=== PATIENT | male | born 1960 | race Caucasian/White ===

== ENCOUNTER 2018-02-17 14:40 | Inpatient (IN) | payer MEDICARE, OTHER ==
[~2018-02-17] VITALS: Ht 177.8 cm; Wt 80.5 kg
[~2018-02-17 14:40] MED LIST: ASPI-516 CHEW; CARV3.12 PO; CARV6.25 PO; COLA100C5; LORA1TAB12 PO; THERTAB17 PO
[2018-02-17 15:13] VITALS: BP 174/100; PULSE 80; RESP 20; TEMP 98.9; O2SAT 98
--- NOTE | 2018-02-17 16:51 | PD ---
HPI Chief Complaint: Injury Time Seen by Provider: 16:20 Travel History International Travel<30 days: No Contact w/Intl Traveler<30days: No Traveled to known affect area: No PFSH Past Medical History Diabetes: Yes Patient Takes Glucophage: No Hypertension: Yes Renal Failure: Yes (DAILY PERONTINEAL DIALYSIS) Past Surgical History Cardiac Surgery: Yes (QUAD BYPASS ) Cholecystectomy: Yes Social History Alcohol Use: No Tobacco Use: No Substance Use: No Allergies-Medications (Allergen,Severity, Reaction): Coded Allergies: gabapentin (Unverified Allergy, Mild, Itching, 02/17/18) Reported Meds & Prescriptions Reported Meds & Active Scripts Active Reported Aspirin 81 Mg Chew 81 Mg CHEW DAILY Colace (Docusate Sodium) 100 Mg Capsule Coreg (Carvedilol) 6.25 Mg Tab 6.25 Mg PO BID Lorazepam 1 Mg Tab 1 Mg PO BID PRN Thera-M (Multiple Vitamins W/ Minerals) 1 Tab 1 Tab PO DAILT Carvedilol 3.125 Mg Tab 3.125 Mg PO BID Data Data Last Documented VS Vital Signs Date Time Temp Pulse Resp B/P (MAP) Pulse Ox O2 Delivery O2 Flow Rate FiO2 02/17/18 15:13 98.9 80 20 174/100 (124) 98 Orders Orders Foot, Complete ([id number]) (02/17/18 ) Complete Blood Count With Diff (02/17/18 17:22) Basic Metabolic Panel (Bmp) (02/17/18 17:22) Westergren Sedimentation Rate (02/17/18 17:22) C-Reactive Protein (Crp) (02/17/18 17:22) Ecg Monitoring (02/17/18 17:22) Iv Access Insert/Monitor (02/17/18 17:22) Oximetry (02/17/18 17:22) Sodium Chloride 0.9% Flush (Ns Flush) (02/17/18 17:30) Tristan Shukla MD Feb 17, 2018 16:51
--- NOTE | 2018-02-17 17:02 | RADRPT ---
EXAM DATE/TIME: 02/17/2018 16:46 [place] COMPARISON: No previous studies available for comparison. INDICATIONS : Left foot pain Patient states he burn the top of foot. MEDICAL HISTORY : Diabetes mellitus type II. SURGICAL HISTORY : None. ENCOUNTER: Initial ACUITY: 1 day PAIN SCORE: 0/10 LOCATION: Left chest FINDINGS: Three view examination of the left foot demonstrates no soft tissue swelling, dislocation, or fractur e. The tarsal bones appear intact. Extensive digital artery calcifications. The interphalangeal a nd metatarsophalangeal joints are intact. The calcaneus is intact. Bony mineralization is normal. CONCLUSION: Negative fast myelitis Gene Garcia MD FACR on February 17, 2018 at 16:59 Board Certified Radiologist. This report was verified electronically.
--- NOTE | 2018-02-17 17:29 | PD ---
HPI Chief Complaint: Injury Time Seen by Provider: 16:20 Travel History International Travel<30 days: No Contact w/Intl Traveler<30days: No Traveled to known affect area: No History of Present Illness HPI Patient is a 57-year-old male presents emergency department for evaluation of left great toe, left second toe and left dorsum of the foot wounds. Patient states about a week ago he was sitting too close to a radiator and he brought the top of his foot. He states his been following with the wound care doctor in on Tuesday when seen she wanted to see him back on Tuesday because it was not too bad. When he went back today she noted that it was much worse and I directed him to the emergency department. Patient has not been on antibiotics, denies any significant pain. PFSH Past Medical History Diabetes: Yes Patient Takes Glucophage: No Hypertension: Yes Renal Failure: Yes (DAILY PERONTINEAL DIALYSIS) Past Surgical History Cardiac Surgery: Yes (QUAD BYPASS ) Cholecystectomy: Yes Social History Alcohol Use: No Tobacco Use: No Substance Use: No Allergies-Medications (Allergen,Severity, Reaction): Coded Allergies: gabapentin (Unverified Allergy, Mild, Itching, 02/17/18) Reported Meds & Prescriptions Reported Meds & Active Scripts Active Reported Ambien (Zolpidem Tartrate) 10 Mg Tab 10 Mg PO HS PRN Calcium Acetate (Calcium Acetate (Phosphate Bin) 667 Mg Cap 1 Tab PO TID Isosorbide Mononitrate ER (Isosorbide Mononitrate) 60 Mg Tab 60 Mg PO DAILY Aspirin 81 Mg Chew 81 Mg CHEW DAILY Coreg (Carvedilol) 6.25 Mg Tab 6.25 Mg PO BID Lorazepam 1 Mg Tab 1 Mg PO BID PRN Thera-M (Multiple Vitamins W/ Minerals) 1 Tab 1 Tab PO DAILT Review of Systems Except as stated in HPI: all other systems reviewed are Neg Physical Exam Narrative GENERAL: Well-developed well-nourished in no obvious distress SKIN: Focused skin assessment warm/dry. There is a second-degree burn over the less than 1% of the body surface area over the dorsum of his foot, surrounding small cysts first-degree lopez. There is dry gangrene over the distal third of the distal phalanx on the left great toe, the tip of the left second toe appears to be involved as well but only the tip and is only mildly discolored. Cap refill is brisk in the remainder of the toes peer HEAD: Atraumatic. Normocephalic. EYES: Pupils equal and round. No scleral icterus. No injection or drainage. ENT: No nasal bleeding or discharge. Mucous membranes pink and moist. NECK: Trachea midline. No JVD. CARDIOVASCULAR: Regular rate and rhythm. No murmur appreciated. RESPIRATORY: No accessory muscle use. Clear to auscultation. Breath sounds equal bilaterally. GASTROINTESTINAL: Abdomen soft, non-tender, nondistended. Hepatic and splenic margins not palpable. MUSCULOSKELETAL: No obvious deformities. No clubbing. No cyanosis. No edema. NEUROLOGICAL: Awake and alert. No obvious cranial nerve deficits. Motor grossly within normal limits. Normal speech. PSYCHIATRIC: Appropriate mood and affect; insight and judgment normal. Data Data Last Documented VS Vital Signs Date Time Temp Pulse Resp B/P (MAP) Pulse Ox O2 Delivery O2 Flow Rate FiO2 02/17/18 20:00 78 16 172/92 (118) 96 Room Air 02/17/18 15:13 98.9 Orders Orders Foot, Complete ([id number]) (02/17/18 ) Complete Blood Count With Diff (02/17/18 17:22) Basic Metabolic Panel (Bmp) (02/17/18 17:22) Westergren Sedimentation Rate (02/17/18 17:22) C-Reactive Protein (Crp) (02/17/18 17:22) Ecg Monitoring (02/17/18 17:22) Iv Access Insert/Monitor (02/17/18 17:22) Oximetry (02/17/18 17:22) Sodium Chloride 0.9% Flush (Ns Flush) (02/17/18 17:30) Piperacil-Tazo 3.375 Gm Premix (Zosyn 3. (02/17/18 18:30) Potassium, Serum (K) (02/17/18 22:44) Insulin Human Regular Inj (Novolin R Inj (02/17/18 20:00) Dextrose 50% In Rohit (Vial) Inj (D50w (Vi (02/17/18 19:45) Sodium Bicarbonate 8.4% Inj (Sodium Bica (02/17/18 19:45) Albuterol Concentrated Neb (Albuterol Co (02/17/18 19:45) Admit Order (Ed Use Only) (02/17/18 20:06) Labs Laboratory Tests Test 02/17/18 17:50 White Blood Count 9.2 TH/MM3 Red Blood Count 5.07 MIL/MM3 Hemoglobin 15.4 GM/DL Hematocrit 46.4 % Mean Corpuscular Volume 91.4 FL Mean Corpuscular Hemoglobin 30.3 PG Mean Corpuscular Hemoglobin Concent 33.1 % Red Cell Distribution Width 14.8 % Platelet Count 248 TH/MM3 Mean Platelet Volume 7.4 FL Neutrophils (%) (Auto) 63.1 % Lymphocytes (%) (Auto) 13.8 % Monocytes (%) (Auto) 12.2 % Eosinophils (%) (Auto) 9.6 % Basophils (%) (Auto) 1.3 % Neutrophils # (Auto) 5.8 TH/MM3 Lymphocytes # (Auto) 1.3 TH/MM3 Monocytes # (Auto) 1.1 TH/MM3 Eosinophils # (Auto) 0.9 TH/MM3 Basophils # (Auto) 0.1 TH/MM3 CBC Comment DIFF FINAL Differential Comment Erythrocyte Sedimentation Rate 49 mm/hr Blood Urea Nitrogen 44 MG/DL Creatinine 5.33 MG/DL Random Glucose 75 MG/DL Calcium Level 8.3 MG/DL Sodium Level 128 MEQ/L Potassium Level 6.5 MEQ/L Chloride Level 94 MEQ/L Carbon Dioxide Level 23.3 MEQ/L Anion Gap 11 MEQ/L Estimat Glomerular Filtration Rate 11 ML/MIN C-Reactive Protein 2.20 MG/DL MDM Medical Decision Making Medical Screen Exam Complete: Yes Emergency Medical Condition: Yes Differential Diagnosis Peripheral vascular disease, dry gangrene of the toes, third-degree burn is a possibility as well Narrative Course Patient seen and examined by me initially, he was discussed with the bilingual speech language pathologist on air host, initially the thought processes the patient may be able to go home with dry gangrene diagnosis and follow-up with a bilingual speech language pathologist. Patient was signed out to Dr. Moser, waiting for his final labs to disposition him appropriately. Diagnosis Primary Impression: Dry gangrene Referrals: María Hernandez DPTe[facility] Additional Instructions: Follow-up with Dr. Hernandez at 830 on Tuesday Disposition: 01 DISCHARGE HOME Condition: Stable Tristan Shukla MD Feb 17, 2018 17:29
[2018-02-17] MEDS ORDERED: SODIUM CHLORIDE 0.9% FLUSH 10 ML FLUSH IVF PRN (17:30)
[2018-02-17 18:20] LABS: AUTOMATED NEUTROPHIL # 5.8 TH/MM3 (1.8-7.7); BASOPHIL # 0.1 TH/MM3 (0-0.2); BASOPHIL % 1.3 % (0.0-2.0); EOSINOPHIL # 0.9 TH/MM3 (0-0.4); EOSINOPHIL % 9.6 % (0.0-4.0); HEMATOCRIT 46.4 % (39.0-51.0); HEMOGLOBIN 15.4 GM/DL (13.0-17.0); LYMPH % 13.8 % (9.0-44.0); LYMPHOCYTE # 1.3 TH/MM3 (1.0-4.8); MEAN CELL VOLUME 91.4 FL (80.0-100.0); MEAN CORPUSCULAR HEMOGLOBIN 30.3 PG (27.0-34.0); MEAN CORPUSCULAR HGB CONC 33.1 % (32.0-36.0); MEAN PLATELET VOLUME 7.4 FL (7.0-11.0); MONO % 12.2 % (0.0-8.0); MONOCYTE # 1.1 TH/MM3 (0-0.9); NEUT % 63.1 % (16.0-70.0); PLATELET COUNT 248 TH/MM3 (150-450); RED BLOOD COUNT 5.07 MIL/MM3 (4.50-5.90); RED CELL DISTRIBUTION WIDTH 14.8 % (11.6-17.2); WHITE BLOOD COUNT 9.2 TH/MM3 (4.0-11.0)
[2018-02-17 18:25] VITALS: O2SAT 98
[2018-02-17] MEDS ORDERED: PIPERACIL-TAZO 3.375 GM PREMIX 50 ML IV ONE (18:30)
[2018-02-17 18:48] LABS: BICARBONATE 23.3 MEQ/L (21.0-32.0); C-REACTIVE PROTEIN 2.2 MG/DL (0.00-0.30); CALCIUM 8.3 MG/DL (8.5-10.1); CREATININE 5.33 MG/DL (0.60-1.30)
[2018-02-17] MEDS ORDERED: RESP: ALBUTEROL CONC 2.5 MG/0.5 ML NEB INH ONE (19:45)
[2018-02-17] MEDS ORDERED: SODIUM BICARBONATE 8.4% SOLN 50 MEQ/50 ML VIAL SLOW IVP ONE (19:45)
[2018-02-17] MEDS ORDERED: DEXTROSE 50% IN WATER 50 ML VIAL(D50) IV PUSH ONE (19:45)
[2018-02-17 20:00] VITALS: BP 172/92; PULSE 78; RESP 16; O2SAT 96
[2018-02-17] MEDS ORDERED: INSULIN HUMAN REGULAR 1,000 UNITS/10 ML VIAL IV PUSH ONE (20:00)
--- NOTE | 2018-02-17 20:10 | HHI.HP ---
HPI Service [facility] Primary Care Physician Jarad Lin MD Admission Diagnosis HYPERKALEMIA, NECROTIC TOE Diagnoses: (1) Dry gangrene Diagnosis: Principal (2) ESRD on peritoneal dialysis Diagnosis: Principal (3) HTN (hypertension) Diagnosis: Principal Travel History International Travel<30 Days: No Contact w/Intl Traveler <30 Da: No Traveled to Known Affected Are: No History of Present Illness This is a 57-year-old male with PMH of ESRD on PD and HTN who was referred to the ER by Wound Care Doctor for further evaluation of foot wound. Pt states he was sitting close to a radiator approx 1wk ago and thinks he may have inadvertently burned his foot. Noticed "blistering" of 2nd toe and blister to dorsum of left foot 2 days ago. Was seen by Wound Care, had wounds cleaned and instructed to return today for wound re-check. Today, noted to have necrotic lesion to left 1st toe, which patient states started 2 days ago. Denies fever or chills. Following w/ Dr. Franks for Nephrology. On arrival, BP 134/100, HR 80, O2 sat 98% on RA, Afebrile. WBC normal. ESR 49. K+ 6.5. Foot X-ray negative for Osteomyelitis. Dr. Magdaleno consulted by ER physician, will evaluate for surgical intervention. Review of Systems Except as stated in HPI: all other systems reviewed are Neg ROS: 14 point review of systems otherwise negative. Past Family Social History Past Medical History PMH: ESRD on PD and HTN Past Surgical History PAST SURGICAL HISTORY: CABG, Cholecystectomy Allergies: Coded Allergies: gabapentin (Unverified Allergy, Mild, Itching, 02/17/18) Family History PAST FAMILY HISTORY: Reviewed. No h/o DM or CAD Social History PAST SOCIAL HISTORY: Negative for alcohol, tobacco or drugs. Physical Exam Vital Signs Vital Signs Date Time Temp Pulse Resp B/P (MAP) Pulse Ox O2 Delivery O2 Flow Rate FiO2 02/17/18 18:25 98 Room Air 02/17/18 15:13 98.9 80 20 174/100 (124) 98 Physical Exam PE: GENERAL: Middle-aged white male in no acute distress. HEENT: PERRLA, EOMI. No scleral icterus or conjunctival pallor. No lid lag or facial droop. CARDIOVASCULAR: Regular rate and rhythm. No obvious murmurs to auscultation. No chest tenderness to palpation. RESPIRATORY: No obvious rhonchi or wheezing. Clear to auscultation. Breath sounds equal bilaterally. GASTROINTESTINAL: Abdomen soft, non-tender, nondistended. BS normal. MUSCULOSKELETAL: Extremities without clubbing, cyanosis, or edema. No obvious deformities. Left 1st toe w/ necrotic wound to distal phalanx, blister along left 2nd toe and dorsum of left foot, no purulent drainage. NEUROLOGICAL: Awake, alert and oriented x4. No focal neurologic deficits. Moving both upper and lower extremities spontaneously. Laboratory Laboratory Tests Test 02/17/18 17:50 White Blood Count 9.2 Red Blood Count 5.07 Hemoglobin 15.4 Hematocrit 46.4 Mean Corpuscular Volume 91.4 Mean Corpuscular Hemoglobin 30.3 Mean Corpuscular Hemoglobin Concent 33.1 Red Cell Distribution Width 14.8 Platelet Count 248 Mean Platelet Volume 7.4 Neutrophils (%) (Auto) 63.1 Lymphocytes (%) (Auto) 13.8 Monocytes (%) (Auto) 12.2 Eosinophils (%) (Auto) 9.6 Basophils (%) (Auto) 1.3 Neutrophils # (Auto) 5.8 Lymphocytes # (Auto) 1.3 Monocytes # (Auto) 1.1 Eosinophils # (Auto) 0.9 Basophils # (Auto) 0.1 CBC Comment DIFF FINAL Differential Comment Erythrocyte Sedimentation Rate 49 Blood Urea Nitrogen 44 Creatinine 5.33 Random Glucose 75 Calcium Level 8.3 Sodium Level 128 Potassium Level 6.5 Chloride Level 94 Carbon Dioxide Level 23.3 Anion Gap 11 Estimat Glomerular Filtration Rate 11 C-Reactive Protein 2.20 Result Diagram: 02/17/18 17502/17/18 175 Caprini VTE Risk Assessment Caprini VTE Risk Assessment: Mod/High Risk (score >= 2) Caprini Risk Assessment Model Point Value = 1 Point Value = 2 Point Value = 3 Point Value = 5 Age 41-60 Minor surgery BMI > 25 kg/m2 Swollen legs Varicose veins or History of unexplained or recurrent spontaneous Oral contraceptives or hormone replacement Sepsis (< 1 month) Serious lung disease, including pneumonia (< 1 month) Abnormal pulmonary function Acute myocardial infarction Congestive heart failure (< 1 month) History of inflammatory bowel disease Medical patient at bed rest Age 61-74 Arthroscopic surgery Major open surgery (> 45 min) Laparoscopic surgery (> 45 min) Malignancy Confined to bed (> 72 hours) Immobilizing plaster cast Central venous access Age >= 75 History of VTE Family history of VTE Factor V Leiden Prothrombin [id number] Lupus anticoagulant Anticardiolipin antibodies Elevated serum homocysteine Heparin-induced thrombocytopenia Other congenital or acquired thrombophilia Stroke (< 1 month) Elective arthroplasty Hip, pelvis, or leg fracture Acute spinal cord injury (< 1 month) Prophylaxis Regimen Total Risk Factor Score Risk Level Prophylaxis Regimen 0-1 Low Early ambulation 2 Moderate Order ONE of the following: *Sequential Compression Device (SCD) *Heparin 5000 units SQ BID 3-4 Higher Order ONE of the following medications: *Heparin 5000 units SQ TID *Enoxaparin/Lovenox 40 mg SQ daily (WT < 150 kg, CrCl > 30 mL/min) *Enoxaparin/Lovenox 30 mg SQ daily (WT < 150 kg, CrCl > 10-29 mL/min) *Enoxaparin/Lovenox 30 mg SQ BID (WT < 150 kg, CrCl > 30 mL/min) AND/OR *Sequential Compression Device (SCD) 5 or more Highest Order ONE of the following medications: *Heparin 5000 units SQ TID (Preferred with Epidurals) *Enoxaparin/Lovenox 40 mg SQ daily (WT < 150 kg, CrCl > 30 mL/min) *Enoxaparin/Lovenox 30 mg SQ daily (WT < 150 kg, CrCl > 10-29 mL/min) *Enoxaparin/Lovenox 30 mg SQ BID (WT < 150 kg, CrCl > 30 mL/min) AND *Sequential Compression Device (SCD) Assessment and Plan Problem List: (1) Dry gangrene ICD Code: I96 - Gangrene, not elsewhere classified Status: Acute (2) HTN (hypertension) ICD Code: I10 - Essential (primary) hypertension (3) ESRD on peritoneal dialysis ICD Code: N18.6 - End stage renal disease; Z99.2 - Dependence on renal dialysis Assessment and Plan A/P: 1. Dry Gangrene: s/p burn to left foot w/ necrotic wound to left great toe, blisters to left 2nd toe and dorsum of left foot. Foot X-ray negative for osteomyelitis, images reviewed by me. Dr. Magdaleno consulted by ER physician, will evaluate for possible surgical intervention, NPO, IVF, analgesics/ antiemetics. Start IV Vanc/Cefepime. 2. ESRD on PD: Follows w/ Dr. Franks, consult placed to resume PD as scheduled. Resume home medications. 3. HTN: Uncontrolled. BP 170-200's while in ER, resume Imdur and Coreg, monitor BP. 4. DVT Prophylaxis: Heparin sq 5. Social work for d/c planning as needed. 6. Case discussed w/ ER physician at length, labs/records/imaging reviewed by me. Physician Certification 2 Midnight Certification Type: Admission for Inpatient Services Order for Inpatient Services The services are ordered in accordance with Medicare regulations or non- Medicare payer requirements, as applicable. In the case of services not specified as inpatient-only, they are appropriately provided as inpatient services in accordance with the 2-midnight benchmark. Estimated LOS (days): 2 days is the estimated time the patient will need to remain in the hospital, assuming treatment plan goals are met and no additional complications. Post-Hospital Plan: Not yet determined Priscila Pena MD Feb 17, 2018 20:10
[2018-02-17] MEDS ORDERED: BISACODYL 10 MG SUPP RECTAL PRN (20:15)
[2018-02-17] MEDS ORDERED: MAGNESIUM HYDROXIDE SUSP 30 ML CUP PO PRN (20:15)
[2018-02-17] MEDS ORDERED: VANCOMYCIN INJ 1,250 MG in SODIUM CHLOR 0.9% 250 ML INJ 250 ML IV ONE (20:15)
[2018-02-17] MEDS ORDERED: SENNOSIDES 8.6 MG TAB PO PRN (20:15)
[2018-02-17] MEDS ORDERED: ACETAMINOPHEN 325 MG TAB PO PRN (20:15)
[2018-02-17] MEDS ORDERED: SODIUM CHLORIDE 0.9% FLUSH 10 ML FLUSH IV FLUSH PRN (20:15)
[2018-02-17] MEDS: DOCUSATE SODIUM 50 MG/SENNA 8.6 MG TAB PO SCH (21:00)
[2018-02-17] MEDS: SODIUM CHLORIDE 0.9% FLUSH 10 ML FLUSH IV FLUSH SCH (21:00)
[2018-02-17] MEDS ORDERED: AMBI10TA PO (21:00)
[2018-02-17] MEDS ORDERED: ISOS60TA PO (21:00)
[2018-02-17] MEDS ORDERED: CALC667C PO (21:00)
[2018-02-17] MEDS: SODIUM CHLOR 0.9% 1000 ML INJ 1,000 ML IV SCH (21:21)
[2018-02-17 22:35] VITALS: BP 224/86; PULSE 86; RESP 18; TEMP 98; O2SAT 99
[2018-02-17 23:00] VITALS: BP 224/86; PULSE 86; RESP 19; TEMP 98; O2SAT 99
[2018-02-17 23:23] VITALS: BP 192/74
[2018-02-18] MEDS ORDERED: ISOSORBIDE MONONITRATE 60 MG CR TAB (IMDUR) PO ONE (00:15)
[2018-02-18] MEDS ORDERED: GLUCAGON 1 MG/ML VIAL OTHER PRN (00:15)
[2018-02-18] MEDS ORDERED: DEXTROSE 50% IN WATER 50 ML VIAL(D50) IV PUSH PRN (00:15)
[2018-02-18] MEDS ORDERED: CARVEDILOL 6.25 MG TAB PO ONE (00:15)
[2018-02-18] MEDS: ZOLPIDEM TARTRATE 10 MG TAB PO PRN ×2 (00:32→21:58)
[2018-02-18 02:10] LABS: BASOPHIL # 0.1 TH/MM3 (0-0.2); BASOPHIL % 1.2 % (0.0-2.0); EOSINOPHIL % 9.7 % (0.0-4.0); HEMATOCRIT 41.3 % (39.0-51.0); HEMOGLOBIN 13.7 GM/DL (13.0-17.0); LYMPHOCYTE # 1.5 TH/MM3 (1.0-4.8); MEAN CORPUSCULAR HEMOGLOBIN 30.3 PG (27.0-34.0); MEAN CORPUSCULAR HGB CONC 33.3 % (32.0-36.0); MEAN PLATELET VOLUME 7.3 FL (7.0-11.0); MONO % 14.2 % (0.0-8.0); MONOCYTE # 1.4 TH/MM3 (0-0.9); NEUT % 59.9 % (16.0-70.0); PLATELET COUNT 244 TH/MM3 (150-450); RED BLOOD COUNT 4.53 MIL/MM3 (4.50-5.90); RED CELL DISTRIBUTION WIDTH 14.6 % (11.6-17.2); WHITE BLOOD COUNT 9.9 TH/MM3 (4.0-11.0)
[2018-02-18 02:42] LABS: ALBUMIN 1.7 GM/DL (3.4-5.0); ALKALINE PHOSPHATASE 57 U/L (45-117); ALT (GPT) 17 U/L (12-78); AST (GOT) 21 U/L (15-37); BICARBONATE 26.2 MEQ/L (21.0-32.0); BLOOD UREA NITROGEN 43 MG/DL (7-18); CALCIUM 7.7 MG/DL (8.5-10.1); CHLORIDE 95 MEQ/L (98-107); CREATININE 5.37 MG/DL (0.60-1.30); GLOMERULAR FILTRATION RATE 11 ML/MIN (>89); GLUCOSE,RANDOM 85 MG/DL (74-106); SODIUM (NA) 134 MEQ/L (136-145); TOTAL BILIRUBIN ADULT 0.3 MG/DL (0.2-1.0); TOTAL PROTEIN 7.4 GM/DL (6.4-8.2)
[2018-02-18 04:00] VITALS: BP 156/64; PULSE 84; RESP 19; TEMP 98.1; O2SAT 99
[2018-02-18] MEDS: SODIUM CHLOR 0.9% 1000 ML INJ 1,000 ML IV SCH (05:14)
[2018-02-18] MEDS: INSULIN ASPART SUPPLEMENTAL SCALE SQ SCH ×4 (07:48→20:10)
[2018-02-18 08:00] VITALS: BP 134/63; PULSE 81; RESP 16; TEMP 98.1; O2SAT 96
[2018-02-18] MEDS: ISOSORBIDE MONONITRATE 60 MG CR TAB (IMDUR) PO SCH (08:18)
[2018-02-18] MEDS: CARVEDILOL 6.25 MG TAB PO SCH ×2 (08:18→20:04)
[2018-02-18] MEDS: CEFEPIME INJ 1,000 MG in SODIUM CHLORIDE 0.9% INJ 100 ML IV SCH (08:18)
[2018-02-18] MEDS: MULTIVITAMINS/MINERALS THERAPEUTIC TAB PO SCH (08:19)
[2018-02-18] MEDS: SODIUM CHLORIDE 0.9% FLUSH 10 ML FLUSH IV FLUSH SCH ×2 (08:19→20:05)
[2018-02-18] MEDS: DOCUSATE SODIUM 50 MG/SENNA 8.6 MG TAB PO SCH ×2 (08:19→20:04)
[2018-02-18] MEDS: HEPARIN SODIUM - SQ 10,000 UNITS/ML VIAL SQ SCH ×2 (08:19→20:10)
[2018-02-18] MEDS: CALCIUM ACETATE 667 MG CAP PO SCH ×3 (08:19→17:02)
--- NOTE | 2018-02-18 10:21 | HHI.PR ---
Subjective Remarks f/u for foot infection patient c/o not getting any of his medication. I reviewed his medication and his medication was restarted. he also stated he needs to be on nephro and higher protein diet. patient was very unhappy with his diet. Objective Vitals Vital Signs Date Time Temp Pulse Resp B/P (MAP) Pulse Ox O2 Delivery O2 Flow Rate FiO2 02/18/18 08:00 98.1 81 16 134/63 (86) 96 02/18/18 04:00 98.1 84 19 156/64 (94) 99 02/17/18 23:23 192/74 (113) Automatic Cuff 02/17/18 23:00 98.0 86 19 224/86 (132) 99 02/17/18 22:44 02/17/18 22:35 98.0 86 18 224/86 (132) 99 02/17/18 20:00 78 16 172/92 (118) 96 Room Air 02/17/18 18:25 98 Room Air 02/17/18 15:13 98.9 80 20 174/100 (124) 98 I/O 02/17/18 02/17/18 02/17/18 02/18/18 02/18/18 02/18/18 07:00 15:00 23:00 07:00 15:00 23:00 Intake Total 50 ml 520 ml Output Total 300 ml Balance 50 ml 220 ml Intake Oral 270 ml IV Total 50 ml 250 ml Output Urine Total 300 ml # Bowel Movements 0 Result Diagram: 02/18/18 0140 02/18/18 0140 Objective Remarks GENERAL: Middle-aged white male in no acute distress. CARDIOVASCULAR: Regular rate and rhythm. No obvious murmurs to auscultation. No chest tenderness to palpation. RESPIRATORY: No obvious rhonchi or wheezing. Clear to auscultation. Breath sounds equal bilaterally. GASTROINTESTINAL: Abdomen soft, non-tender, nondistended. BS normal. MUSCULOSKELETAL: Left 1st toe w/ necrotic wound to distal phalanx, blister along left 2nd toe and dorsum of left foot, no purulent drainage. N Medications and IVs Current Medications Sodium Chloride (NS Flush) 2 ml UNSCH PRN IVF FLUSH AFTER USING IV ACCESS Last administered on 02/17/18at 18:48; Start 02/17/18 at 17:30; Stop 02/17/18 at 23:22 ; Status DC Piperacillin Sod/ Tazobactam Sod 50 ml @ 100 mls/hr ONCE ONCE IV Last administered on 02/17/18at 18:48; Start 02/17/18 at 18:30; Stop 02/17/18 at 18:59 ; Status DC Insulin Human Regular (NovoLIN R INJ) 5 units ONCE ONCE IV PUSH Last administered on 02/17/18at 21:21; Start 02/17/18 at 20:00; Stop 02/17/18 at 20:01 ; Status DC Dextrose (D50w (Vial) Inj) 50 ml ONCE ONCE IV PUSH Last administered on at 21:19; Start 02/17/18 at 19:45; Stop 02/17/18 at 19:46; Status DC Sodium Bicarbonate (Sodium Bicarbonate 8.4% Inj) 50 meq ONCE ONCE SLOW IVP Last administered on 02/17/18at 21:21; Start 02/17/18 at 19:45; Stop 02/17/18 at 19:46; Status DC Albuterol Sulfate (Albuterol Concentrated Neb) 10 mg ONCE ONCE INH Last administered on 02/17/18at 19:54; Start 02/17/18 at 19:45; Stop 02/17/18 at 19:46 ; Status DC Vancomycin HCl 1250 mg/Sodium Chloride 262.5 ml @ 250 mls/hr ONCE ONCE IV Last administered on 02/18/18at 00:19; Start 02/17/18 at 20:15; Stop 02/17/18 at 21:17; Status DC Cefepime HCl 1000 mg/Sodium Chloride 100 ml @ 200 mls/hr DAILY IV Last administered on 02/18/18at 08:18; Start 02/18/18 at 09:00 Sodium Chloride 1,000 ml @ 100 mls/hr Q10H IV Last administered on 02/17/18at 21:21; Start 02/17/18 at 20:04; Stop 02/18/18 at 08:58; Status DC Sodium Chloride (NS Flush) 2 ml UNSCH PRN IV FLUSH FLUSH AFTER USING IV ACCESS ; Start 02/17/18 at 20:15 Sodium Chloride (NS Flush) 2 ml BID IV FLUSH Last administered on 02/18/18at 08: 19; Start 02/17/18 at 21:00 Ondansetron HCl (Zofran Inj) 4 mg Q6H PRN IVP NAUSEA OR VOMITING; Start at 20:15 Heparin Sodium (Porcine) (Heparin Inj) 5,000 units Q12H SQ Last administered on 02/18/18at 08:19; Start 02/18/18 at 09:00 Acetaminophen (Tylenol) 650 mg Q6H PRN PO FEVER/PAIN SCALE 1 TO 2 Last administered on 02/18/18at 00:37; Start 02/17/18 at 20:15 Acetaminophen/ Hydrocodone Bitart ([place] 5-325 Mg) 1 tab Q4H PRN PO PAIN SCALE 3 TO 5; Start 02/17/18 at 20:15 Morphine Sulfate (Morphine Inj) 2 mg Q3H PRN IV PUSH Pain 6-10; Start 02/17/18 at 20:15 Senna/Docusate Sodium (Jacqui-Colace) 1 tab BID PO Last administered on at 08:19; Start 02/17/18 at 21:00 Magnesium Hydroxide (Milk Of Magnesia Liq) 30 ml Q12H PRN PO Mild constipation ; Start 02/17/18 at 20:15 Sennosides (Senokot) 17.2 mg Q12H PRN PO Moderate constipation; Start 02/17/18 at 20:15 Bisacodyl (Dulcolax Supp) 10 mg DAILY PRN RECTAL SEVERE CONSITIPATION; Start at 20:15 Lactulose (Lactulose Liq) 30 ml DAILY PRN PO SEVERE CONSITIPATION; Start at 20:15 Calcium Acetate (Phoslo) 667 mg TID PO Last administered on 02/18/18at 08:19; Start 02/18/18 at 09:00 Carvedilol (Coreg) 6.25 mg BID PO Last administered on 02/18/18at 08:18; Start 02/18/18 at 09:00 Isosorbide Mononitrate (Imdur) 60 mg DAILY PO Last administered on 02/18/18at 08 :18; Start 02/18/18 at 09:00 Lorazepam (Ativan) 1 mg BID PRN PO ANXIETY; Start 02/17/18 at 23:15 Multivitamins/ Minerals Therapeutic (Theragran M Tab) 1 tab DAILY PO Last administered on 02/18/18at 08:19; Start 02/18/18 at 09:00 Zolpidem Tartrate (Ambien) 10 mg HS PRN PO INSOMNIA Last administered on at 00:32; Start 02/17/18 at 23:15 Isosorbide Mononitrate (Imdur) 60 mg ONCE ONCE PO Last administered on at 00:35; Start 02/18/18 at 00:15; Stop 02/18/18 at 00:28; Status DC Carvedilol (Coreg) 6.25 mg ONCE ONCE PO Last administered on 02/18/18at 00:34; Start 02/18/18 at 00:15; Stop 02/18/18 at 00:27; Status DC Dextrose (D50w (Vial) Inj) 50 ml UNSCH PRN IV PUSH HYPOGLYCEMIA-SEE COMMENTS; Start 02/18/18 at 00:15 Glucagon (Glucagon Inj) 1 mg UNSCH PRN OTHER HYPOGLYCEMIA-SEE COMMENTS; Start 02/18/18 at 00:15 Insulin Aspart (NovoLOG SUPPLEMENTAL SCALE) 1 ACHS SLIDING SCALE SQ ; Start at 08:00 A/P Problem List: (1) Dry gangrene ICD Code: I96 - Gangrene, not elsewhere classified Status: Acute (2) HTN (hypertension) ICD Code: I10 - Essential (primary) hypertension (3) ESRD on peritoneal dialysis ICD Code: N18.6 - End stage renal disease; Z99.2 - Dependence on renal dialysis Assessment and Plan This is a 57 y/o M with Dry Gangrene: - s/p burn to left foot w/ necrotic wound to left great toe, blisters to left 2nd toe and dorsum of left foot. Foot X-ray negative for osteomyelitis. Dr. Magdaleno consulted by ER physician, will evaluate for possible surgical intervention. on Start IV Vanc/Cefepime. ESRD on PD - Follows w/ Dr. Franks, consult placed to resume PD as scheduled. Resume home medications. HTN -Uncontrolled. BP 170-200's while in ER. -home medication resumed and BP improved. d/w nurse to call pharmacy to confirm his dosage of medication. DVT Prophylaxis: Heparin sq Ana Jon MD Feb 18, 2018 10:21
[2018-02-18] MEDS ORDERED: SODIUM CHLORIDE 0.9% FLUSH 10 ML FLUSH IV FLUSH PRN (11:00)
[2018-02-18] MEDS ORDERED: HEPARIN SODIUM - IV 10,000 UNITS/10 ML VIAL XX PRN (11:00)
[2018-02-18 12:00] VITALS: BP 150/66; PULSE 76; RESP 17; TEMP 97.6; O2SAT 99
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
--- NOTE | 2018-02-18 15:24 | RADRPT ---
EXAM DATE/TIME: 02/18/2018 00:00 [place] COMPARISON: No previous studies available for comparison. INDICATIONS : Foot infection TECHNIQUE: Five-station segmental examination of the lower extremities was performed. Pulsed-cuff waveform tracings and pressures were recorded. Ankle-brachial indices and toe-brachial indices were calculated. PRESSURES (mmHg): Brachial (arm): Right 233 Lower Thigh: Right CNO Left CNO Calf: Right CNO Left CNO Ankle: Right CNO Left CNO Toe: Right CNO Left 80 CHAVO: Right CNO Left CNO TBI: Unobtainable Left 0.34 PULSED CUFF WAVEFORMS: Demonstrate normal amplitude bilaterally. No pressure was obtained at the right first digit. CONCLUSION: The vessels could not be compressed. This can be from calcified vessels. Micheal Marti MD on February 18, 2018 at 15:21 Board Certified Radiologist. This report was verified electronically.
[2018-02-18 16:00] VITALS: BP 150/90; PULSE 78; RESP 19; TEMP 97.8; O2SAT 100
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
[2018-02-18 20:00] VITALS: BP 199/91; PULSE 79; RESP 18; TEMP 98.1; O2SAT 100
[2018-02-18] MEDS: LORazepam 1 MG TAB PO PRN (20:04)
[2018-02-19 00:23] VITALS: BP 172/80; PULSE 78; RESP 18; TEMP 98.3; O2SAT 99
[2018-02-19] MEDS: INSULIN ASPART SUPPLEMENTAL SCALE SQ SCH ×4 (07:11→20:21)
[2018-02-19 08:00] VITALS: BP 138/69; PULSE 83; RESP 16; TEMP 97.9; O2SAT 95
[2018-02-19] MEDS: CEFEPIME INJ 1,000 MG in SODIUM CHLORIDE 0.9% INJ 100 ML IV SCH (08:25)
[2018-02-19] MEDS: CARVEDILOL 6.25 MG TAB PO SCH ×2 (08:26→20:14)
[2018-02-19] MEDS: ISOSORBIDE MONONITRATE 60 MG CR TAB (IMDUR) PO SCH (08:26)
[2018-02-19] MEDS: HEPARIN SODIUM - SQ 10,000 UNITS/ML VIAL SQ SCH ×2 (08:26→20:15)
[2018-02-19] MEDS: SODIUM CHLORIDE 0.9% FLUSH 10 ML FLUSH IV FLUSH SCH ×2 (08:26→20:21)
[2018-02-19] MEDS: MULTIVITAMINS/MINERALS THERAPEUTIC TAB PO SCH (08:26)
[2018-02-19] MEDS: CALCIUM ACETATE 667 MG CAP PO SCH ×3 (08:26→17:01)
[2018-02-19] MEDS: DOCUSATE SODIUM 50 MG/SENNA 8.6 MG TAB PO SCH ×2 (08:27→20:14)
[2018-02-19] MEDS: COLLAGENASE OINT 30 GM TUBE TOPICAL SCH (08:30)
[2018-02-19 09:42] LABS: HEMATOCRIT 40.7 % (39.0-51.0); HEMOGLOBIN 13.7 GM/DL (13.0-17.0); MEAN CORPUSCULAR HEMOGLOBIN 30.3 PG (27.0-34.0); MEAN CORPUSCULAR HGB CONC 33.6 % (32.0-36.0); MEAN PLATELET VOLUME 7.4 FL (7.0-11.0); PLATELET COUNT 223 TH/MM3 (150-450); RED BLOOD COUNT 4.52 MIL/MM3 (4.50-5.90); RED CELL DISTRIBUTION WIDTH 14.6 % (11.6-17.2); WHITE BLOOD COUNT 9.6 TH/MM3 (4.0-11.0)
[2018-02-19 10:08] LABS: BICARBONATE 23.2 MEQ/L (21.0-32.0); CALCIUM 8.1 MG/DL (8.5-10.1); CREATININE 5.69 MG/DL (0.60-1.30)
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
[2018-02-19 12:00] VITALS: BP 175/78; PULSE 76; RESP 17; TEMP 98.1; O2SAT 98
[2018-02-19 16:00] VITALS: BP 176/79; PULSE 77; RESP 17; TEMP 98.2; O2SAT 98
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
[2018-02-19] MEDS: cloNIDine HCL 0.1 MG TAB PO PRN (17:06)
[2018-02-19 20:00] VITALS: BP 184/84; PULSE 90; RESP 18; TEMP 98.6; O2SAT 98
[2018-02-19] MEDS: LORazepam 1 MG TAB PO PRN (20:21)
[2018-02-20] VITALS: BP 186/82; PULSE 84; RESP 18; TEMP 99.4; O2SAT 94
[2018-02-20] MEDS: cloNIDine HCL 0.1 MG TAB PO PRN ×2 (00:24→15:44)
[2018-02-20 08:00] VITALS: BP 143/67; PULSE 77; RESP 18; TEMP 98.1; O2SAT 96
[2018-02-20] MEDS: INSULIN ASPART SUPPLEMENTAL SCALE SQ SCH ×4 (08:00→21:00)
[2018-02-20] MEDS: ISOSORBIDE MONONITRATE 60 MG CR TAB (IMDUR) PO SCH (08:16)
[2018-02-20] MEDS: CEFEPIME INJ 1,000 MG in SODIUM CHLORIDE 0.9% INJ 100 ML IV SCH (08:16)
[2018-02-20] MEDS: SODIUM CHLORIDE 0.9% FLUSH 10 ML FLUSH IV FLUSH SCH ×2 (08:16→21:44)
[2018-02-20] MEDS: LORazepam 1 MG TAB PO PRN ×2 (08:16→21:42)
[2018-02-20] MEDS: CALCIUM ACETATE 667 MG CAP PO SCH ×3 (08:17→18:08)
[2018-02-20] MEDS: DOCUSATE SODIUM 50 MG/SENNA 8.6 MG TAB PO SCH ×2 (08:17→21:37)
[2018-02-20] MEDS: MULTIVITAMINS/MINERALS THERAPEUTIC TAB PO SCH (08:17)
[2018-02-20] MEDS: CARVEDILOL 6.25 MG TAB PO SCH ×2 (08:17→21:37)
[2018-02-20] MEDS: HEPARIN SODIUM - SQ 10,000 UNITS/ML VIAL SQ SCH ×2 (08:17→21:38)
[2018-02-20] MEDS: COLLAGENASE OINT 30 GM TUBE TOPICAL SCH (08:18)
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
[2018-02-20 12:00] VITALS: BP 147/66; PULSE 77; RESP 18; TEMP 98; O2SAT 96
[2018-02-20 16:00] VITALS: BP 176/74; PULSE 80; RESP 18; TEMP 98.7; O2SAT 97
[2018-02-20 20:00] VITALS: BP 184/79; PULSE 80; RESP 20; TEMP 97.9; O2SAT 100
--- NOTE | 2018-02-20 21:19 | PD.CAR.PN ---
CVT Progress Note Subjective/Hospital Course: Patient seen full consult dictated Thanks J Objective: Vital Signs Date Time Temp Pulse Resp B/P (MAP) Pulse Ox O2 Delivery O2 Flow Rate FiO2 02/20/18 20:00 97.9 80 20 184/79 (114) 100 02/20/18 16:00 98.7 80 18 176/74 (108) 97 02/20/18 12:00 98.0 77 18 147/66 (93) 96 02/20/18 08:00 98.1 77 18 143/67 (92) 96 02/20/18 00:00 99.4 84 18 186/82 (116) 94 Result Diagram: 02/19/18 0810 02/19/18 0810 Sofya Junior MD Feb 20, 2018 21:19
[2018-02-21] VITALS: BP 145/65; PULSE 84; RESP 20; TEMP 98.3; O2SAT 97
[2018-02-21 08:00] VITALS: BP_SYST 124; PULSE 79; RESP 19; TEMP 97.8; O2SAT 96
[2018-02-21] MEDS: INSULIN ASPART SUPPLEMENTAL SCALE SQ SCH ×4 (08:00→21:00)
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
[2018-02-21] MEDS: SODIUM CHLORIDE 0.9% FLUSH 10 ML FLUSH IV FLUSH SCH ×2 (09:29→21:41)
[2018-02-21] MEDS: CEFEPIME INJ 1,000 MG in SODIUM CHLORIDE 0.9% INJ 100 ML IV SCH (09:29)
[2018-02-21] MEDS: CALCIUM ACETATE 667 MG CAP PO SCH ×3 (09:30→17:22)
[2018-02-21] MEDS: LORazepam 1 MG TAB PO PRN ×2 (09:30→21:37)
[2018-02-21] MEDS: CARVEDILOL 6.25 MG TAB PO SCH (09:30)
[2018-02-21] MEDS: MULTIVITAMINS/MINERALS THERAPEUTIC TAB PO SCH (09:31)
[2018-02-21] MEDS: ISOSORBIDE MONONITRATE 60 MG CR TAB (IMDUR) PO SCH (09:31)
[2018-02-21] MEDS: DOCUSATE SODIUM 50 MG/SENNA 8.6 MG TAB PO SCH ×2 (09:31→21:37)
[2018-02-21] MEDS: HEPARIN SODIUM - SQ 10,000 UNITS/ML VIAL SQ SCH ×2 (09:32→21:41)
[2018-02-21] MEDS: COLLAGENASE OINT 30 GM TUBE TOPICAL SCH (09:32)
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
[2018-02-21 12:00] VITALS: BP 194/80; PULSE 90; RESP 19; TEMP 97.4; O2SAT 95
[2018-02-21] MEDS: cloNIDine HCL 0.1 MG TAB PO PRN (12:11)
[2018-02-21] MEDS ORDERED: IOHEXOL 350 MG/ML 10 ML VIAL (for RAD DIAG) IVCONTRAST ONE (12:58)
--- NOTE | 2018-02-21 14:50 | RADRPT ---
EXAM DATE/TIME: 02/21/2018 12:39 [place] COMPARISON: ARTERIAL SEGMENTAL DOPPLER COMP W/TBI, February 18, 2018, 0:00. INDICATIONS : Left foot gangrene. IV CONTRAST: 78 cc Omnipaque 350 (iohexol) IV RADIATION DOSE: 2.97 CTDIvol (mGy) MEDICAL HISTORY : Cardiovascular disease. Hypertension. Renal failure, chronic.Diabetes. SURGICAL HISTORY : None. ENCOUNTER: Initial ACUITY: 1 week PAIN SCALE: 4/10 LOCATION: Bilateral lower extremity TECHNIQUE: Volumetric scanning was performed using a multi-row detector CT scanner. The data was post processed with a variety of visualization algorithms including full volume maximum intensity projection, multi -planar sliding thin slab reformation, curved planar reformation, and surface rendering techniques. Using automated exposure control and adjustment of the mA and/or kV according to patient size, radiat ion dose was kept as low as reasonably achievable to obtain optimal diagnostic quality images. DICO M format image data is available electronically for review and comparison. FINDINGS: Aorta/inflow: Scattered calcified plaque involving the infrarenal aorta and inflow vessels. No significant stenosis or aneurysmal change observed. The celiac, SMA, and renal arteries are patent. FIDENCIO is patent at its origin shows a 50% stenosis just inferior to the origin. Right lower extremity: The outflow vessels are diffusely calcified. No hemodynamically significant stenosis observed. All 3 trifurcation vessels are heavily calcified. This generates beam hardening artifact which limits the p atency evaluation. No definitive hemodynamically significant stenosis is observed. The plantar vessel s and dorsalis pedis artery do opacify with contrast. Left lower extremity: The outflow vessels are diffusely calcified. No hemodynamically significant stenosis observed. All 3 trifurcation vessels are heavily calcified. This generates beam hardening artifact which limits the p atency evaluation. Suspected high-grade stenoses seen involving the distal posterior tibial artery an d proximal anterior tibial artery. The plantar vessels and dorsalis pedis artery do opacify with cont rast. Other structures: A small left pleural effusion with associated atelectasis. A trace amount of ascitic fluid adjacent t o the liver. Peritoneal dialysis catheter coiled deep within the pelvis. Gallbladder is surgically ab sent. CONCLUSION: 1. Diffuse calcified plaque with patent inflow and outflow bilaterally. 2. Severe calcification of the trifurcation vessels bilaterally significantly limits their is evaluat ion. High-grade stenoses seen involving articular artery and posterior tibial artery on the left. On the right the trifurcation vessels are felt grossly patent. 3. Small left effusion with associated passive atelectasis. Elijah James Jr., MD on February 21, 2018 at 14:35 Board Certified Radiologist. This report was verified electronically.
[2018-02-21 16:00] VITALS: BP 213/95; PULSE 81; RESP 20; TEMP 97.2; O2SAT 99
[2018-02-21] MEDS ORDERED: NIFEdipine 30 MG SUSTAINED RELEASE TAB PO ONE (16:30)
[2018-02-21 17:28] VITALS: BP 194/93
[2018-02-21 20:00] VITALS: BP 180/85; PULSE 80; RESP 20; TEMP 98; O2SAT 99
[2018-02-21] MEDS: CARVEDILOL 12.5 MG TAB PO SCH (21:37)
[2018-02-22] VITALS: BP 187/85; PULSE 86; RESP 20; TEMP 98.5; O2SAT 97
[2018-02-22] MEDS: cloNIDine HCL 0.1 MG TAB PO PRN ×2 (00:37→21:39)
[2018-02-22 04:00] VITALS: BP 165/74; PULSE 88; RESP 20; TEMP 97.9; O2SAT 96
[2018-02-22 08:00] VITALS: BP 163/76; PULSE 85; RESP 16; TEMP 97.9; O2SAT 95
[2018-02-22] MEDS: INSULIN ASPART SUPPLEMENTAL SCALE SQ SCH ×4 (08:00→21:00)
[2018-02-22] MEDS: CARVEDILOL 12.5 MG TAB PO SCH ×2 (08:16→21:02)
[2018-02-22] MEDS: CALCIUM ACETATE 667 MG CAP PO SCH ×3 (08:16→17:29)
[2018-02-22] MEDS: ISOSORBIDE MONONITRATE 60 MG CR TAB (IMDUR) PO SCH (08:16)
[2018-02-22] MEDS: LORazepam 1 MG TAB PO PRN ×2 (08:16→21:02)
[2018-02-22] MEDS: CEFEPIME INJ 1,000 MG in SODIUM CHLORIDE 0.9% INJ 100 ML IV SCH (08:16)
[2018-02-22] MEDS: DOCUSATE SODIUM 50 MG/SENNA 8.6 MG TAB PO SCH ×2 (08:16→21:01)
[2018-02-22] MEDS: MULTIVITAMINS/MINERALS THERAPEUTIC TAB PO SCH (08:16)
[2018-02-22] MEDS: COLLAGENASE OINT 30 GM TUBE TOPICAL SCH (08:17)
[2018-02-22] MEDS: SODIUM CHLORIDE 0.9% FLUSH 10 ML FLUSH IV FLUSH SCH ×2 (08:17→21:04)
[2018-02-22] MEDS: HEPARIN SODIUM - SQ 10,000 UNITS/ML VIAL SQ SCH ×2 (08:17→21:01)
--- NOTE | 2018-02-22 10:00 | HHI.FPPN ---
Objective Vitals Vital Signs Date Time Temp Pulse Resp B/P (MAP) Pulse Ox O2 Delivery O2 Flow Rate FiO2 02/22/18 08:00 97.9 85 16 163/76 (105) 95 02/22/18 04:00 97.9 88 20 165/74 (104) 96 02/22/18 00:00 98.5 86 20 187/85 (119) 97 02/21/18 20:00 98.0 80 20 180/85 (116) 99 02/21/18 17:28 194/93 (126) 02/21/18 16:00 97.2 81 20 213/95 (134) 99 02/21/18 12:00 97.4 90 19 194/80 (118) 95 I/O 02/21/18 02/21/18 02/21/18 02/22/18 02/22/18 02/22/18 07:00 15:00 23:00 07:00 15:00 23:00 Intake Total 480 ml 340 ml 240 ml 240 ml 177 ml Output Total 0 ml 400 ml Balance 480 ml 340 ml -160 ml 240 ml 177 ml Intake Oral 480 ml 240 ml 240 ml 240 ml IV Total 100 ml Other 177 ml Output Urine Total 0 ml 400 ml # Voids 1 # Bowel Movements 1 Result Diagram: 02/19/18 0810 02/19/18 0810 Objective Remarks GENERAL: SKIN: Warm and dry. R midfoot amputee, MUSCULOSKELETAL: left foot wrapped NEUROLOGICAL: Awake and alert. No obvious cranial nerve deficits. Normal speech. PSYCHIATRIC: Appropriate mood and affect; insight and judgment normal. Medications and IVs Current Medications Medications (Trade) Dose Ordered Sig/Cesar Route Start Time Stop Time Status Last Admin Cefepime HCl 1000 mg/Sodium Chloride 100 ml @ 200 mls/hr DAILY IV 02/18/18 09:00 02/22/18 08:16 (NS Flush) 2 ml UNSCH PRN IV FLUSH 02/17/18 20:15 (NS Flush) 2 ml BID IV FLUSH 02/17/18 21:00 02/22/18 08:17 (Zofran Inj) 4 mg Q6H PRN IVP 02/17/18 20:15 (Heparin Inj) 5,000 units Q12H SQ 02/18/18 09:00 02/22/18 08:17 (Tylenol) 650 mg Q6H PRN PO 3/23/18 20:15 02/18/18 00:37 ([place] 5-325 Mg) 1 tab Q4H PRN PO 02/17/18 20:15 (Morphine Inj) 2 mg Q3H PRN IV PUSH 02/17/18 20:15 (Jacqui-Colace) 1 tab BID PO 02/17/18 21:00 02/22/18 08:16 (Milk Of Magnesia Liq) 30 ml Q12H PRN PO 02/17/18 20:15 (Senokot) 17.2 mg Q12H PRN PO 02/17/18 20:15 (Dulcolax Supp) 10 mg DAILY PRN RECTAL 02/17/18 20:15 (Lactulose Liq) 30 ml DAILY PRN PO 02/17/18 20:15 (Imdur) 60 mg DAILY PO 02/18/18 09:00 02/22/18 08:16 (Ativan) 1 mg BID PRN PO 02/17/18 23:15 02/22/18 08:16 (Theragran M Tab) 1 tab DAILY PO 02/18/18 09:00 02/22/18 08:16 (Ambien) 10 mg HS PRN PO 02/17/18 23:15 02/18/18 21:58 (D50w (Vial) Inj) 50 ml UNSCH PRN IV PUSH 02/18/18 00:15 (Glucagon Inj) 1 mg UNSCH PRN OTHER 02/18/18 00:15 (NovoLOG SUPPLEMENTAL SCALE) 1 ACHS SLIDING SCALE SQ 02/18/18 08:00 (Heparin Inj) 1,000 units WITH DIALYSIS PRN XX 02/18/18 11:00 (NS Flush) 10 ml UNSCH PRN IV FLUSH 02/18/18 11:00 (Santyl Oint) 1 applic DAILY TOPICAL 02/19/18 09:00 02/22/18 08:17 (Phoslo) 2,001 mg TID PO 02/19/18 18:00 02/22/18 08:16 (Catapres) 0.1 mg Q6H PRN PO 02/19/18 17:15 02/22/18 00:37 (Coreg) 12.5 mg BID PO 02/21/18 21:00 3/28/18 08:16 A/P Assessment and Plan Assessment and Plan- Dry Gangrene: - s/p burn to left foot w/ necrotic wound to left great toe, blisters to left 2nd toe and dorsum of left foot. Foot X-ray negative for osteomyelitis. Dr. Magdaleno consulted and following. Pending further workup for recommendations by vascular surgeon. ESRD on PD - Follows w/ Dr. Franks, resume PD as scheduled. Resume home medications. Hyponatremia: follow w labs Hypokalemia: replace cautiously HTN -Uncontrolled. BP 170-200's while in ER. -home medication resumed and BP improved. DVT Prophylaxis: Heparin sq Problem List: (1) Dry gangrene ICD Codes: I96 - Gangrene, not elsewhere classified Status: Acute (2) HTN (hypertension) ICD Codes: I10 - Essential (primary) hypertension (3) ESRD on peritoneal dialysis ICD Codes: N18.6 - End stage renal disease; Z99.2 - Dependence on renal dialysis Problem Qualifiers (1) HTN (hypertension): Qualified Codes: I10 - Essential (primary) hypertension Jarad Lin MD Feb 22, 2018 10:00
[2018-02-22 12:00] VITALS: BP 140/76; PULSE 77; RESP 16; TEMP 98.1; O2SAT 98
--- NOTE | 2018-02-22 12:53 | PD.CAR.PN ---
CVT Progress Note Subjective/Hospital Course: Patient seen full consult dictated Thanks Jaylen 02/22/2018 Patient with diffuse peripheral vascular disease. I reviewed the CTA with runoff. CTA with runoff confirms the clinical impression and findings. Patient has patent vessels and no hemodynamically significant stenosis in the inflow tract has a palpable pulses. Once we get to the level of the knees patient has very severe diffuse calcifications of the vessels but no hemodynamically significant stenosis with two-vessel runoff to each foot Based on the above there is no unreconstructable vascular disease present in either leg and this is simply reflection of long-standing atherosclerotic diabetic pattern Objective: Vital Signs Date Time Temp Pulse Resp B/P (MAP) Pulse Ox O2 Delivery O2 Flow Rate FiO2 02/22/18 12:00 98.1 77 16 140/76 (97) 98 02/22/18 08:00 97.9 85 16 163/76 (105) 95 02/22/18 04:00 97.9 88 20 165/74 (104) 96 02/22/18 00:00 98.5 86 20 187/85 (119) 97 02/21/18 20:00 98.0 80 20 180/85 (116) 99 02/21/18 17:28 194/93 (126) 02/21/18 16:00 97.2 81 20 213/95 (134) 99 Result Diagram: 02/19/18 0810 02/19/18 0810 Sofya Junior MD Feb 22, 2018 12:53
[2018-02-22 15:07] LABS: BICARBONATE 26.4 MEQ/L (21.0-32.0); CALCIUM 8.5 MG/DL (8.5-10.1); CREATININE 6.18 MG/DL (0.60-1.30); MAGNESIUM 2.4 MG/DL (1.5-2.5); PHOSPHORUS 4.3 MG/DL (2.5-4.9)
--- NOTE | 2018-02-22 15:12 | HHI.NPPN ---
Subjective General Problems: Hypertension Renal Failure: End Stage Renal Disease History of Present Illness Patient is a 57-year-old ESRD patient on peritoneal dialysis with gangrene of toes Additional Remarks PD last night. Does not feel as though enough fluid is being removed. (Bertha Lane) Review of Systems Respiratory Respiratory Remarks Denies SOB (Bertha Lane) Cardiovascular Cardiac Remarks Denies CP (Bertha Lane) Gastrointestinal GI Remarks Denies abdominal pain (Bertha Lane) Objective Data Data 02/22/18 02/23/18 19:00 07:00 Intake Total 277 ml Balance 277 ml IV Total 100 ml Other 177 ml Vital Signs Date Time Temp Pulse Resp B/P (MAP) Pulse Ox O2 Delivery O2 Flow Rate FiO2 02/22/18 12:00 98.1 77 16 140/76 (97) 98 02/22/18 08:00 97.9 85 16 163/76 (105) 95 02/22/18 04:00 97.9 88 20 165/74 (104) 96 02/22/18 00:00 98.5 86 20 187/85 (119) 97 02/21/18 20:00 98.0 80 20 180/85 (116) 99 02/21/18 17:28 194/93 (126) 02/21/18 16:00 97.2 81 20 213/95 (134) 99 ([address]) -: 02/19/18 0810 02/19/18 0810 Physical Exam General Appearance: Well Developed, Well Nourished, No Acute Distress (Bertha Lane) Neck Neck Exam: Neck Supple (Bertha Lane) Pulmonary Resp Exam: Clear Bilaterally (Bertha Lane) Cardiology CV Exam: Regular, Normal Sinus Rhythm (Bertha Lane) Gastrointestinal/Abdomen GI Exam: Soft, Non-Tender, Bowel Sounds Present GI Remarks PD catheter (Bertha Lane) Genitourinary Exam: Flank Non-Tender (Bertha Lane) Integumentary Skin Exam: Lesion(s) Skin Remarks left foot with necrotic toes (Bertha Lane) Extremeties Extremities Exam: Trace Edema (Bertha Lane) Neurologic Neuro Exam: Alert, Awake, Oriented (Bertha Lane) Psychiatric Psych Exam: Appropriate Responses (Bertha Lane) Assessment/Plan Discussed Condition With: Patient Assessment Summary: End Stage Renal Disease Electrolyte Assessment: Hyponatremia Problem List: (1) ESRD on peritoneal dialysis ICD Codes: N18.6 - End stage renal disease; Z99.2 - Dependence on renal dialysis Plan: ESRD on PD nightly PD last nightly CTA noted. Plan Continue PD nightly Continue Phoslo Continue Nepro. HTN noted coreg increased yesterday (2) HTN (hypertension) ICD Codes: I10 - Essential (primary) hypertension Plan: Continued home medications. Coreg increased yesterday Clonidine 0.1 PRN (3) Dry gangrene ICD Codes: I96 - Gangrene, not elsewhere classified Status: Acute Plan: History of burn to left foot Podiatry and surgery consulted Vascular surgery consulted. (Bertha Lane) Problem List: (1) ESRD on peritoneal dialysis ICD Codes: N18.6 - End stage renal disease; Z99.2 - Dependence on renal dialysis Plan: ESRD on PD nightly PD last nightly CTA noted. Plan Continue PD nightly Continue Phoslo Continue Nepro. HTN noted coreg increased yesterday. Patient seen and examined, agree with above. BP improving, continue same PD. (2) HTN (hypertension) ICD Codes: I10 - Essential (primary) hypertension Plan: Continued home medications. Coreg increased yesterday Clonidine 0.1 PRN (3) Dry gangrene ICD Codes: I96 - Gangrene, not elsewhere classified Status: Acute Plan: History of burn to left foot Podiatry and surgery consulted Vascular surgery consulted. (Kishore Franks MD) Problem Qualifiers (1) HTN (hypertension): Qualified Codes: I10 - Essential (primary) hypertension Bertha Lane Feb 22, 2018 15:12 Kishore Franks MD Feb 22, 2018 18:37
[2018-02-22 16:00] VITALS: BP 156/73; PULSE 76; RESP 16; TEMP 97.8; O2SAT 98
[2018-02-22 20:00] VITALS: BP 169/76; PULSE 80; RESP 18; TEMP 97.1; O2SAT 100
[2018-02-23] VITALS: BP 183/82; PULSE 81; RESP 18; TEMP 97.7; O2SAT 98
[2018-02-23 04:00] VITALS: BP 192/81; PULSE 85; RESP 20; TEMP 98.1; O2SAT 96
[2018-02-23] MEDS: cloNIDine HCL 0.1 MG TAB PO PRN ×2 (04:20→11:34)
[2018-02-23 08:00] VITALS: BP 143/70; PULSE 52; RESP 17; TEMP 97.2; O2SAT 91
[2018-02-23] MEDS: INSULIN ASPART SUPPLEMENTAL SCALE SQ SCH ×4 (08:00→21:00)
[2018-02-23] MEDS: SODIUM CHLORIDE 0.9% FLUSH 10 ML FLUSH IV FLUSH SCH ×2 (09:37→21:56)
[2018-02-23] MEDS: HEPARIN SODIUM - SQ 10,000 UNITS/ML VIAL SQ SCH ×2 (09:38→21:56)
[2018-02-23] MEDS: DOCUSATE SODIUM 50 MG/SENNA 8.6 MG TAB PO SCH ×2 (09:39→21:49)
[2018-02-23] MEDS: CALCIUM ACETATE 667 MG CAP PO SCH ×3 (09:39→17:38)
[2018-02-23] MEDS: CARVEDILOL 12.5 MG TAB PO SCH ×2 (09:39→21:49)
[2018-02-23] MEDS: ISOSORBIDE MONONITRATE 60 MG CR TAB (IMDUR) PO SCH (09:40)
[2018-02-23] MEDS: MULTIVITAMINS/MINERALS THERAPEUTIC TAB PO SCH (09:40)
[2018-02-23] MEDS: COLLAGENASE OINT 30 GM TUBE TOPICAL SCH (09:40)
[2018-02-23] MEDS: CEFEPIME INJ 1,000 MG in SODIUM CHLORIDE 0.9% INJ 100 ML IV SCH (09:46)
--- NOTE | 2018-02-23 11:17 | HHI.NPPN ---
Subjective General Problems: Hypertension Renal Failure: End Stage Renal Disease History of Present Illness Patient is a 57-year-old ESRD patient on peritoneal dialysis with gangrene of toes Additional Remarks PD last night. Patient resting on side and shaky. No SOB or edema. (Bertha Lane) Review of Systems Respiratory Respiratory Remarks Denies SOB (Bertha Lane) Cardiovascular Cardiac Remarks Denies CP (Bertha Lane) Gastrointestinal GI Remarks Denies abdominal pain (Bertha Lane) Objective Data Data 02/23/18 02/24/18 19:00 07:00 Output Total 0 ml Balance 0 ml Peritoneal Fluid 0 ml Vital Signs Date Time Temp Pulse Resp B/P (MAP) Pulse Ox O2 Delivery O2 Flow Rate FiO2 02/23/18 08:00 97.2 52 17 143/70 (94) 91 02/23/18 04:00 98.1 85 20 192/81 (118) 96 02/23/18 00:00 97.7 81 18 183/82 (115) 98 02/22/18 20:00 97.1 80 18 169/76 (107) 100 02/22/18 16:00 97.8 76 16 156/73 (100) 98 02/22/18 12:00 98.1 77 16 140/76 (97) 98 (Bertha [address]) -: 02/19/18 0810 02/22/18 1408 Physical Exam General Appearance: Well Developed, Well Nourished, No Acute Distress (Bertha Lane) Neck Neck Exam: Neck Supple (Bertha Lane) Pulmonary Resp Exam: Clear Bilaterally (Bertha Lane) Cardiology CV Exam: Regular, Normal Sinus Rhythm (Bertha Lane) Gastrointestinal/Abdomen GI Exam: Soft, Non-Tender, Bowel Sounds Present GI Remarks PD catheter (Bertha Lane) Genitourinary Exam: Flank Non-Tender (Bertha Lane) Integumentary Skin Exam: Lesion(s) Skin Remarks left foot with necrotic toes (Bertha Lane) Extremeties Extremities Exam: Trace Edema (Bertha Lane) Neurologic Neuro Exam: Alert, Awake, Oriented (Bertha Lane) Psychiatric Psych Exam: Appropriate Responses (Bertha Lane) Assessment/Plan Discussed Condition With: Patient Assessment Summary: End Stage Renal Disease Electrolyte Assessment: Hyponatremia Problem List: (1) ESRD on peritoneal dialysis ICD Codes: N18.6 - End stage renal disease; Z99.2 - Dependence on renal dialysis Plan: ESRD on PD nightly CTA noted. Plan Hyponatremia with sodium level of 127 Fluid restriction ordered. Continue PD nightly Continue Phoslo Continue Nepro. (2) HTN (hypertension) ICD Codes: I10 - Essential (primary) hypertension Plan: Coreg and nifedipine added Clonidine 0.1 PRN (3) Dry gangrene ICD Codes: I96 - Gangrene, not elsewhere classified Status: Acute Plan: History of burn to left foot Podiatry and surgery consulted Vascular surgery consulted. (Bertha Lane) Problem List: (1) ESRD on peritoneal dialysis ICD Codes: N18.6 - End stage renal disease; Z99.2 - Dependence on renal dialysis Plan: ESRD on PD nightly CTA noted. Plan Hyponatremia with sodium level of 127 Fluid restriction ordered. Continue PD nightly Continue Phoslo Continue Nepro. Patient seen and examined, agree with above. Possible D/C. (2) HTN (hypertension) ICD Codes: I10 - Essential (primary) hypertension Plan: Coreg and nifedipine added Clonidine 0.1 PRN (3) Dry gangrene ICD Codes: I96 - Gangrene, not elsewhere classified Status: Acute Plan: History of burn to left foot Podiatry and surgery consulted Vascular surgery consulted. (Kishore Franks MD) Problem Qualifiers (1) HTN (hypertension): Qualified Codes: I10 - Essential (primary) hypertension Bertha Lane Feb 23, 2018 11:17 Kishore Franks MD Feb 23, 2018 18:02
[2018-02-23 12:00] VITALS: BP 185/93; PULSE 85; RESP 19; TEMP 97.3; O2SAT 95
[2018-02-23 16:00] VITALS: BP 187/88; PULSE 88; RESP 19; TEMP 97.7; O2SAT 96
[2018-02-23] MEDS ORDERED: AMBI10TA PO (17:20)
[2018-02-23] MEDS ORDERED: LORA1TAB12 PO (17:20)
--- NOTE | 2018-02-23 17:21 | HHI.DCPOC ---
Discharge Care Plan Your Health Problems Are: Anxiety Incision/Drains Inflammation Leg Swelling Loss of Movements Chronic Pain Shortness of Breath Difficulty with Speech Goals to Promote Your Health * To prevent worsening of your condition and complications * To maintain your health at the optimal level Directions to Meet Your Goals Take your medications as prescribed Follow your dietary instruction Follow activity as directed Keep your appointments as scheduled Take your immunizations and boosters as scheduled If your symptoms worsen call your PCP, if no PCP go to Urgent Care Center or Emergency Room Smoking is Dangerous to Your Health. Avoid second hand smoke Call the 24-hour hour crisis hotline for domestic abuse at Jarad Lin MD Feb 23, 2018 17:21
--- NOTE | 2018-02-23 17:22 | HHI.DS ---
Discharge Summary Admission Date Feb 17, 2018 at 20:08 Discharge Date: Feb 23, 2018 Admitting Diagnosis HYPERKALEMIA, NECROTIC TOE (1) Dry gangrene ICD Codes: I96 - Gangrene, not elsewhere classified Status: Acute (2) HTN (hypertension) ICD Codes: I10 - Essential (primary) hypertension (3) ESRD on peritoneal dialysis ICD Codes: N18.6 - End stage renal disease; Z99.2 - Dependence on renal dialysis CBC/BMP: 02/19/18 0810 02/22/18 1408 Significant Findings Laboratory Tests Test 02/22/18 14:08 Blood Urea Nitrogen 73 MG/DL (7-18) Creatinine 6.18 MG/DL (0.60-1.30) Sodium Level 127 MEQ/L (136-145) Chloride Level 92 MEQ/L (98-107) Estimat Glomerular Filtration Rate 9 ML/MIN (>89) PE at Discharge GENERAL: SKIN: Warm and dry. HEAD: Atraumatic. Normocephalic. EYES: Pupils equal and round. No scleral icterus. No injection or drainage. ENT: No nasal bleeding or discharge. Mucous membranes pink and moist. NECK: Trachea midline. No JVD. CARDIOVASCULAR: Regular rate and rhythm. RESPIRATORY: No accessory muscle use. Clear to auscultation. Breath sounds equal bilaterally. GASTROINTESTINAL: Abdomen soft, non-tender, nondistended. Hepatic and splenic margins not palpable. MUSCULOSKELETAL: Extremities without clubbing, cyanosis, or edema. No obvious deformities. NEUROLOGICAL: Awake and alert. No obvious cranial nerve deficits. Motor grossly within normal limits. Five out of 5 muscle strength in the arms and legs. Normal speech. PSYCHIATRIC: Appropriate mood and affect; insight and judgment normal. Hospital Course Dry Gangrene: - s/p burn to left foot w/ necrotic wound to left great toe, blisters to left 2nd toe and dorsum of left foot. Foot X-ray negative for osteomyelitis. Dr. Magdaleno consulted. Nonsurgical per Dr York of vascular. ESRD on PD - Follows w/ Dr. Franks, resume PD as scheduled. Resume home medications. Hyponatremia: follow w labs Hypokalemia: replace cautiously HTN -Uncontrolled. BP 170-200's while in ER. -home medication resumed and BP improved. Tremors -chronic, stable, not septic PT asking for dc. Wants home, but agrees to SNF for short while and wound care. d/w RN and CM. Pt Condition on Discharge: Stable Discharge Disposition: Discharge to SNF Discharge Instructions DIET: Follow Instructions for: Renal Failure Diet Activities you can perform: See Additionl Instruction Additional Activity Instructio: see podiatry recomendations Follow up Referrals: Nephrology - 2-[address] Reese PCP Follow-up - 2-[address] arnold Podiatry - 2-3 Days with María Hernandez DPM Continued Medications: Aspirin (Aspirin) 81 Mg Chew 81 MG CHEW DAILY, TAB 0 Refills Calcium Acetate (Phosphate Bin (Calcium Acetate) 667 Mg Cap 1 TAB PO TID Carvedilol (Coreg) 6.25 Mg Tab 6.25 MG PO BID, #60 TAB 0 Refills Isosorbide Mononitrate ER (Isosorbide Mononitrate ER) 60 Mg Tab 60 MG PO DAILY for Prevent Chest Pain, #30 TAB 0 Refills Lorazepam (Lorazepam) 1 Mg Tab 1 MG PO BID PRN for ANXIETY, #60 TAB 0 Refills (This prescription has been renewed) Multiple Vitamins W/ Minerals (Thera-M) 1 Tab 1 TAB PO DAILT for Nutritional Supplement, TAB 0 Refills Zolpidem (Ambien) 10 Mg Tab 10 MG PO HS PRN for INSOMNIA, #30 TAB 0 Refills (This prescription has been renewed) Jarad Arnold MD Feb 23, 2018 17:22
[2018-02-23 20:00] VITALS: BP 163/76; PULSE 93; RESP 18; TEMP 97.8; O2SAT 95
[2018-02-23 21:02] LABS: AUTOMATED NEUTROPHIL # 7.1 TH/MM3 (1.8-7.7); BASOPHIL # 0.1 TH/MM3 (0-0.2); BASOPHIL % 1.3 % (0.0-2.0); EOSINOPHIL # 0.3 TH/MM3 (0-0.4); HEMATOCRIT 39.1 % (39.0-51.0); HEMOGLOBIN 12.7 GM/DL (13.0-17.0); LYMPH % 8.7 % (9.0-44.0); LYMPHOCYTE # 0.8 TH/MM3 (1.0-4.8); MEAN CELL VOLUME 90.2 FL (80.0-100.0); MEAN CORPUSCULAR HEMOGLOBIN 29.4 PG (27.0-34.0); MEAN CORPUSCULAR HGB CONC 32.6 % (32.0-36.0); MEAN PLATELET VOLUME 8.6 FL (7.0-11.0); MONO % 10.2 % (0.0-8.0); MONOCYTE # 0.9 TH/MM3 (0-0.9); NEUT % 76.8 % (16.0-70.0); PLATELET COUNT 205 TH/MM3 (150-450); RED BLOOD COUNT 4.33 MIL/MM3 (4.50-5.90); RED CELL DISTRIBUTION WIDTH 14.7 % (11.6-17.2); WHITE BLOOD COUNT 9.2 TH/MM3 (4.0-11.0)
[2018-02-23 21:29] LABS: ALBUMIN 1.8 GM/DL (3.4-5.0); ALKALINE PHOSPHATASE 71 U/L (45-117); ALT (GPT) 29 U/L (12-78); AST (GOT) 56 U/L (15-37); BLOOD UREA NITROGEN 85 MG/DL (7-18); CALCIUM 8.5 MG/DL (8.5-10.1); CHLORIDE 92 MEQ/L (98-107); CREATININE 6.48 MG/DL (0.60-1.30); GLOMERULAR FILTRATION RATE 9 ML/MIN (>89); GLUCOSE,RANDOM 182 MG/DL (74-106); SODIUM (NA) 127 MEQ/L (136-145); TOTAL BILIRUBIN ADULT 0.4 MG/DL (0.2-1.0); TOTAL PROTEIN 7.8 GM/DL (6.4-8.2)
[2018-02-23] MEDS: LORazepam 1 MG TAB PO PRN (21:48)
[2018-02-24] VITALS (10 sets, daily range): BP systolic 113–202; BP diastolic 61–92; PULSE 85–101; RESP 16–22; TEMP 97.6–99.2; O2SAT 94–99
[2018-02-24] MEDS: INSULIN ASPART SUPPLEMENTAL SCALE SQ SCH ×4 (08:00→21:00)
[2018-02-24 08:35] LABS: CALCIUM 8.4 MG/DL (8.5-10.1); CREATININE 6.25 MG/DL (0.60-1.30)
--- NOTE | 2018-02-24 08:51 | HHI.FPPN ---
Subjective Remarks called after discharged pt re increased tremors and pt is weaker. Discharge held. slight tremors, and less responsive overnight per report this am from RN. Objective Vitals Vital Signs Date Time Temp Pulse Resp B/P (MAP) Pulse Ox O2 Delivery O2 Flow Rate FiO2 02/24/18 08:00 98.4 100 17 150/74 (99) 95 02/24/18 00:00 99.0 101 20 125/92 (103) 94 02/23/18 20:00 97.8 93 18 163/76 (105) 95 02/23/18 16:00 97.7 88 19 187/88 (121) 96 02/23/18 12:00 97.3 85 19 185/93 (123) 95 I/O 02/23/18 02/23/18 02/23/18 02/24/18 02/24/18 02/24/18 07:00 15:00 23:00 07:00 15:00 23:00 Intake Total 360 ml 0 ml 120 ml Output Total 100 ml 0 ml Balance 260 ml 0 ml 0 ml 120 ml Intake Oral 360 ml 0 ml 120 ml Output Urine Total 100 ml Peritoneal Fluid 0 ml # Voids 0 # Bowel Movements 0 Result Diagram: 02/23/18201502/24/18727 Objective Remarks GENERAL: increased overall weakness, SKIN: Warm and dry. HEAD: Atraumatic. Normocephalic. EYES: Pupils equal and round. No scleral icterus. No injection or drainage. ENT: No nasal bleeding or discharge. Mucous membranes pink and moist. NECK: Trachea midline. No JVD. CARDIOVASCULAR: Regular rate and rhythm. RESPIRATORY: No accessory muscle use. Clear to auscultation. Breath sounds equal bilaterally. GASTROINTESTINAL: Abdomen soft, non-tender, nondistended. Hepatic and splenic margins not palpable. MUSCULOSKELETAL: Extremities without clubbing, cyanosis, or edema. wounds at feet are stable. NEUROLOGICAL: Awake and alert x one. No obvious cranial nerve deficits. Motor grossly within normal limits. 1 out of 5 muscle strength in the arms and legs. Normal speech. PSYCHIATRIC: Appropriate mood and affect; insight and judgment normal. Medications and IVs Current Medications Medications (Trade) Dose Ordered Sig/Cesar Route Start Time Stop Time Status Last Admin Cefepime HCl 1000 mg/Sodium Chloride 100 ml @ 200 mls/hr DAILY IV 02/18/18 09:00 02/23/18 09:46 (NS Flush) 2 ml UNSCH PRN IV FLUSH 02/17/18 20:15 (NS Flush) 2 ml BID IV FLUSH 02/17/18 21:00 02/23/18 21:56 (Zofran Inj) 4 mg Q6H PRN IVP 02/17/18 20:15 (Heparin Inj) 5,000 units Q12H SQ 02/18/18 09:00 02/23/18 21:56 (Tylenol) 650 mg Q6H PRN PO 02/17/18 20:15 02/18/18 00:37 ([place] 5-325 Mg) 1 tab Q4H PRN PO 02/17/18 20:15 (Morphine Inj) 2 mg Q3H PRN IV PUSH 02/17/18 20:15 (Jacqui-Colace) 1 tab BID PO 02/17/18 21:00 02/23/18 21:49 (Milk Of Magnesia Liq) 30 ml Q12H PRN PO 02/17/18 20:15 (Senokot) 17.2 mg Q12H PRN PO 02/17/18 20:15 (Dulcolax Supp) 10 mg DAILY PRN RECTAL 02/17/18 20:15 (Lactulose Liq) 30 ml DAILY PRN PO 02/17/18 20:15 (Imdur) 60 mg DAILY PO 02/18/18 09:00 02/23/18 09:40 (Ativan) 1 mg BID PRN PO 02/17/18 23:15 02/23/18 21:48 (Theragran M Tab) 1 tab DAILY PO 02/18/18 09:00 02/23/18 09:40 (Ambien) 10 mg HS PRN PO 02/17/18 23:15 02/18/18 21:58 (D50w (Vial) Inj) 50 ml UNSCH PRN IV PUSH 02/18/18 00:15 (Glucagon Inj) 1 mg UNSCH PRN OTHER 02/18/18 00:15 (NovoLOG SUPPLEMENTAL SCALE) 1 ACHS SLIDING SCALE SQ 02/18/18 08:00 (Heparin Inj) 1,000 units WITH DIALYSIS PRN XX 02/18/18 11:00 (NS Flush) 10 ml UNSCH PRN IV FLUSH 02/18/18 11:00 (Santyl Oint) 1 applic DAILY TOPICAL 02/19/18 09:00 02/23/18 09:40 (Phoslo) 2,001 mg TID PO 02/19/18 18:00 02/23/18 16:05 (Catapres) 0.1 mg Q6H PRN PO 02/19/18 17:15 02/23/18 11:34 (Coreg) 12.5 mg BID PO 02/21/18 21:00 02/23/18 21:49 A/P Assessment and Plan Assessment and Plan- AMS: discharge held yesterday. AMS due to metabolic enceph from uremia vs sepsis from gangrene vs CV event. Ordered CT HEAD, BLOOD CULTURES, UA, ammonia, ABG, Neurology consult for AMS, ID consult for r/o sepsis Dry Gangrene: - s/p burn to left foot w/ necrotic wound to left great toe, blisters to left 2nd toe and dorsum of left foot. Foot X-ray negative for osteomyelitis. Dr. Magdaleno reconsulted. ESRD on PD - Follows w/ Dr. Franks, resume PD as scheduled. Resume home medications. Hyponatremia: follow w labs Hypokalemia: replace cautiously HTN -Uncontrolled. BP 170-200's while in ER. -home medication resumed and BP improved. DVT Prophylaxis: Heparin sq Problem List: (1) Dry gangrene ICD Codes: I96 - Gangrene, not elsewhere classified Status: Acute (2) HTN (hypertension) ICD Codes: I10 - Essential (primary) hypertension (3) ESRD on peritoneal dialysis ICD Codes: N18.6 - End stage renal disease; Z99.2 - Dependence on renal dialysis Problem Qualifiers (1) HTN (hypertension): Qualified Codes: I10 - Essential (primary) hypertension Jarad Lin MD Feb 24, 2018 08:51
[2018-02-24] MEDS: CALCIUM ACETATE 667 MG CAP PO SCH ×3 (09:00→16:49)
[2018-02-24] MEDS: SODIUM CHLORIDE 0.9% FLUSH 10 ML FLUSH IV FLUSH SCH ×2 (09:00→21:00)
[2018-02-24] MEDS: MULTIVITAMINS/MINERALS THERAPEUTIC TAB PO SCH (09:00)
[2018-02-24] MEDS: COLLAGENASE OINT 30 GM TUBE TOPICAL SCH (09:00)
[2018-02-24] MEDS: ISOSORBIDE MONONITRATE 60 MG CR TAB (IMDUR) PO SCH (09:00)
[2018-02-24] MEDS: DOCUSATE SODIUM 50 MG/SENNA 8.6 MG TAB PO SCH ×2 (09:32→21:00)
[2018-02-24] MEDS: CARVEDILOL 12.5 MG TAB PO SCH ×2 (09:32→21:00)
[2018-02-24] MEDS: LORazepam 1 MG TAB PO PRN (09:32)
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
[2018-02-24] MEDS: HEPARIN SODIUM - SQ 10,000 UNITS/ML VIAL SQ SCH ×2 (09:58→21:24)
[2018-02-24 10:40] LABS: AUTOMATED NEUTROPHIL # 10.4 TH/MM3 (1.8-7.7); BASOPHIL # 0.2 TH/MM3 (0-0.2); BASOPHIL % 1.3 % (0.0-2.0); EOSINOPHIL # 0.1 TH/MM3 (0-0.4); EOSINOPHIL % 0.8 % (0.0-4.0); HEMATOCRIT 39.6 % (39.0-51.0); HEMOGLOBIN 12.8 GM/DL (13.0-17.0); LYMPH % 7.4 % (9.0-44.0); MEAN CELL VOLUME 90.1 FL (80.0-100.0); MEAN CORPUSCULAR HEMOGLOBIN 29.2 PG (27.0-34.0); MEAN CORPUSCULAR HGB CONC 32.4 % (32.0-36.0); MEAN PLATELET VOLUME 8.9 FL (7.0-11.0); MONO % 10.5 % (0.0-8.0); MONOCYTE # 1.4 TH/MM3 (0-0.9); PLATELET COUNT 220 TH/MM3 (150-450); RED CELL DISTRIBUTION WIDTH 14.6 % (11.6-17.2)
--- NOTE | 2018-02-24 10:55 | RADRPT ---
EXAM DATE/TIME: 02/24/2018 10:38 [facility] COMPARISON: No previous studies available for comparison. INDICATIONS : Altered mental status. RADIATION DOSE: 33.51 CTDIvol (mGy) MEDICAL HISTORY : Cardiovascular disease. Hypertension. Renal failure, chronic. Diabetes. SURGICAL HISTORY : None. ENCOUNTER: Initial ACUITY: 1 day PAIN SCALE: 0/10 LOCATION: cranial TECHNIQUE: Multiple contiguous axial images were obtained of the head. Using automated exposure control and adj ustment of the mA and/or kV according to patient size, radiation dose was kept as low as reasonably a chievable to obtain optimal diagnostic quality images. DICOM format image data is available electro nically for review and comparison. FINDINGS: CEREBRUM: The ventricles are normal for age. No evidence of midline shift, mass lesion, or hemorrhage. There i s an area decreased attenuation in the left occipital lobe which extends posteriorly from the occipit al horn of left lateral ventricle. There is no mass effect. No extra-axial fluid collections are seen . POSTERIOR FOSSA: The cerebellum and brainstem are intact. The 4th ventricle is midline. The cerebellopontine angle i s unremarkable. EXTRACRANIAL: The visualized portion of the orbits is intact. SKULL: The calvaria is intact. No evidence of skull fracture. CONCLUSION: 1. Focal area of decreased signal in the left occipital lobe likely representing an area of encephalo malacia. 2. No acute hemorrhage or mass effect. Tio Koehler MD on February 24, 2018 at 10:50 Board Certified Radiologist. This report was verified electronically.
[2018-02-24] MEDS: SODIUM CHLOR 0.9% 1000 ML INJ 1,000 ML IV SCH ×2 (11:05→23:53)
[2018-02-24] MEDS: CEFEPIME INJ 1,000 MG in SODIUM CHLORIDE 0.9% INJ 100 ML IV SCH (11:06)
--- NOTE | 2018-02-24 11:58 | PD.ID.CON ---
History of Present Illness Service ID Consult Requested By Reason for Consult Evaluation and Mment of Possible Sepsis, pneumonia. Primary Care Physician Jarad Lin MD Diagnoses: History of Present Illness Most of the history was by review of medical records. Patient is AMS. is a 57 y/o CM with PMHx of ESRD on Peritoneal dialysis ( in hospital), HTN, ? Peripheral Neuropathy,CAD s/p CABG. Per review of records it appears that a week [employer] patient was reportedly repairing a radiator when he injured his left foot. He denied any fever, chills, night sweats. He was reportedly sent to ED by wound care MD. Upon arrival to the ED patient was found to have a necrotic left 1st and 2nd toe. Podiatry (), (Vascular surgery) have been following the patient along with Nephrology (Nephrology). On arrival, BP 134/100, HR 80, O2 sat 98% on RA, Afebrile. WBC normal. ESR 49. K+ 6.5. Foot X-ray negative for Osteomyelitis. Vascular surgery did not think patient needed any surgery. Per RN patient was to be discharged but discharge held yday due to Altered Mental Status. saw patient this am and CT head was obtained which showed no new stroke or bleed just chronic encephalomalacia. EEG was ordered and is being changed to STAT by me. Patient has continued to receive PD in hospital and last session was last night. ID consulted for Evaluation and M'ment of Possible Sepsis, Pneumonia. Review of Systems ROS Limitations: Altered Mental Status, Poor Historian Past Family Social History Allergies: Coded Allergies: gabapentin (Unverified Allergy, Mild, Itching, 02/17/18) Past Medical History ESRD on PD HTN Past Surgical History CABG, Cholecystectomy Reported Medications Reported Meds & Active Scripts Active Ambien (Zolpidem Tartrate) 10 Mg Tab 10 Mg PO HS PRN Lorazepam 1 Mg Tab 1 Mg PO BID PRN Reported Calcium Acetate (Calcium Acetate (Phosphate Bin) 667 Mg Cap 1 Tab PO TID Isosorbide Mononitrate ER (Isosorbide Mononitrate) 60 Mg Tab 60 Mg PO DAILY Aspirin 81 Mg Chew 81 Mg CHEW DAILY Coreg (Carvedilol) 6.25 Mg Tab 6.25 Mg PO BID Thera-M (Multiple Vitamins W/ Minerals) 1 Tab 1 Tab PO DAILT Active Ordered Medications Current Medications Medications (Trade) Dose Ordered Sig/Cesar Route Start Time Stop Time Status Last Admin Cefepime HCl 1000 mg/Sodium Chloride 100 ml @ 200 mls/hr DAILY IV 02/18/18 09:00 02/24/18 11:06 (NS Flush) 2 ml UNSCH PRN IV FLUSH 02/17/18 20:15 (NS Flush) 2 ml BID IV FLUSH 02/17/18 21:00 02/24/18 09:00 (Zofran Inj) 4 mg Q6H PRN IVP 02/17/18 20:15 (Heparin Inj) 5,000 units Q12H SQ 02/18/18 09:00 02/24/18 09:58 (Tylenol) 650 mg Q6H PRN PO 02/17/18 20:15 02/18/18 00:37 ([place] 5-325 Mg) 1 tab Q4H PRN PO 02/17/18 20:15 (Morphine Inj) 2 mg Q3H PRN IV PUSH 02/17/18 20:15 (Jacqui-Colace) 1 tab BID PO 02/17/18 21:00 02/24/18 09:32 (Milk Of Magnesia Liq) 30 ml Q12H PRN PO 02/17/18 20:15 (Senokot) 17.2 mg Q12H PRN PO 02/17/18 20:15 (Dulcolax Supp) 10 mg DAILY PRN RECTAL 02/17/18 20:15 (Lactulose Liq) 30 ml DAILY PRN PO 02/17/18 20:15 (Imdur) 60 mg DAILY PO 02/18/18 09:00 02/23/18 09:40 (Ativan) 1 mg BID PRN PO 02/17/18 23:15 02/24/18 09:32 (Theragran M Tab) 1 tab DAILY PO 02/18/18 09:00 02/23/18 09:40 (Ambien) 10 mg HS PRN PO 02/17/18 23:15 02/18/18 21:58 (D50w (Vial) Inj) 50 ml UNSCH PRN IV PUSH 02/18/18 00:15 (Glucagon Inj) 1 mg UNSCH PRN OTHER 02/18/18 00:15 (NovoLOG SUPPLEMENTAL SCALE) 1 ACHS SLIDING SCALE SQ 02/18/18 08:00 (Heparin Inj) 1,000 units WITH DIALYSIS PRN XX 02/18/18 11:00 (NS Flush) 10 ml UNSCH PRN IV FLUSH 02/18/18 11:00 (Santyl Oint) 1 applic DAILY TOPICAL 02/19/18 09:00 02/24/18 09:00 (Phoslo) 2,001 mg TID PO 02/19/18 18:00 02/23/18 16:05 (Catapres) 0.1 mg Q6H PRN PO 02/19/18 17:15 02/23/18 11:34 (Coreg) 12.5 mg BID PO 02/21/18 21:00 02/24/18 09:32 Sodium Chloride 1,000 ml @ 84 mls/hr [id number] IV 02/24/18 10:00 02/24/18 11:05 Family History could not be obtained. Social History could not be obtained. Physical Exam Vital Signs Vital Signs Date Time Temp Pulse Resp B/P (MAP) Pulse Ox O2 Delivery O2 Flow Rate FiO2 02/24/18 08:00 98.4 100 17 150/74 (99) 95 02/24/18 00:00 99.0 101 20 125/92 (103) 94 02/23/18 20:00 97.8 93 18 163/76 (105) 95 02/23/18 16:00 97.7 88 19 187/88 (121) 96 02/23/18 12:00 97.3 85 19 185/93 (123) 95 Physical Exam GENERAL: Chronically ill appearing patient, in no Cardiopulm distress. SKIN: No rashes, ecchymoses or lesions. Cool and dry. HEAD: Atraumatic. Normocephalic. No temporal or scalp tenderness. EYES: Pupils equal round and reactive. No scleral icterus. No injection or drainage. ENT: Secretions pooling in oral cavity. NECK: Trachea midline. Supple, nontender, no meningeal signs. CARDIOVASCULAR: HS audible. Midline CABG scar intact. RESPIRATORY: Bilateral wheezing and basilar creps. Decreased AE bilaterally. GASTROINTESTINAL: Abdomen soft, PD cath site ok but tender. Abdomen tenderness, with some guarding, rebound tenderness but no rigidity. MUSCULOSKELETAL: Left great toe with necrotic area and surrounding erythema. NEUROLOGICAL: Difficult to arouse with verbal commands. Had to be woken up by painful stimuli. No obvious focal deficit. Jerky movts of upper and lower extremities. Speech muffled non audible. Psych could not be assessed IV line sites with no e.o infection. Laboratory Laboratory Tests Test 02/23/18 20:16 02/24/18 07:28 02/24/18 09:50 02/24/18 10:20 White Blood Count 9.2 13.0 Red Blood Count 4.33 4.40 Hemoglobin 12.7 12.8 Hematocrit 39.1 39.6 Mean Corpuscular Volume 90.2 90.1 Mean Corpuscular Hemoglobin 29.4 29.2 Mean Corpuscular Hemoglobin Concent 32.6 32.4 Red Cell Distribution Width 14.7 14.6 Platelet Count 205 220 Mean Platelet Volume 8.6 8.9 Neutrophils (%) (Auto) 76.8 80.0 Lymphocytes (%) (Auto) 8.7 7.4 Monocytes (%) (Auto) 10.2 10.5 Eosinophils (%) (Auto) 3.0 0.8 Basophils (%) (Auto) 1.3 1.3 Neutrophils # (Auto) 7.1 10.4 Lymphocytes # (Auto) 0.8 1.0 Monocytes # (Auto) 0.9 1.4 Eosinophils # (Auto) 0.3 0.1 Basophils # (Auto) 0.1 0.2 CBC Comment DIFF FINAL DIFF FINAL Differential Comment Blood Urea Nitrogen 85 78 Creatinine 6.48 6.25 Random Glucose 182 106 Total Protein 7.8 Albumin 1.8 Calcium Level 8.5 8.4 Alkaline Phosphatase 71 Aspartate Amino Transf (AST/SGOT) 56 Alanine Aminotransferase (ALT/SGPT) 29 Total Bilirubin 0.4 Sodium Level 127 128 Potassium Level 4.9 4.8 Chloride Level 92 94 Carbon Dioxide Level 23.0 24.0 Anion Gap 12 10 Estimat Glomerular Filtration Rate 9 9 Ammonia 19 Blood Gas Puncture Site RT RADIAL Blood Gas Patient Temperature 98.6 Blood Gas HCO3 24 Blood Gas Base Excess 0.2 Blood Gas Oxygen Saturation 89 Arterial Blood pH 7.45 Arterial Blood Partial Pressure CO2 35 Arterial Blood Partial Pressure O2 62 Arterial Blood Oxygen Content 16.4 Arterial Blood Carboxyhemoglobin 0.3 Arterial Blood Methemoglobin 0.5 Blood Gas Hemoglobin 13.0 Oxygen Delivery Device ROOM AIR Blood Gas Inspired Oxygen 21 Date/Time Source Procedure Growth Status 02/23/18 20:16 Blood Arterial Line Aerobic Blood Culture - Preliminary NO GROWTH IN 1 DAY Resulted 02/23/18 20:16 Blood Arterial Line Anaerobic Blood Culture - Preliminary NO GROWTH IN 1 DAY Resulted Result Diagram: 02/24/18 0950 02/24/18 0728 Imaging Last Impressions Head CT 02/24/18 0000 Signed Impressions: Service Date/Time: Saturday, February 24, 2018 10:38 - CONCLUSION: 1. Focal area of decreased signal in the left occipital lobe likely representing an area of encephalomalacia. 2. No acute hemorrhage or mass effect. Tio Koehler MD Aorta w/Runoff CTA 02/21/18 0000 Signed Impressions: Service Date/Time: Wednesday, February 21, 2018 12:39 - CONCLUSION: 1. Diffuse calcified plaque with patent inflow and outflow bilaterally. 2. Severe calcification of the trifurcation vessels bilaterally significantly limits their is evaluation. High-grade stenoses seen involving articular artery and posterior tibial artery on the left. On the right the trifurcation vessels are felt grossly patent. 3. Small left effusion with associated passive atelectasis. Elijah James Jr., MD Foot X-Ray 02/17/18 0000 Signed Impressions: Service Date/Time: Saturday, February 17, 2018 16:46 - CONCLUSION: Negative fast myelitis Gene Garcia MD FACR Assessment and Plan Assessment and Plan Possible Sepsis. Left great toe and 2nd toe gangrene possible cellulitis. PD cath related peritonitis possible. Possible Aspiration Pneumonia. acute metabolic encephalopathy: ? seizures, ? uremia, sepsis. ESRD on PD. HTN CAD s/p CABG. Recs Continue Cefepime 1 gm IV daily. vanco 1 gm IV x 1 dose then further dosing per ID MD. Consult facetor stat (worsening AMS may need intubation). Case dw [facility] Dr.Nemani Borrego who saw patient on 7th floor. CXR stat ordered and reviewed: left side infiltrate Xray KUB abdomen r/o free gas in view of rebound tenderness. Lactic acid stat. Follow peritoneal fluid studies. Stat EEG Neurology consult. CT head reviewed with [facility] no acute bleed. Follow cultures Follow clinically. Critical thinking and decision making. Transfer to ICU orders placed, coordinated with [facility] . jessica RN No family in room. covering for me this weekend. Nichole Almonte MD Feb 24, 2018 11:58
--- NOTE | 2018-02-24 12:40 | RADRPT ---
EXAM DATE/TIME: 02/24/2018 12:03 [facility] COMPARISON: No previous studies available for comparison. INDICATIONS : Short of breath, evaluate for pneumonia MEDICAL HISTORY : Cardiovascular disease. Renal failure, chronic. AMS, diabetic SURGICAL HISTORY : partial foot amputation ENCOUNTER: Subsequent ACUITY: 2 days PAIN SCORE: Non-responsive. LOCATION: Bilateral chest FINDINGS: There is cardiomegaly with bilateral mostly basilar airspace disease, somewhat patchy on the left. Sm all effusions. Previous sternotomy. CONCLUSION: 1. Cardiomegaly with mild edema pattern. More focal consolidation at the left lung base could represe nt a superimposed bronchopneumonia. Small effusions. Ian Noyola MD on February 24, 2018 at 12:36 Board Certified Radiologist. This report was verified electronically.
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
[2018-02-24] MEDS ORDERED: VANCOMYCIN INJ 1,250 MG in SODIUM CHLORID 0.9% 500 ML INJ 500 ML IV ONE (13:00)
[2018-02-24] MEDS ORDERED: VANCOMYCIN INJ 1,250 MG in SODIUM CHLOR 0.9% 250 ML INJ 250 ML IV ONE (13:00)
[2018-02-24] MEDS ORDERED: DIATRIZOATE MEGLUM/DIATRIZOATE SOD 9 ML CUP PO ONE (14:00)
--- NOTE | 2018-02-24 14:44 | MG ---
cc: Shon Don MD, PhD DATE OF STUDY: 02/24/2018 TEST NUMBER: [id number] TECHNIQUE: A 17-channel EEG. DESCRIPTION: The background rhythm is generally slow and the delta frequency of 3-4 Hz, amplitude is 30-50 microvolts. Prominent triphasic waves are identified. There are no epileptiform discharges seen. No lateralizing features seen. INTERPRETATION: Abnormal study, consistent with a severe metabolic encephalopathy. No evidence for seizure activity is identified. Shon Don MD, PhD RADHA/HUGO , 02:24 PM , 02:43 PM
[2018-02-24] MEDS: MORPHINE SULFATE 2 MG/ML SYRINGE IV PUSH PRN ×3 (14:47→21:25)
--- NOTE | 2018-02-24 16:15 | PD.CONS ---
HPI Service Critical Care Medicine Consult Requested By Dr. Nichole Almonte Reason for Consult Worsening encephalopathy, concern for airway protection and aspiration with possible seizures Primary Care Physician Jarad Lin MD History of Present Illness is a 57 y/o CM with PMHx of ESRD on Peritoneal dialysis ( in hospital), HTN, ? Peripheral Neuropathy,CAD s/p CABG. Per review of records it appears that a week [employer] patient was reportedly repairing a radiator when he injured his left foot. He denied any fever, chills, night sweats. He was reportedly sent to ED by wound care MD. Upon arrival to the ED patient was found to have a necrotic left 1st and 2nd toe. Podiatry (), (Vascular surgery) have been following the patient along with Nephrology (Nephrology). On arrival, BP 134/100, HR 80, O2 sat 98% on RA, Afebrile. WBC normal. ESR 49. K+ 6.5. Foot X-ray negative for Osteomyelitis. Vascular surgery did not think patient needed any surgery. Per RN patient was to be discharged but discharge held yday due to Altered Mental Status. Patient developed altered mental status overnight. saw patient this am and CT head was obtained which showed no new stroke or bleed just chronic encephalomalacia. ID was consulted by Dr. Lin in view of concern for his worsening sepsis causing altered mental status. Patient was noted to have some twitching movements and tremors on ID evaluation and critical care consult was requested in view of concern regarding airway protection and possible etiology of seizures and concern regarding aspiration. I evaluated the patient on the floor. At that time he was completely disoriented, awake with twitching and tremors which appeared to be generalized. He was otherwise maintaining his O2 sats and was awake however not following commands. Stat EEG was started after my evaluation. History was obtained by reviewing records and discussion with nursing staff as well as ID physician. Patient to be transferred to ICU following EEG. Appeared to be protecting her airway at the time of my evaluation. Review of Systems ROS Limitations: Altered Mental Status, Poor Historian Past Family Social History Allergies: Coded Allergies: gabapentin (Unverified Allergy, Mild, Itching, 02/17/18) Past Medical History ESRD on PD HTN Past Surgical History CABG, Cholecystectomy Reported Medications Reported Meds & Active Scripts Active Ambien (Zolpidem Tartrate) 10 Mg Tab 10 Mg PO HS PRN Lorazepam 1 Mg Tab 1 Mg PO BID PRN Reported Calcium Acetate (Calcium Acetate (Phosphate Bin) 667 Mg Cap 1 Tab PO TID Isosorbide Mononitrate ER (Isosorbide Mononitrate) 60 Mg Tab 60 Mg PO DAILY Aspirin 81 Mg Chew 81 Mg CHEW DAILY Coreg (Carvedilol) 6.25 Mg Tab 6.25 Mg PO BID Thera-M (Multiple Vitamins W/ Minerals) 1 Tab 1 Tab PO DAILT Active Ordered Medications Current Medications Medications (Trade) Dose Ordered Sig/Cesar Route Start Time Stop Time Status Last Admin Cefepime HCl 1000 mg/Sodium Chloride 100 ml @ 200 mls/hr DAILY IV 02/18/18 09:00 02/24/18 11:06 (NS Flush) 2 ml UNSCH PRN IV FLUSH 02/17/18 20:15 (NS Flush) 2 ml BID IV FLUSH 02/17/18 21:00 02/24/18 09:00 (Zofran Inj) 4 mg Q6H PRN IVP 02/17/18 20:15 (Heparin Inj) 5,000 units Q12H SQ 02/18/18 09:00 02/24/18 09:58 (Tylenol) 650 mg Q6H PRN PO 02/17/18 20:15 02/18/18 00:37 (Slaughter 5-325 Mg) 1 tab Q4H PRN PO 02/17/18 20:15 (Morphine Inj) 2 mg Q3H PRN IV PUSH 02/17/18 20:15 (Jacqui-Colace) 1 tab BID PO 02/17/18 21:00 02/24/18 09:32 (Milk Of Magnesia Liq) 30 ml Q12H PRN PO 02/17/18 20:15 (Senokot) 17.2 mg Q12H PRN PO 02/17/18 20:15 (Dulcolax Supp) 10 mg DAILY PRN RECTAL 02/17/18 20:15 (Lactulose Liq) 30 ml DAILY PRN PO 02/17/18 20:15 (Imdur) 60 mg DAILY PO 02/18/18 09:00 02/23/18 09:40 (Ativan) 1 mg BID PRN PO 02/17/18 23:15 02/24/18 09:32 (Theragran M Tab) 1 tab DAILY PO 02/18/18 09:00 02/23/18 09:40 (Ambien) 10 mg HS PRN PO 02/17/18 23:15 02/18/18 21:58 (D50w (Vial) Inj) 50 ml UNSCH PRN IV PUSH 02/18/18 00:15 (Glucagon Inj) 1 mg UNSCH PRN OTHER 02/18/18 00:15 (NovoLOG SUPPLEMENTAL SCALE) 1 ACHS SLIDING SCALE SQ 02/18/18 08:00 (Heparin Inj) 1,000 units WITH DIALYSIS PRN XX 02/18/18 11:00 (NS Flush) 10 ml UNSCH PRN IV FLUSH 02/18/18 11:00 (Santyl Oint) 1 applic DAILY TOPICAL 02/19/18 09:00 02/24/18 09:00 (Phoslo) 2,001 mg TID PO 02/19/18 18:00 02/23/18 16:05 (Catapres) 0.1 mg Q6H PRN PO 02/19/18 17:15 02/23/18 11:34 (Coreg) 12.5 mg BID PO 02/21/18 21:00 02/24/18 09:32 Sodium Chloride 1,000 ml @ 84 mls/hr [id number] IV 02/24/18 10:00 02/24/18 11:05 Family History could not be obtained. Social History could not be obtained. Physical Exam Vital Signs Vital Signs Date Time Temp Pulse Resp B/P (MAP) Pulse Ox O2 Delivery O2 Flow Rate FiO2 02/24/18 14:00 89 02/24/18 14:00 98 Nasal Cannula 2.00 02/24/18 14:00 98.5 90 17 179/75 (109) 98 02/24/18 12:00 99.2 97 16 182/79 (113) 95 02/24/18 08:00 98.4 100 17 150/74 (99) 95 02/24/18 00:00 99.0 101 20 125/92 (103) 94 02/23/18 20:00 97.8 93 18 163/76 (105) 95 02/23/18 16:00 97.7 88 19 187/88 (121) 96 Physical Exam HEENT/Neuro: Pallor present, no icterus, tongue moist, ARLIN, awake, disoriented, unintelligible speech. Appears to have twitching movements all over with jerking movements involving extremities, not following commands. Neck: No JVD Chest/pulmonary: Good air entry bilaterally though decreased at bases, scattered rhonchi, no wheezing or crackles Cardiovascular: Sternotomy scar noted. S1-S2 regular no gallop or murmur GI/abdomen: Soft, vague tenderness, bowel sounds sluggish. PD catheter in place Extremities: . 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 Left foot with gangrene of the great toe with surrounding erythema Laboratory Laboratory Tests Test 02/23/18 20:16 02/24/18 07:28 02/24/18 09:50 02/24/18 10:20 White Blood Count 9.2 13.0 Red Blood Count 4.33 4.40 Hemoglobin 12.7 12.8 Hematocrit 39.1 39.6 Mean Corpuscular Volume 90.2 90.1 Mean Corpuscular Hemoglobin 29.4 29.2 Mean Corpuscular Hemoglobin Concent 32.6 32.4 Red Cell Distribution Width 14.7 14.6 Platelet Count 205 220 Mean Platelet Volume 8.6 8.9 Neutrophils (%) (Auto) 76.8 80.0 Lymphocytes (%) (Auto) 8.7 7.4 Monocytes (%) (Auto) 10.2 10.5 Eosinophils (%) (Auto) 3.0 0.8 Basophils (%) (Auto) 1.3 1.3 Neutrophils # (Auto) 7.1 10.4 Lymphocytes # (Auto) 0.8 1.0 Monocytes # (Auto) 0.9 1.4 Eosinophils # (Auto) 0.3 0.1 Basophils # (Auto) 0.1 0.2 CBC Comment DIFF FINAL DIFF FINAL Differential Comment Blood Urea Nitrogen 85 78 Creatinine 6.48 6.25 Random Glucose 182 106 Total Protein 7.8 Albumin 1.8 Calcium Level 8.5 8.4 Alkaline Phosphatase 71 Aspartate Amino Transf (AST/SGOT) 56 Alanine Aminotransferase (ALT/SGPT) 29 Total Bilirubin 0.4 Sodium Level 127 128 Potassium Level 4.9 4.8 Chloride Level 92 94 Carbon Dioxide Level 23.0 24.0 Anion Gap 12 10 Estimat Glomerular Filtration Rate 9 9 Ammonia 19 Blood Gas Puncture Site RT RADIAL Blood Gas Patient Temperature 98.6 Blood Gas HCO3 24 Blood Gas Base Excess 0.2 Blood Gas Oxygen Saturation 89 Arterial Blood pH 7.45 Arterial Blood Partial Pressure CO2 35 Arterial Blood Partial Pressure O2 62 Arterial Blood Oxygen Content 16.4 Arterial Blood Carboxyhemoglobin 0.3 Arterial Blood Methemoglobin 0.5 Blood Gas Hemoglobin 13.0 Oxygen Delivery Device ROOM AIR Blood Gas Inspired Oxygen 21 Date/Time Source Procedure Growth Status 02/23/18 20:16 Blood Arterial Line Aerobic Blood Culture - Preliminary NO GROWTH IN 1 DAY Resulted 02/23/18 20:16 Blood Arterial Line Anaerobic Blood Culture - Preliminary NO GROWTH IN 1 DAY Resulted Result Diagram: 02/24/18 0950 02/24/18 0728 Imaging Last Impressions Head CT 02/24/18 0000 Signed Impressions: Service Date/Time: Saturday, February 24, 2018 10:38 - CONCLUSION: 1. Focal area of decreased signal in the left occipital lobe likely representing an area of encephalomalacia. 2. No acute hemorrhage or mass effect. Tio Koehler MD Chest X-Ray 02/24/18 0000 Signed Impressions: Service Date/Time: Saturday, February 24, 2018 12:03 - CONCLUSION: 1. Cardiomegaly with mild edema pattern. More focal consolidation at the left lung base could represent a superimposed bronchopneumonia. Small effusions. Ian Noyola MD Abdomen X-Ray 02/24/18 0000 Signed Impressions: Service Date/Time: Saturday, February 24, 2018 12:07 - CONCLUSION: 1. No acute findings within the abdomen. Specifically no free air identified. Ian Noyola MD Aorta w/Runoff CTA 02/21/18 0000 Signed Impressions: Service Date/Time: Wednesday, February 21, 2018 12:39 - CONCLUSION: 1. Diffuse calcified plaque with patent inflow and outflow bilaterally. 2. Severe calcification of the trifurcation vessels bilaterally significantly limits their is evaluation. High-grade stenoses seen involving articular artery and posterior tibial artery on the left. On the right the trifurcation vessels are felt grossly patent. 3. Small left effusion with associated passive atelectasis. Elijah James Jr., MD Foot X-Ray 02/17/18 0000 Signed Impressions: Service Date/Time: Saturday, February 17, 2018 16:46 - CONCLUSION: Negative fast myelitis Gene Garcia MD FACR Assessment and Plan Assessment and Plan 57-year-old male with Encephalopathy: ? seizures, ? uremia, sepsis Tremors/involuntary movement Suspected sepsis Cellulitis around left great toe Possible aspiration pneumonia Dry Gangrene: - s/p burn to left foot w/ necrotic wound to left great toe, blisters to left 2nd toe and dorsum of left foot. ESRD on peritoneal dialysis PVD CAD status post previous CABG Hypertension Plan: Neuro: Head CT without any evidence of bleed. Encephalomalacia appears to be old. Stat EEG with no evidence of seizure activity per discussion with the technical agronomist and appears to be abnormal secondary to metabolic encephalopathy. Neurology Dr. Don consulted for further evaluation of encephalopathy. Avoid sedatives and narcotics if possible. Cardiovascular: Continue antihypertensives and cardiac medications. Pulmonary: Supplemental O2 as needed. Bronchodilators as needed. Currently protecting airway. If neurologic status worsens, may require endotracheal intubation. GI/liver: Keep n.p.o. till improvement in neurologic status and then advance to renal diet as tolerated. Renal/: On peritoneal dialysis, being followed by nephrology-Dr. Franks. ID: Follow-up cultures. ID consult requested by Dr. Lin. Antibiotics per ID. Foot X-ray negative for osteomyelitis. Dr. Magdaleno from podiatry following for gangrenous left great toe. Heme: Follow CBC Endocrine: SSI for glycemic control as needed. Prophylaxis: Subcutaneous heparin for DVT prophylaxis. D/W ID, D/W floor and ICU charge earlier. Critical care will continue to follow. Elmo Almonte MD Feb 24, 2018 16:15
--- NOTE | 2018-02-24 20:34 | MB ---
cc: Shon Don MD, PhD DATE: 02/24/2018 REASON FOR CONSULTATION: Encephalopathy. HISTORY OF PRESENT ILLNESS: Mr. Nugent is a 57-year-old man with end-stage renal disease on peritoneal dialysis, coronary artery disease, who developed increasing confusion and disorientation as well as diffuse twitching activity. This happened fairly abruptly overnight. PAST MEDICAL HISTORY: End-stage renal disease on dialysis, hypertension, CABG, cholecystectomy. MEDICATIONS: Carvedilol, PhosLo, Catapres, ____, subcutaneous heparin, cefepime, Imdur, multivitamin, Ambien, Tylenol, lactulose. NEUROLOGIC EXAMINATION: VITAL SIGNS: Blood pressure is 182/79, pulse is 97, respirations 16, temperature 98.6. HIGH CORTICAL FUNCTION: He is lethargic, but arousable. Disoriented to date and place. He is very confused, has poor memory. Cranial nerves are intact. MOTOR EXAM: He has diffuse myoclonus, which is stimulus sensitive. He has no focal deficits. Reflexes are symmetric. IMAGING: CT scan of the brain, low signal left occipital area, probably chronic encephalomalacia. His EEG shows diffuse slowing consistent with encephalopathy. No evidence of any epileptiform discharges. IMPRESSION: Probable metabolic encephalopathy. RECOMMENDATIONS: I would like to proceed with a brain MRI without contrast to be sure there is no stroke given the acute nature of the event. Shon Don MD, PhD RADHA/rt , 08:07 PM , 08:33 PM
[2018-02-24] MEDS: hydrALAZINE HCL 20 MG/ML VIAL IV PUSH PRN (21:24)
[2018-02-24 22:09] LABS: PERITONEAL BASO 1 %; PERITONEAL EOS 2 %; PERITONEAL HISTIOCYTES 5 %; PERITONEAL LYMPHS 18 %; PERITONEAL MESOTHELIAL 3 %; PERITONEAL MONOS 69 %; PERITONEAL POLYS(SEGS) 2 %; PERITONEAL RBC 102 /MM3 (0-0)
[2018-02-24] MEDS ORDERED: CHLORHEXIDINE GLUCONATE 2 % 1 PACK (2 CLOTHS)(extra cloths) TOPICAL PRN (22:15)
[2018-02-24] MEDS: cloNIDine HCL 0.1 MG TAB PO PRN (22:58)
[2018-02-24] MEDS: LABETALOL HCL 100 MG/20 ML VIAL IV PUSH PRN (22:58)
[2018-02-25] VITALS (31 sets, daily range): BP systolic 99–198; BP diastolic 55–81; PULSE 78–128; RESP 9–25; TEMP 98.1–98.9; O2SAT 95–100
[2018-02-25] MEDS ORDERED: LORazepam 2 MG/ML VIAL IV PUSH ONE (00:30)
[2018-02-25] MEDS: ONDANSETRON HCL 4 MG/2 ML VIAL IVP PRN (00:33)
[2018-02-25] MEDS: niCARdipine INJ 25 MG in SODIUM CHLOR 0.9% 250 ML INJ 240 ML IV PRN ×2 (00:46→05:13)
[2018-02-25] MEDS: CHLORHEXIDINE GLUCONATE 2 % 1 PACK (2 CLOTHS)(taper/protocol) TOPICAL SCH (04:00)
[2018-02-25] MEDS ORDERED: DIATRIZOATE MEGLUM/DIATRIZOATE SOD 9 ML CUP PO ONE (07:45)
[2018-02-25] MEDS: INSULIN ASPART SUPPLEMENTAL SCALE SQ SCH ×4 (07:59→20:31)
[2018-02-25] MEDS: CALCIUM ACETATE 667 MG CAP PO SCH ×3 (08:01→19:07)
[2018-02-25] MEDS: ISOSORBIDE MONONITRATE 60 MG CR TAB (IMDUR) PO SCH (08:01)
[2018-02-25] MEDS: MULTIVITAMINS/MINERALS THERAPEUTIC TAB PO SCH (08:01)
[2018-02-25] MEDS: CARVEDILOL 12.5 MG TAB PO SCH ×2 (08:01→20:13)
[2018-02-25] MEDS: HEPARIN SODIUM - SQ 10,000 UNITS/ML VIAL SQ SCH ×2 (08:01→20:13)
[2018-02-25] MEDS: SODIUM CHLORIDE 0.9% FLUSH 10 ML FLUSH IV FLUSH SCH ×2 (08:01→20:32)
[2018-02-25] MEDS: CEFEPIME INJ 1,000 MG in SODIUM CHLORIDE 0.9% INJ 100 ML IV SCH (08:01)
[2018-02-25] MEDS: DOCUSATE SODIUM 50 MG/SENNA 8.6 MG TAB PO SCH ×2 (08:01→20:13)
[2018-02-25] MEDS: SODIUM CHLOR 0.9% 1000 ML INJ 1,000 ML IV SCH ×2 (08:02→21:45)
[2018-02-25] MEDS ORDERED: IOHEXOL 350 MG/ML 10 ML VIAL (for RAD DIAG) IVCONTRAST ONE (11:00)
--- NOTE | 2018-02-25 11:02 | RADRPT ---
EXAM DATE/TIME: 02/25/2018 10:16 [facility] COMPARISON: ABDOMEN FLAT & UPRIGHT, February 24, 2018, 12:07. INDICATIONS : Diffuse abdomen pain today. IV CONTRAST: 92 cc Omnipaque 350 (iohexol) IV ORAL CONTRAST: No oral contrast ingested. RADIATION DOSE: 16.87 CTDIvol (mGy) MEDICAL HISTORY : Hypertension. renal failure, diabetes SURGICAL HISTORY : Cholecystectomy. ENCOUNTER: Initial ACUITY: 1 day PAIN SCALE: Non-responsive LOCATION: Bilateral abdomen TECHNIQUE: Volumetric scanning of the abdomen and pelvis was performed. Using automated exposure control and ad justment of the mA and/or kV according to patient size, radiation dose was kept as low as reasonably achievable to obtain optimal diagnostic quality images. DICOM format image data is available electro nically for review and comparison. FINDINGS: LOWER LUNGS: There are bilateral pleural effusions left greater than right. There is consolidation in both posteri or lung bases left greater than right. The patient status post median sternotomy and there is evidenc e of cardiomegaly. LIVER: Homogeneous density without lesion. There is no dilation of the biliary tree. Status post cholecyste ctomy. SPLEEN: Normal size without lesion. PANCREAS: Within normal limits. KIDNEYS: Normal in size and shape. There is no mass, stone or hydronephrosis. ADRENAL GLANDS: Within normal limits. VASCULAR: Extensive atherosclerotic changes are noted with diffuse calcification throughout the arterial system . There is no aortic aneurysm. BOWEL/MESENTERY: A peritoneal dialysis catheter is noted coiled in the pelvis. There is a small amount of ascitic flui d in right paracolic gutter and pelvis. The stomach, small bowel, and colon demonstrate no acute abno rmality. There is no free intraperitoneal air or fluid. ABDOMINAL WALL: Within normal limits. RETROPERITONEUM: There is no lymphadenopathy. BLADDER: No wall thickening or mass. REPRODUCTIVE: Within normal limits. INGUINAL: There is no lymphadenopathy or hernia. MUSCULOSKELETAL: Within normal limits for patient age. CONCLUSION: 1. Peritoneal dialysis catheter in place with small amount of ascitic fluid. 2. Bilateral pleural effusions and consolidation in the posterior lower lobes. Please see chest CT fo r further details. 3. Unremarkable bowel gas pattern. Tio Koehler MD on February 25, 2018 at 10:55 Board Certified Radiologist. This report was verified electronically.
--- NOTE | 2018-02-25 11:07 | RADRPT ---
EXAM DATE/TIME: 02/25/2018 10:36 [facility] COMPARISON: CT BRAIN W/O CONTRAST, February 24, 2018, 10:38. INDICATIONS : Patient with altered mental status and abnormal head CT demonstrating an area of apparent encephaloma lacia in the left occipital lobe. The patient is being evaluated for acute cerebral vascular accident . MEDICAL HISTORY : Cardiovascular disease Hypertension. Renal disease, end stage. SURGICAL HISTORY : CABG Cholecystectomy. ENCOUNTER: Initial ACUITY: 1 day PAIN SCORE: 0/10 LOCATION: cranial TECHNIQUE: Multiplanar, multisequence MRI of the brain was performed without contrast. FINDINGS: CEREBRUM: The ventricles are normal for age. There is an area of apparent gliosis involving the left parietal l obe. This corresponds to the CT abnormality. No evidence of midline shift, mass lesion, hemorrhage or acute infarction. No extraaxial fluid collections are seen. The pituitary gland and suprasellar ci rios are normal in configuration. WHITE MATTER: On the flair weighted images there is increased signal in periventricular white matter. POSTERIOR FOSSA: The cerebellum and brainstem are intact. The 4th ventricle is midline. The cerebellopontine angle is unremarkable. The cerebellar tonsils are normal in position. DIFFUSION IMAGING: No focal areas of restricted diffusion are seen. No evidence of acute infarction. EXTRACRANIAL: The visualized portions of the orbits and paranasal sinuses are unremarkable. CONCLUSION: 1. No acute hemorrhage, mass or infarction. 2. Area of apparent gliosis in the left occipital lobe with no restricted diffusion. Tio Koehler MD on February 25, 2018 at 11:01 Board Certified Radiologist. This report was verified electronically.
--- NOTE | 2018-02-25 11:10 | RADRPT ---
EXAM DATE/TIME: 02/25/2018 10:16 [facility] COMPARISON: CHEST SINGLE AP, February 24, 2018, 12:03. INDICATIONS : Shortness of breath. Abnormal chest x-ray exam demonstrating more focal consolidation in the left perla g base which could represent bronchopneumonia. IV CONTRAST: 92 cc Omnipaque 350 (iohexol) IV ; Cumulative dose for multiple exams. RADIATION DOSE: 16.87 CTDIvol (mGy) ; Combined studies MEDICAL HISTORY : Hypertension. renal failure, diabetes SURGICAL HISTORY : Cholecystectomy. ENCOUNTER: Initial ACUITY: 1 day PAIN SCALE: Non-responsive LOCATION: Bilateral chest TECHNIQUE: Volumetric scanning of the chest was performed. Using automated exposure control and adjustment of t he mA and/or kV according to patient size, radiation dose was kept as low as reasonably achievable to obtain optimal diagnostic quality images. DICOM format image data is available electronically for review and comparison. Follow-up recommendations for detected pulmonary nodules are based at a minimum on nodule size and pa tient risk factors according to Fleischner Society Guidelines. FINDINGS: LUNGS: There is dense consolidation left lower lobe with air bronchograms. There is milder consolidation in the posterior right lower lobe. There is no focal mass. PLEURA: There are bilateral pleural effusions. This is moderate in size on the left and small on the right. MEDIASTINUM: The patient is status post median sternotomy. There are postoperative changes and mild cardiomegaly. Coronary artery calcifications are present. AXILLAE: Within normal limits. No lymphadenopathy. SKELETAL: Within normal limits for patient age. MISCELLANEOUS: The visualized upper abdominal organs demonstrate no acute abnormality. CONCLUSION: 1. Consolidation in both lower lobes left greater than right. This could represent pneumonia. 2. Bilateral pleural effusions left greater than right. 3. Status post median sternotomy with cardiomegaly and postsurgical change. Tio Koehler MD on February 25, 2018 at 11:06 Board Certified Radiologist. This report was verified electronically.
--- NOTE | 2018-02-25 13:04 | HHI.NPPN ---
Subjective General Problems: Anemia, Heart Disease Renal Failure: End Stage Renal Disease History of Present Illness Patient is lethargic and confused. Additional Remarks Patient is more awake, remain confused, and not following all commands. Review of Systems General Constitutional: Chills Objective Data Data 02/25/18 02/26/18 19:00 07:00 Output Total 729 ml Balance -729 ml Peritoneal Fluid 729 ml Vital Signs Date Time Temp Pulse Resp B/P (MAP) Pulse Ox O2 Delivery O2 Flow Rate FiO2 02/25/18 12:00 84 02/25/18 12:00 98 Nasal Cannula 2.00 02/25/18 11:00 84 02/25/18 11:00 84 16 100 02/25/18 10:00 82 02/25/18 10:00 82 15 143/63 (89) 99 02/25/18 09:45 81 12 144/62 (89) 98 02/25/18 09:45 81 02/25/18 09:31 84 15 138/60 (86) 97 02/25/18 09:31 84 02/25/18 09:15 82 15 141/62 (88) 95 02/25/18 09:15 82 02/25/18 09:00 80 13 131/59 (83) 97 02/25/18 09:00 80 02/25/18 08:45 78 14 123/57 (79) 98 02/25/18 08:45 78 02/25/18 08:30 80 02/25/18 08:30 80 13 128/60 (82) 98 02/25/18 08:15 82 02/25/18 08:15 82 12 125/60 (81) 97 02/25/18 08:14 97 Nasal Cannula 2.00 02/25/18 08:00 98.5 81 19 123/59 (80) 96 02/25/18 08:00 98 Nasal Cannula 2.00 02/25/18 08:00 81 02/25/18 06:00 79 02/25/18 05:13 89 137/60 02/25/18 04:10 113 25 99/55 (70) 96 02/25/18 04:00 98.1 123 18 110/55 (73) 96 02/25/18 04:00 123 02/25/18 04:00 97 Nasal Cannula 2.00 02/25/18 02:00 128 02/25/18 02:00 128 111/56 02/25/18 01:10 101 198/80 02/25/18 00:46 92 198/70 02/25/18 00:10 98.1 89 14 198/80 (119) 97 02/25/18 00:00 88 02/25/18 00:00 98 Nasal Cannula 2.00 02/24/18 22:00 91 02/24/18 20:10 97.6 85 22 202/79 (120) 98 02/24/18 20:00 85 02/24/18 20:00 98 Nasal Cannula 2.00 02/24/18 18:00 87 02/24/18 16:10 98.6 90 22 113/61 (78) 99 02/24/18 16:00 99 Nasal Cannula 2.00 02/24/18 16:00 87 02/24/18 14:00 89 02/24/18 14:00 98 Nasal Cannula 2.00 02/24/18 14:00 98.5 90 17 179/75 (109) 98 -: 02/24/18 0950 02/24/18 0728 Physical Exam General Appearance Remarks Awake, but confused, not in distress. Neck Neck Exam: Neck Supple Pulmonary Resp Exam: Breath Sounds Equal, No Distress Cardiology CV Exam: Regular, Normal Sinus Rhythm Gastrointestinal/Abdomen GI Exam: Soft, Non-Tender, Bowel Sounds Present Genitourinary Exam: Flank Non-Tender Integumentary Skin Exam: Lesion(s) Extremeties Extremities Exam: Trace Edema Neurologic Neuro Exam: Alert Assessment/Plan Discussed Condition With: Patient Assessment Summary: End Stage Renal Disease Electrolyte Assessment: Hyponatremia Problem List: (1) ESRD on peritoneal dialysis ICD Codes: N18.6 - End stage renal disease; Z99.2 - Dependence on renal dialysis Plan: ESRD on PD nightly CTA noted. Plan Patient is more responsive this morning. PD fluid is clear, WBC was 143, mainly monocytes. Continue PD nightly Continue Phoslo. ID is following, given Vanco. 0n 02/24. On Cefepime. CT abd. and MRI brain results noted. D/W the at bed side. (2) HTN (hypertension) ICD Codes: I10 - Essential (primary) hypertension Plan: Coreg and nifedipine added Clonidine 0.1 PRN (3) Dry gangrene ICD Codes: I96 - Gangrene, not elsewhere classified Status: Acute Plan: History of burn to left foot Podiatry and surgery consulted Vascular surgery consulted. Problem Qualifiers (1) HTN (hypertension): Qualified Codes: I10 - Essential (primary) hypertension Kishore Franks MD Feb 25, 2018 13:04
[2018-02-25] MEDS: MORPHINE SULFATE 2 MG/ML SYRINGE IV PUSH PRN ×3 (13:08→23:35)
[2018-02-25 13:42] LABS: AUTOMATED NEUTROPHIL # 5.9 TH/MM3 (1.8-7.7); BASOPHIL # 0.1 TH/MM3 (0-0.2); BASOPHIL % 1.3 % (0.0-2.0); EOSINOPHIL # 0.3 TH/MM3 (0-0.4); EOSINOPHIL % 3.2 % (0.0-4.0); HEMATOCRIT 44.1 % (39.0-51.0); HEMOGLOBIN 14.1 GM/DL (13.0-17.0); LYMPH % 9.2 % (9.0-44.0); LYMPHOCYTE # 0.8 TH/MM3 (1.0-4.8); MEAN CELL VOLUME 91.8 FL (80.0-100.0); MEAN CORPUSCULAR HEMOGLOBIN 29.4 PG (27.0-34.0); MEAN PLATELET VOLUME 8.2 FL (7.0-11.0); MONO % 13.8 % (0.0-8.0); MONOCYTE # 1.1 TH/MM3 (0-0.9); NEUT % 72.5 % (16.0-70.0); PLATELET COUNT 206 TH/MM3 (150-450); RED BLOOD COUNT 4.81 MIL/MM3 (4.50-5.90); RED CELL DISTRIBUTION WIDTH 14.8 % (11.6-17.2); WHITE BLOOD COUNT 8.2 TH/MM3 (4.0-11.0)
[2018-02-25 14:16] LABS: BICARBONATE 22.9 MEQ/L (21.0-32.0); CALCIUM 8.3 MG/DL (8.5-10.1); CREATININE 5.99 MG/DL (0.60-1.30)
--- NOTE | 2018-02-25 15:21 | HHI.IDPN ---
Subjective Subjective Remarks ID COVERAGE is a 57 y/o CM with PMHx of ESRD on Peritoneal dialysis ( in hospital), HTN, ? Peripheral Neuropathy,CAD s/p CABG. Per review of records it appears that a week [employer] patient was reportedly repairing a radiator when he injured his left foot. He denied any fever, chills, night sweats. He was reportedly sent to ED by wound care MD. Upon arrival to the ED patient was found to have a necrotic left 1st and 2nd toe. Podiatry (), (Vascular surgery) have been following the patient along with Nephrology (Nephrology). On arrival, BP 134/100, HR 80, O2 sat 98% on RA, Afebrile. WBC normal. ESR 49. K+ 6.5. Foot X-ray negative for Osteomyelitis. Vascular surgery did not think patient needed any surgery. Per RN patient was to be discharged but discharge held yday due to Altered Mental Status. saw patient this am and CT head was obtained which showed no new stroke or bleed just chronic encephalomalacia. EEG was ordered and is being changed to STAT by me. Patient has continued to receive PD in hospital and last session was last night. ID consulted for Evaluation and M'ment of Possible Sepsis, Pneumonia. Notes reviewed Temps ok More awake, but confused Moving RLE up and down Has some intermittent jerks in body and extremities CT A/P, chest, brain MRI - reviewed, and report noted BC negative Fluid C/S negative WBC down to normal Antibiotics Current Medications Medications (Trade) Dose Ordered Sig/Cesar Route Start Time Stop Time Status Last Admin Cefepime HCl 1000 mg/Sodium Chloride 100 ml @ 200 mls/hr DAILY IV 02/18/18 09:00 02/25/18 08:01 (NS Flush) 2 ml UNSCH PRN IV FLUSH 02/17/18 20:15 (NS Flush) 2 ml BID IV FLUSH 02/17/18 21:00 02/25/18 08:01 (Zofran Inj) 4 mg Q6H PRN IVP 02/17/18 20:15 02/25/18 00:33 (Heparin Inj) 5,000 units Q12H SQ 02/18/18 09:00 02/25/18 08:01 (Tylenol) 650 mg Q6H PRN PO 02/17/18 20:15 02/18/18 00:37 (Seale 5-325 Mg) 1 tab Q4H PRN PO 02/17/18 20:15 (Morphine Inj) 2 mg Q3H PRN IV PUSH 02/17/18 20:15 02/25/18 13:08 (Jacqui-Colace) 1 tab BID PO 02/17/18 21:00 02/25/18 08:01 (Milk Of Magnesia Liq) 30 ml Q12H PRN PO 02/17/18 20:15 (Senokot) 17.2 mg Q12H PRN PO 02/17/18 20:15 (Dulcolax Supp) 10 mg DAILY PRN RECTAL 02/17/18 20:15 (Lactulose Liq) 30 ml DAILY PRN PO 02/17/18 20:15 (Imdur) 60 mg DAILY PO 02/18/18 09:00 02/25/18 08:01 (Ativan) 1 mg BID PRN PO 02/17/18 23:15 02/24/18 09:32 (Theragran M Tab) 1 tab DAILY PO 02/18/18 09:00 02/25/18 08:01 (Ambien) 10 mg HS PRN PO 02/17/18 23:15 02/18/18 21:58 (D50w (Vial) Inj) 50 ml UNSCH PRN IV PUSH 02/18/18 00:15 (Glucagon Inj) 1 mg UNSCH PRN OTHER 02/18/18 00:15 (NovoLOG SUPPLEMENTAL SCALE) 1 ACHS SLIDING SCALE SQ 02/18/18 08:00 (Heparin Inj) 1,000 units WITH DIALYSIS PRN XX 02/18/18 11:00 (NS Flush) 10 ml UNSCH PRN IV FLUSH 02/18/18 11:00 (Santyl Oint) 1 applic DAILY TOPICAL 02/19/18 09:00 02/24/18 09:00 (Phoslo) 2,001 mg TID PO 02/19/18 18:00 02/25/18 12:25 (Catapres) 0.1 mg Q6H PRN PO 02/19/18 17:15 02/24/18 22:58 (Coreg) 12.5 mg BID PO 02/21/18 21:00 02/25/18 08:01 Sodium Chloride 1,000 ml @ 84 mls/hr [id number] IV 02/24/18 10:00 02/25/18 08:02 (Trandate Inj) 10 mg Q4H PRN IV PUSH 02/24/18 21:00 02/24/18 22:58 (Apresoline Inj) 20 mg Q4H PRN IV PUSH 02/24/18 21:00 02/24/18 21:24 Miscellaneous Information Patient in critical care unit? Ass... [id number] .XX 02/24/18 22:15 02/24/18 22:15 (Chlorhexidine 2% Cloth) 3 pack DAILY@04 TOPICAL 02/25/18 04:00 03/01/18 04:01 02/25/18 04:00 (Chlorhexidine 2% Cloth) 3 pack UNSCH PRN TOPICAL 02/24/18 22:15 03/01/18 22:02 Nicardipine HCl 25 mg/Sodium Chloride 250 ml @ 50 mls/hr TITRATE PRN IV 02/25/18 00:30 02/25/18 05:13 Lines Line no evidence of infection Past Medical History ESRD on PD HTN Past Surgical History CABG, Cholecystectomy Allergies: Coded Allergies: gabapentin (Unverified Allergy, Mild, Itching, 02/17/18) Objective . Vital Signs Date Time Temp Pulse Resp B/P (MAP) Pulse Ox O2 Delivery O2 Flow Rate FiO2 02/25/18 12:00 84 02/25/18 12:00 98 Nasal Cannula 2.00 02/25/18 11:00 84 02/25/18 11:00 84 16 100 02/25/18 10:00 82 02/25/18 10:00 82 15 143/63 (89) 99 02/25/18 09:45 81 12 144/62 (89) 98 02/25/18 09:45 81 02/25/18 09:31 84 15 138/60 (86) 97 02/25/18 09:31 84 02/25/18 09:15 82 15 141/62 (88) 95 02/25/18 09:15 82 02/25/18 09:00 80 13 131/59 (83) 97 02/25/18 09:00 80 02/25/18 08:45 78 14 123/57 (79) 98 02/25/18 08:45 78 02/25/18 08:30 80 02/25/18 08:30 80 13 128/60 (82) 98 02/25/18 08:15 82 02/25/18 08:15 82 12 125/60 (81) 97 02/25/18 08:14 97 Nasal Cannula 2.00 02/25/18 08:00 98.5 81 19 123/59 (80) 96 02/25/18 08:00 98 Nasal Cannula 2.00 02/25/18 08:00 81 02/25/18 06:00 79 02/25/18 05:13 89 137/60 02/25/18 04:10 113 25 99/55 (70) 96 02/25/18 04:00 98.1 123 18 110/55 (73) 96 02/25/18 04:00 123 02/25/18 04:00 97 Nasal Cannula 2.00 02/25/18 02:00 128 02/25/18 02:00 128 111/56 02/25/18 01:10 101 198/80 02/25/18 00:46 92 198/70 02/25/18 00:10 98.1 89 14 198/80 (119) 97 02/25/18 00:00 88 02/25/18 00:00 98 Nasal Cannula 2.00 02/24/18 22:00 91 02/24/18 20:10 97.6 85 22 202/79 (120) 98 02/24/18 20:00 85 02/24/18 20:00 98 Nasal Cannula 2.00 02/24/18 18:00 87 02/24/18 16:10 98.6 90 22 113/61 (78) 99 02/24/18 16:00 99 Nasal Cannula 2.00 02/24/18 16:00 87 02/25/18 02/25/18 02/26/18 15:00 23:00 07:00 Output Total 729 ml Balance -729 ml Peritoneal Fluid 729 ml . Laboratory Tests Test 02/23/18 20:16 02/24/18 09:50 02/25/18 13:05 White Blood Count 9.2 TH/MM3 13.0 TH/MM3 8.2 TH/MM3 Red Blood Count 4.33 MIL/MM3 4.40 MIL/MM3 4.81 MIL/MM3 Hemoglobin 12.7 GM/DL 12.8 GM/DL 14.1 GM/DL Hematocrit 39.1 % 39.6 % 44.1 % Mean Corpuscular Volume 90.2 FL 90.1 FL 91.8 FL Mean Corpuscular Hemoglobin 29.4 PG 29.2 PG 29.4 PG Mean Corpuscular Hemoglobin Concent 32.6 % 32.4 % 32.0 % Red Cell Distribution Width 14.7 % 14.6 % 14.8 % Platelet Count 205 TH/MM3 220 TH/MM3 206 TH/MM3 Mean Platelet Volume 8.6 FL 8.9 FL 8.2 FL Neutrophils (%) (Auto) 76.8 % 80.0 % 72.5 % Lymphocytes (%) (Auto) 8.7 % 7.4 % 9.2 % Monocytes (%) (Auto) 10.2 % 10.5 % 13.8 % Eosinophils (%) (Auto) 3.0 % 0.8 % 3.2 % Basophils (%) (Auto) 1.3 % 1.3 % 1.3 % Neutrophils # (Auto) 7.1 TH/MM3 10.4 TH/MM3 5.9 TH/MM3 Lymphocytes # (Auto) 0.8 TH/MM3 1.0 TH/MM3 0.8 TH/MM3 Monocytes # (Auto) 0.9 TH/MM3 1.4 TH/MM3 1.1 TH/MM3 Eosinophils # (Auto) 0.3 TH/MM3 0.1 TH/MM3 0.3 TH/MM3 Basophils # (Auto) 0.1 TH/MM3 0.2 TH/MM3 0.1 TH/MM3 CBC Comment DIFF FINAL DIFF FINAL DIFF FINAL Differential Comment Laboratory Tests Test 02/23/18 20:16 02/24/18 07:28 02/24/18 19:39 02/25/18 13:05 Blood Urea Nitrogen 85 MG/DL 78 MG/DL 70 MG/DL Creatinine 6.48 MG/DL 6.25 MG/DL 5.99 MG/DL Random Glucose 182 MG/DL 106 MG/DL 111 MG/DL Total Protein 7.8 GM/DL Albumin 1.8 GM/DL Calcium Level 8.5 MG/DL 8.4 MG/DL 8.3 MG/DL Alkaline Phosphatase 71 U/L Aspartate Amino Transf (AST/SGOT) 56 U/L Alanine Aminotransferase (ALT/SGPT) 29 U/L Total Bilirubin 0.4 MG/DL Sodium Level 127 MEQ/L 128 MEQ/L 130 MEQ/L Potassium Level 4.9 MEQ/L 4.8 MEQ/L 4.5 MEQ/L Chloride Level 92 MEQ/L 94 MEQ/L 97 MEQ/L Carbon Dioxide Level 23.0 MEQ/L 24.0 MEQ/L 22.9 MEQ/L Anion Gap 12 MEQ/L 10 MEQ/L 10 MEQ/L Estimat Glomerular Filtration Rate 9 ML/MIN 9 ML/MIN 10 ML/MIN Ammonia 19 MCMOL/L Lactic Acid Level 0.6 mmol/L Microbiology Date/Time Source Procedure Growth Status 02/23/18 20:16 Blood Arterial Line Aerobic Blood Culture - Preliminary NO GROWTH IN 2 DAYS Resulted 02/23/18 20:16 Blood Arterial Line Anaerobic Blood Culture - Preliminary NO GROWTH IN 2 DAYS Resulted 02/23/18 20:11 Blood Arterial Line Aerobic Blood Culture - Preliminary NO GROWTH IN 2 DAYS Resulted 02/23/18 20:11 Blood Arterial Line Anaerobic Blood Culture - Preliminary NO GROWTH IN 2 DAYS Resulted 02/24/18 04:15 Fluid Peritoneal Fluid Gram Stain - Final Resulted 02/24/18 04:15 Fluid Peritoneal Fluid Body Fluid Culture - Preliminary NO GROWTH IN 24 HOURS. Resulted Imaging Last Impressions Brain MRI 02/25/18 0000 Signed Impressions: Service Date/Time: Sunday, February 25, 2018 10:36 - CONCLUSION: 1. No acute hemorrhage, mass or infarction. 2. Area of apparent gliosis in the left occipital lobe with no restricted diffusion. Tio Koehler MD Abdomen/Pelvis CT 02/24/18 1159 Signed Impressions: Service Date/Time: Sunday, February 25, 2018 10:16 - CONCLUSION: 1. Peritoneal dialysis catheter in place with small amount of ascitic fluid. 2. Bilateral pleural effusions and consolidation in the posterior lower lobes. Please see chest CT for further details. 3. Unremarkable bowel gas pattern. Tio Koehler MD Head CT 02/24/18 0000 Signed Impressions: Service Date/Time: Saturday, February 24, 2018 10:38 - CONCLUSION: 1. Focal area of decreased signal in the left occipital lobe likely representing an area of encephalomalacia. 2. No acute hemorrhage or mass effect. Tio Koehler MD Chest X-Ray 02/24/18 0000 Signed Impressions: Service Date/Time: Saturday, February 24, 2018 12:03 - CONCLUSION: 1. Cardiomegaly with mild edema pattern. More focal consolidation at the left lung base could represent a superimposed bronchopneumonia. Small effusions. Ian Noyola MD Chest CT 02/24/18 0000 Signed Impressions: Service Date/Time: Sunday, February 25, 2018 10:16 - CONCLUSION: 1. Consolidation in both lower lobes left greater than right. This could represent pneumonia. 2. Bilateral pleural effusions left greater than right. 3. Status post median sternotomy with cardiomegaly and postsurgical change. Tio Koehler MD Abdomen X-Ray 02/24/18 0000 Signed Impressions: Service Date/Time: Saturday, February 24, 2018 12:07 - CONCLUSION: 1. No acute findings within the abdomen. Specifically no free air identified. Ian Noyola MD Aorta w/Runoff CTA 02/21/18 0000 Signed Impressions: Service Date/Time: Wednesday, February 21, 2018 12:39 - CONCLUSION: 1. Diffuse calcified plaque with patent inflow and outflow bilaterally. 2. Severe calcification of the trifurcation vessels bilaterally significantly limits their is evaluation. High-grade stenoses seen involving articular artery and posterior tibial artery on the left. On the right the trifurcation vessels are felt grossly patent. 3. Small left effusion with associated passive atelectasis. Elijah James Jr., MD Foot X-Ray 02/17/18 0000 Signed Impressions: Service Date/Time: Saturday, February 17, 2018 16:46 - CONCLUSION: Negative fast myelitis Gene Garcia MD FACR Physical Exam GENERAL: Chronically ill appearing patient, in no Cardiopulm distress. Restless. Awake and did not follow commands SKIN: No rashes, ecchymoses or lesions. Cool and dry. HEAD: Atraumatic. Normocephalic. No temporal or scalp tenderness. EYES: Pupils equal round and reactive. No scleral icterus. No injection or drainage. ENT: Secretions pooling in oral cavity. NECK: Trachea midline. Supple, nontender, no meningeal signs. CARDIOVASCULAR: HS audible. Midline CABG scar intact. RESPIRATORY: Bilateral wheezing and basilar creps. Decreased AE bilaterally. GASTROINTESTINAL: Abdomen soft, PD cath site ok but tender. Abdomen min tenderness, no rigidity. MUSCULOSKELETAL: Left great toe with necrotic area and surrounding erythema. NEUROLOGICAL: Awake, focusing, did not follow. Has restraints in BUE, moving RLE a lot Psych could not be assessed IV line sites with no e.o infection. Assessment & Plan Remarks Possible Sepsis. Left great toe and 2nd toe gangrene possible cellulitis. PD cath related peritonitis possible. Possible Aspiration Pneumonia. acute metabolic encephalopathy: ? seizures, ? uremia, sepsis. ESRD on PD. HTN CAD s/p CABG. Recs Continue Cefepime 1 gm IV daily. Check Vanco level in AM Follow peritoneal fluid studies. Follow cultures Monitor progress Spoke with at bedside Lizz Ureña MD Feb 25, 2018 15:21
--- NOTE | 2018-02-25 16:31 | HHI.CCPN ---
Subjective Remarks/Hospital Course 02/24: is a 57 y/o CM with PMHx of ESRD on Peritoneal dialysis ( in hospital), HTN, ? Peripheral Neuropathy,CAD s/p CABG. Per review of records it appears that a week [employer] patient was reportedly repairing a radiator when he injured his left foot. He denied any fever, chills, night sweats. He was reportedly sent to ED by wound care MD. Upon arrival to the ED patient was found to have a necrotic left 1st and 2nd toe. Podiatry (), (Vascular surgery) have been following the patient along with Nephrology (Nephrology). On arrival, BP 134/100, HR 80, O2 sat 98% on RA, Afebrile. WBC normal. ESR 49. K+ 6.5. Foot X-ray negative for Osteomyelitis. Vascular surgery did not think patient needed any surgery. Per RN patient was to be discharged but discharge held yday due to Altered Mental Status. Patient developed altered mental status overnight. saw patient this am and CT head was obtained which showed no new stroke or bleed just chronic encephalomalacia. ID was consulted by Dr. Lin in view of concern for his worsening sepsis causing altered mental status. Patient was noted to have some twitching movements and tremors on ID evaluation and critical care consult was requested in view of concern regarding airway protection and possible etiology of seizures and concern regarding aspiration. I evaluated the patient on the floor. At that time he was completely disoriented, awake with twitching and tremors which appeared to be generalized. He was otherwise maintaining his O2 sats and was awake however not following commands. Stat EEG was started after my evaluation. History was obtained by reviewing records and discussion with nursing staff as well as ID physician. Patient to be transferred to ICU following EEG. Appeared to be protecting airway at the time of my evaluation. 02/25: Drowsy, easily arousable, disoriented. Not in any acute distress. Twitching's still present however decreased compared to yesterday. Objective Vital Signs Date Time Temp Pulse Resp B/P (MAP) Pulse Ox O2 Delivery O2 Flow Rate FiO2 02/25/18 16:00 81 02/25/18 15:34 18 169/72 (104) 99 02/25/18 12:00 Nasal Cannula 2.00 02/25/18 08:00 98.5 Intake and Output 02/25/18 02/25/18 4/12/15 08:00 16:00 00:00 Intake Total 250 ml Output Total 729 ml Balance 250 ml -729 ml Result Diagram: 02/25/18 1305 02/25/18 1305 Imaging Last Impressions Head CT 02/24/18 0000 Signed Impressions: Service Date/Time: Saturday, February 24, 2018 10:38 - CONCLUSION: 1. Focal area of decreased signal in the left occipital lobe likely representing an area of encephalomalacia. 2. No acute hemorrhage or mass effect. Tio Koehler MD Chest X-Ray 02/24/18 0000 Signed Impressions: Service Date/Time: Saturday, February 24, 2018 12:03 - CONCLUSION: 1. Cardiomegaly with mild edema pattern. More focal consolidation at the left lung base could represent a superimposed bronchopneumonia. Small effusions. Ian Noyola MD Abdomen X-Ray 02/24/18 0000 Signed Impressions: Service Date/Time: Saturday, February 24, 2018 12:07 - CONCLUSION: 1. No acute findings within the abdomen. Specifically no free air identified. Ian Noyola MD Aorta w/Runoff CTA 02/21/18 0000 Signed Impressions: Service Date/Time: Wednesday, February 21, 2018 12:39 - CONCLUSION: 1. Diffuse calcified plaque with patent inflow and outflow bilaterally. 2. Severe calcification of the trifurcation vessels bilaterally significantly limits their is evaluation. High-grade stenoses seen involving articular artery and posterior tibial artery on the left. On the right the trifurcation vessels are felt grossly patent. 3. Small left effusion with associated passive atelectasis. Elijah James Jr., MD Foot X-Ray 02/17/18 0000 Signed Impressions: Service Date/Time: Saturday, February 17, 2018 16:46 - CONCLUSION: Negative fast myelitis Gene Garcia MD FACR Objective Remarks HEENT/Neuro: Pallor present, no icterus, tongue moist, ARLIN, awake, disoriented, unintelligible speech. Appears to have twitching movements all over with jerking movements involving extremities, following simple commands like showing me his tongue. Neck: No JVD Chest/pulmonary: Good air entry bilaterally though decreased at bases, scattered rhonchi, no wheezing or crackles Cardiovascular: Sternotomy scar noted. S1-S2 regular no gallop or murmur GI/abdomen: Soft, vague tenderness, bowel sounds sluggish. PD catheter in place Extremities: . 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 Left foot with gangrene of the great toe with surrounding erythema A/P Assessment and Plan 57-year-old male with Encephalopathy: ? seizures, ? uremia, sepsis Tremors/involuntary movement Suspected sepsis Cellulitis around left great toe Possible aspiration pneumonia Dry Gangrene: - s/p burn to left foot w/ necrotic wound to left great toe, blisters to left 2nd toe and dorsum of left foot. ESRD on peritoneal dialysis PVD CAD status post previous CABG Hypertension Plan: Neuro: Head CT without any evidence of bleed. Encephalomalacia appears to be old. EEG with no evidence of seizure activity per discussion with the pharmacy resource tech and appears to be abnormal secondary to metabolic encephalopathy. Neurology Dr. Don consulted for further evaluation of encephalopathy. MRI brain with no acute findings. Small area of left occipital lobe encephalomalacia. Avoid sedatives and narcotics if possible. Cardiovascular: Continue antihypertensives and cardiac medications. Pulmonary: Supplemental O2 as needed. Bronchodilators as needed. Currently protecting airway. If neurologic status worsens, may require endotracheal intubation. GI/liver: advance to renal diet as tolerated. Renal/: On peritoneal dialysis, being followed by nephrology-Dr. Franks. ID: Follow-up cultures. ID consult requested by Dr. Lin. Antibiotics per ID. Foot X-ray negative for osteomyelitis. Dr. Magdaleno from podiatry following for gangrenous left great toe. Heme: Follow CBC Endocrine: SSI for glycemic control as needed. Prophylaxis: Subcutaneous heparin for DVT prophylaxis. Critical care will continue to follow. Elmo Almonte MD Feb 25, 2018 16:31
[2018-02-25] MEDS: COLLAGENASE OINT 30 GM TUBE TOPICAL SCH (19:04)
[2018-02-25] MEDS: LORazepam 1 MG TAB PO PRN (20:13)
[2018-02-26] VITALS (29 sets, daily range): BP systolic 112–194; BP diastolic 55–86; PULSE 86–108; RESP 5–21; TEMP 97.2–98.6; O2SAT 95–100
[2018-02-26] MEDS: hydrALAZINE HCL 20 MG/ML VIAL IV PUSH PRN ×4 (03:58→23:34)
[2018-02-26] MEDS: MORPHINE SULFATE 2 MG/ML SYRINGE IV PUSH PRN ×4 (03:59→20:04)
[2018-02-26] MEDS: CHLORHEXIDINE GLUCONATE 2 % 1 PACK (2 CLOTHS)(taper/protocol) TOPICAL SCH (04:00)
[2018-02-26] MEDS ORDERED: PROPOFOL 500 MG/50 ML INJ 50 ML ONE (07:57)
[2018-02-26] MEDS: INSULIN ASPART SUPPLEMENTAL SCALE SQ SCH ×4 (08:00→21:00)
--- NOTE | 2018-02-26 08:39 | HHI.IDPN ---
Subjective Subjective Remarks ID COVERAGE is a 57 y/o CM with PMHx of ESRD on Peritoneal dialysis ( in hospital), HTN, ? Peripheral Neuropathy,CAD s/p CABG. 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 He denied any fever, chills, night sweats. He was reportedly sent to ED by wound care MD. Upon arrival to the ED patient was found to have a necrotic left 1st and 2nd toe. Podiatry (), (Vascular surgery) have been following the patient along with Nephrology (Nephrology). On arrival, BP 134/100, HR 80, O2 sat 98% on RA, Afebrile. WBC normal. ESR 49. K+ 6.5. Foot X-ray negative for Osteomyelitis. Vascular surgery did not think patient needed any surgery. Per RN patient was to be discharged but discharge held yday due to Altered Mental Status. saw patient this am and CT head was obtained which showed no new stroke or bleed just chronic encephalomalacia. EEG was ordered and is being changed to STAT by me. Patient has continued to receive PD in hospital and last session was last night. ID consulted for Evaluation and M'ment of Possible Sepsis, Pneumonia. Notes reviewed Temps ok Had PD last night Awake and answered my questions He is calm and cooperative this morning No jerky movements noted today BC negative PD fluid negative vanco level 19.2 WBC normal Antibiotics Current Medications Medications (Trade) Dose Ordered Sig/Cesar Route Start Time Stop Time Status Last Admin Cefepime HCl 1000 mg/Sodium Chloride 100 ml @ 200 mls/hr DAILY IV 02/18/18 09:00 02/25/18 08:01 (NS Flush) 2 ml UNSCH PRN IV FLUSH 02/17/18 20:15 (NS Flush) 2 ml BID IV FLUSH 02/17/18 21:00 02/25/18 20:32 (Zofran Inj) 4 mg Q6H PRN IVP 02/17/18 20:15 02/25/18 00:33 (Heparin Inj) 5,000 units Q12H SQ 02/18/18 09:00 02/25/18 20:13 (Tylenol) 650 mg Q6H PRN PO 3/23/18 20:15 02/18/18 00:37 ([place] 5-325 Mg) 1 tab Q4H PRN PO 02/17/18 20:15 (Morphine Inj) 2 mg Q3H PRN IV PUSH 02/17/18 20:15 02/26/18 06:34 (Jacqui-Colace) 1 tab BID PO 02/17/18 21:00 02/25/18 20:13 (Milk Of Magnesia Liq) 30 ml Q12H PRN PO 02/17/18 20:15 (Senokot) 17.2 mg Q12H PRN PO 02/17/18 20:15 (Dulcolax Supp) 10 mg DAILY PRN RECTAL 02/17/18 20:15 (Lactulose Liq) 30 ml DAILY PRN PO 02/17/18 20:15 (Imdur) 60 mg DAILY PO 02/18/18 09:00 02/25/18 08:01 (Ativan) 1 mg BID PRN PO 02/17/18 23:15 02/25/18 20:13 (Theragran M Tab) 1 tab DAILY PO 02/18/18 09:00 02/25/18 08:01 (Ambien) 10 mg HS PRN PO 02/17/18 23:15 02/18/18 21:58 (D50w (Vial) Inj) 50 ml UNSCH PRN IV PUSH 02/18/18 00:15 (Glucagon Inj) 1 mg UNSCH PRN OTHER 02/18/18 00:15 (NovoLOG SUPPLEMENTAL SCALE) 1 ACHS SLIDING SCALE SQ 02/18/18 08:00 (Heparin Inj) 1,000 units WITH DIALYSIS PRN XX 02/18/18 11:00 (NS Flush) 10 ml UNSCH PRN IV FLUSH 02/18/18 11:00 (Santyl Oint) 1 applic DAILY TOPICAL 02/19/18 09:00 02/25/18 19:04 (Phoslo) 2,001 mg TID PO 02/19/18 18:00 02/25/18 19:07 (Catapres) 0.1 mg Q6H PRN PO 02/19/18 17:15 02/24/18 22:58 (Coreg) 12.5 mg BID PO 3/27/18 21:00 02/25/18 20:13 Sodium Chloride 1,000 ml @ 84 mls/hr [id number] IV 02/24/18 10:00 02/25/18 21:45 (Trandate Inj) 10 mg Q4H PRN IV PUSH 02/24/18 21:00 02/24/18 22:58 (Apresoline Inj) 20 mg Q4H PRN IV PUSH 02/24/18 21:00 02/26/18 06:32 Miscellaneous Information Patient in critical care unit? Ass... [id number] .XX 02/24/18 22:15 02/24/18 22:15 (Chlorhexidine 2% Cloth) 3 pack DAILY@04 TOPICAL 02/25/18 04:00 03/01/18 04:01 02/26/18 04:00 (Chlorhexidine 2% Cloth) 3 pack UNSCH PRN TOPICAL 02/24/18 22:15 03/01/18 22:02 Nicardipine HCl 25 mg/Sodium Chloride 250 ml @ 50 mls/hr TITRATE PRN IV 02/25/18 00:30 02/25/18 05:13 Lines Line no evidence of infection Past Medical History ESRD on PD HTN Past Surgical History CABG, Cholecystectomy Allergies: Coded Allergies: gabapentin (Unverified Allergy, Mild, Itching, 02/17/18) Objective . Vital Signs Date Time Temp Pulse Resp B/P (MAP) Pulse Ox O2 Delivery O2 Flow Rate FiO2 02/26/18 06:00 86 02/26/18 04:10 98.6 89 14 112/76 (88) 100 02/26/18 04:04 22 02/26/18 04:00 89 02/26/18 04:00 100 Nasal Cannula 2.00 02/26/18 00:10 98.4 87 14 156/76 (102) 100 02/26/18 00:00 87 02/26/18 00:00 100 Nasal Cannula 2.00 02/25/18 22:00 88 02/25/18 20:10 98.7 87 12 177/81 (113) 100 02/25/18 20:00 100 Nasal Cannula 2.00 02/25/18 20:00 87 02/25/18 20:00 98.7 87 12 177/81 (113) 100 02/25/18 18:00 84 9 100 02/25/18 18:00 84 02/25/18 17:00 79 9 100 02/25/18 16:00 81 02/25/18 16:00 98 Nasal Cannula 2.00 02/25/18 16:00 98.9 81 12 169/72 (104) 100 02/25/18 15:34 84 02/25/18 15:34 84 18 169/72 (104) 99 02/25/18 15:10 81 17 100 02/25/18 15:00 82 02/25/18 14:10 80 11 100 02/25/18 14:00 80 02/25/18 13:10 83 10 100 02/25/18 12:10 85 16 143/63 (89) 100 02/25/18 12:00 84 02/25/18 12:00 98 Nasal Cannula 2.00 02/25/18 11:00 84 02/25/18 11:00 84 16 100 02/25/18 10:00 82 02/25/18 10:00 82 15 143/63 (89) 99 02/25/18 09:45 81 12 144/62 (89) 98 02/25/18 09:45 81 02/25/18 09:31 84 15 138/60 (86) 97 02/25/18 09:31 84 02/25/18 09:15 82 15 141/62 (88) 95 02/25/18 09:15 82 02/25/18 09:00 80 13 131/59 (83) 97 02/25/18 09:00 80 02/25/18 08:45 78 14 123/57 (79) 98 02/25/18 08:45 78 . Laboratory Tests Test 02/24/18 09:50 02/25/18 13:05 White Blood Count 13.0 TH/MM3 8.2 TH/MM3 Red Blood Count 4.40 MIL/MM3 4.81 MIL/MM3 Hemoglobin 12.8 GM/DL 14.1 GM/DL Hematocrit 39.6 % 44.1 % Mean Corpuscular Volume 90.1 FL 91.8 FL Mean Corpuscular Hemoglobin 29.2 PG 29.4 PG Mean Corpuscular Hemoglobin Concent 32.4 % 32.0 % Red Cell Distribution Width 14.6 % 14.8 % Platelet Count 220 TH/MM3 206 TH/MM3 Mean Platelet Volume 8.9 FL 8.2 FL Neutrophils (%) (Auto) 80.0 % 72.5 % Lymphocytes (%) (Auto) 7.4 % 9.2 % Monocytes (%) (Auto) 10.5 % 13.8 % Eosinophils (%) (Auto) 0.8 % 3.2 % Basophils (%) (Auto) 1.3 % 1.3 % Neutrophils # (Auto) 10.4 TH/MM3 5.9 TH/MM3 Lymphocytes # (Auto) 1.0 TH/MM3 0.8 TH/MM3 Monocytes # (Auto) 1.4 TH/MM3 1.1 TH/MM3 Eosinophils # (Auto) 0.1 TH/MM3 0.3 TH/MM3 Basophils # (Auto) 0.2 TH/MM3 0.1 TH/MM3 CBC Comment DIFF FINAL DIFF FINAL Differential Comment Laboratory Tests Test 02/24/18 19:39 02/25/18 13:05 Lactic Acid Level 0.6 mmol/L Blood Urea Nitrogen 70 MG/DL Creatinine 5.99 MG/DL Random Glucose 111 MG/DL Calcium Level 8.3 MG/DL Sodium Level 130 MEQ/L Potassium Level 4.5 MEQ/L Chloride Level 97 MEQ/L Carbon Dioxide Level 22.9 MEQ/L Anion Gap 10 MEQ/L Estimat Glomerular Filtration Rate 10 ML/MIN Microbiology Date/Time Source Procedure Growth Status 02/23/18 20:16 Blood Arterial Line Aerobic Blood Culture - Preliminary NO GROWTH IN 2 DAYS Resulted 02/23/18 20:16 Blood Arterial Line Anaerobic Blood Culture - Preliminary NO GROWTH IN 2 DAYS Resulted 02/23/18 20:11 Blood Arterial Line Aerobic Blood Culture - Preliminary NO GROWTH IN 2 DAYS Resulted 02/23/18 20:11 Blood Arterial Line Anaerobic Blood Culture - Preliminary NO GROWTH IN 2 DAYS Resulted 02/24/18 04:15 Fluid Peritoneal Fluid Gram Stain - Final Resulted 02/24/18 04:15 Fluid Peritoneal Fluid Body Fluid Culture - Preliminary NO GROWTH IN 24 HOURS. Resulted Imaging Last Impressions Brain MRI 02/25/18 0000 Signed Impressions: Service Date/Time: Sunday, February 25, 2018 10:36 - CONCLUSION: 1. No acute hemorrhage, mass or infarction. 2. Area of apparent gliosis in the left occipital lobe with no restricted diffusion. Tio Koehler MD Abdomen/Pelvis CT 02/24/18 1159 Signed Impressions: Service Date/Time: Sunday, February 25, 2018 10:16 - CONCLUSION: 1. Peritoneal dialysis catheter in place with small amount of ascitic fluid. 2. Bilateral pleural effusions and consolidation in the posterior lower lobes. Please see chest CT for further details. 3. Unremarkable bowel gas pattern. Tio Koehler MD Head CT 02/24/18 0000 Signed Impressions: Service Date/Time: Saturday, February 24, 2018 10:38 - CONCLUSION: 1. Focal area of decreased signal in the left occipital lobe likely representing an area of encephalomalacia. 2. No acute hemorrhage or mass effect. Tio Koehler MD Chest X-Ray 02/24/18 0000 Signed Impressions: Service Date/Time: Saturday, February 24, 2018 12:03 - CONCLUSION: 1. Cardiomegaly with mild edema pattern. More focal consolidation at the left lung base could represent a superimposed bronchopneumonia. Small effusions. Ian Noyola MD Chest CT 02/24/18 0000 Signed Impressions: Service Date/Time: Sunday, February 25, 2018 10:16 - CONCLUSION: 1. Consolidation in both lower lobes left greater than right. This could represent pneumonia. 2. Bilateral pleural effusions left greater than right. 3. Status post median sternotomy with cardiomegaly and postsurgical change. Tio Koehler MD Abdomen X-Ray 02/24/18 0000 Signed Impressions: Service Date/Time: Saturday, February 24, 2018 12:07 - CONCLUSION: 1. No acute findings within the abdomen. Specifically no free air identified. Ian Noyola MD Aorta w/Runoff CTA 02/21/18 0000 Signed Impressions: Service Date/Time: Wednesday, February 21, 2018 12:39 - CONCLUSION: 1. Diffuse calcified plaque with patent inflow and outflow bilaterally. 2. Severe calcification of the trifurcation vessels bilaterally significantly limits their is evaluation. High-grade stenoses seen involving articular artery and posterior tibial artery on the left. On the right the trifurcation vessels are felt grossly patent. 3. Small left effusion with associated passive atelectasis. Elijah James Jr., MD Foot X-Ray 02/17/18 0000 Signed Impressions: Service Date/Time: Saturday, February 17, 2018 16:46 - CONCLUSION: Negative fast myelitis Gene Garcia MD FACR Physical Exam GENERAL: Awake and alert, answered my questions, follows commands, NAD SKIN: No rashes, ecchymoses or lesions. Cool and dry. HEAD: Atraumatic. Normocephalic. No temporal or scalp tenderness. EYES: Pupils equal round and reactive. No scleral icterus. No injection or drainage. ENT: Secretions pooling in oral cavity. NECK: Trachea midline. Supple, nontender, no meningeal signs. CARDIOVASCULAR: HS audible. Midline CABG scar intact. RESPIRATORY: Bilateral wheezing and basilar creps. Decreased AE bilaterally. GASTROINTESTINAL: Abdomen soft, PD cath site ok. Abdomen min tenderness, no rigidity. MUSCULOSKELETAL: Left great toe with necrotic area and surrounding erythema. NEUROLOGICAL: Awake, and alert, following commnads Psych Calm and cooperative this morning IV line sites with no e.o infection. Assessment & Plan Remarks Possible Sepsis. Left great toe and 2nd toe gangrene possible cellulitis. PD cath related peritonitis possible. Possible Aspiration Pneumonia. acute metabolic encephalopathy: ? seizures, ? uremia, sepsis. - better today ESRD on PD. HTN CAD s/p CABG. Recs Continue Cefepime 1 gm IV daily. Give dose of vanco today and check level in AM Follow peritoneal fluid studies. Follow cultures Monitor progress D/W Lizz Petit MD Feb 26, 2018 08:39
[2018-02-26] MEDS: ISOSORBIDE MONONITRATE 60 MG CR TAB (IMDUR) PO SCH (08:47)
[2018-02-26] MEDS: MULTIVITAMINS/MINERALS THERAPEUTIC TAB PO SCH (08:47)
[2018-02-26] MEDS: cloNIDine HCL 0.1 MG TAB PO PRN (08:47)
[2018-02-26] MEDS: SODIUM CHLORIDE 0.9% FLUSH 10 ML FLUSH IV FLUSH SCH ×2 (08:47→23:36)
[2018-02-26] MEDS: DOCUSATE SODIUM 50 MG/SENNA 8.6 MG TAB PO SCH ×2 (08:47→20:07)
[2018-02-26] MEDS: CARVEDILOL 12.5 MG TAB PO SCH ×2 (08:47→20:07)
[2018-02-26] MEDS: CEFEPIME INJ 1,000 MG in SODIUM CHLORIDE 0.9% INJ 100 ML IV SCH (08:47)
[2018-02-26] MEDS: COLLAGENASE OINT 30 GM TUBE TOPICAL SCH (08:48)
[2018-02-26] MEDS: HEPARIN SODIUM - SQ 10,000 UNITS/ML VIAL SQ SCH ×2 (08:48→20:07)
[2018-02-26] MEDS: CALCIUM ACETATE 667 MG CAP PO SCH ×3 (08:48→17:33)
[2018-02-26] MEDS: ONDANSETRON HCL 4 MG/2 ML VIAL IVP PRN ×2 (09:09→20:07)
[2018-02-26] MEDS ORDERED: VANCOMYCIN INJ 1,250 MG in SODIUM CHLOR 0.9% 250 ML INJ 250 ML IV ONE (09:30)
[2018-02-26] MEDS: SODIUM CHLOR 0.9% 1000 ML INJ 1,000 ML IV SCH (10:12)
--- NOTE | 2018-02-26 10:13 | HHI.CCPN ---
Subjective Remarks/Hospital Course 02/24: is a 57 y/o CM with PMHx of ESRD on Peritoneal dialysis ( in hospital), HTN, ? Peripheral Neuropathy,CAD s/p CABG. 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 He denied any fever, chills, night sweats. He was reportedly sent to ED by wound care MD. Upon arrival to the ED patient was found to have a necrotic left 1st and 2nd toe. Podiatry (), (Vascular surgery) have been following the patient along with Nephrology (Nephrology). On arrival, BP 134/100, HR 80, O2 sat 98% on RA, Afebrile. WBC normal. ESR 49. K+ 6.5. Foot X-ray negative for Osteomyelitis. Vascular surgery did not think patient needed any surgery. Per RN patient was to be discharged but discharge held yday due to Altered Mental Status. Patient developed altered mental status overnight. saw patient this am and CT head was obtained which showed no new stroke or bleed just chronic encephalomalacia. ID was consulted by Dr. Lin in view of concern for his worsening sepsis causing altered mental status. Patient was noted to have some twitching movements and tremors on ID evaluation and critical care consult was requested in view of concern regarding airway protection and possible etiology of seizures and concern regarding aspiration. I evaluated the patient on the floor. At that time he was completely disoriented, awake with twitching and tremors which appeared to be generalized. He was otherwise maintaining his O2 sats and was awake however not following commands. Stat EEG was started after my evaluation. History was obtained by reviewing records and discussion with nursing staff as well as ID physician. Patient to be transferred to ICU following EEG. Appeared to be protecting airway at the time of my evaluation. 02/25: Drowsy, easily arousable, disoriented. Not in any acute distress. Twitching's still present however decreased compared to yesterday. 02/26: More awake, following commands, gave me his name. Twitching/tremors appear to have improved. Still confused and disoriented. Cannot tell me where he is and cannot tell me his home address. Cannot tell me the date month or year. Laying in bed not in any acute distress. Objective Vital Signs Date Time Temp Pulse Resp B/P (MAP) Pulse Ox O2 Delivery O2 Flow Rate FiO2 02/26/18 06:00 86 02/26/18 04:10 98.6 14 112/76 (88) 100 02/26/18 04:00 Nasal Cannula 2.00 Intake and Output 02/26/18 02/26/18 02/27/18 08:00 16:00 00:00 Output Total 1113 ml Balance -1113 ml Result Diagram: 02/25/18 1305 02/25/18 1305 Imaging Last Impressions Head CT 02/24/18 0000 Signed Impressions: Service Date/Time: Saturday, February 24, 2018 10:38 - CONCLUSION: 1. Focal area of decreased signal in the left occipital lobe likely representing an area of encephalomalacia. 2. No acute hemorrhage or mass effect. Tio Koehler MD Chest X-Ray 02/24/18 0000 Signed Impressions: Service Date/Time: Saturday, February 24, 2018 12:03 - CONCLUSION: 1. Cardiomegaly with mild edema pattern. More focal consolidation at the left lung base could represent a superimposed bronchopneumonia. Small effusions. Ian Noyola MD Abdomen X-Ray 02/24/18 0000 Signed Impressions: Service Date/Time: Saturday, February 24, 2018 12:07 - CONCLUSION: 1. No acute findings within the abdomen. Specifically no free air identified. Ian Noyola MD Aorta w/Runoff CTA 02/21/18 0000 Signed Impressions: Service Date/Time: Wednesday, February 21, 2018 12:39 - CONCLUSION: 1. Diffuse calcified plaque with patent inflow and outflow bilaterally. 2. Severe calcification of the trifurcation vessels bilaterally significantly limits their is evaluation. High-grade stenoses seen involving articular artery and posterior tibial artery on the left. On the right the trifurcation vessels are felt grossly patent. 3. Small left effusion with associated passive atelectasis. Elijah James Jr., MD Foot X-Ray 02/17/18 0000 Signed Impressions: Service Date/Time: Saturday, February 17, 2018 16:46 - CONCLUSION: Negative fast myelitis Gene Garcia MD FACR Objective Remarks HEENT/Neuro: Pallor present, no icterus, tongue moist, ARLIN, awake, disoriented, speech improved though remains disoriented to time place. No involuntary movements noted, following simple commands Neck: No JVD Chest/pulmonary: Good air entry bilaterally though decreased at bases, scattered rhonchi, no wheezing or crackles Cardiovascular: Sternotomy scar noted. S1-S2 regular no gallop or murmur GI/abdomen: Soft, vague diffuse tenderness, bowel sounds sluggish. PD catheter in place Extremities: . 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 Left foot with gangrene of the great toe with surrounding erythema A/P Assessment and Plan 57-year-old male with Encephalopathy: ? uremia, sepsis Tremors/involuntary movement Suspected sepsis Cellulitis around left great toe Possible aspiration pneumonia Possible PD catheter related peritonitis Dry Gangrene: - s/p burn to left foot w/ necrotic wound to left great toe, blisters to left 2nd toe and dorsum of left foot. ESRD on peritoneal dialysis PVD CAD status post previous CABG Hypertension Plan: Neuro: Head CT without any evidence of bleed. Encephalomalacia appears to be old. EEG with no evidence of seizure activity per discussion with the nuclear fuel enrichment technician and appears to be abnormal secondary to metabolic encephalopathy. Neurology Dr. Don consulted for further evaluation of encephalopathy. MRI brain with no acute findings. Small area of left occipital lobe encephalomalacia. Avoid sedatives and narcotics if possible. Cardiovascular: Continue antihypertensives and cardiac medications. Pulmonary: Supplemental O2 as needed. Bronchodilators as needed. Currently protecting airway. GI/liver: advance to renal diet as tolerated. CT abdomen pelvis with no acute pathology noted Renal/: On peritoneal dialysis, being followed by nephrology-Dr. Franks. ID: Follow-up cultures. ID consult requested by Dr. Lin. Antibiotics per ID. Foot X-ray negative for osteomyelitis. Dr. Magdaleno from podiatry following for gangrenous left great toe. Heme: Follow CBC Endocrine: SSI for glycemic control as needed. Prophylaxis: Subcutaneous heparin for DVT prophylaxis. Critical care will sign off at this time. Further recommendations per Dr. Lin , Podiatry and ID Elmo Almonte MD Feb 26, 2018 10:13
--- NOTE | 2018-02-26 16:02 | HHI.NPPN ---
Subjective General Problems: Anemia, Heart Disease Renal Failure: End Stage Renal Disease History of Present Illness Patient is lethargic and confused. Additional Remarks Patient is more awake, remain confused, and following some commands. Review of Systems General Constitutional: Chills Objective Data Data 02/26/18 02/27/18 19:00 07:00 Output Total 1113 ml Balance -1113 ml Peritoneal Fluid 1113 ml Vital Signs Date Time Temp Pulse Resp B/P (MAP) Pulse Ox O2 Delivery O2 Flow Rate FiO2 02/26/18 13:00 96 02/26/18 13:00 96 16 189/77 (114) 97 02/26/18 12:00 98.2 98 16 194/86 (122) 96 02/26/18 12:00 Nasal Cannula 2.00 02/26/18 12:00 98 02/26/18 11:20 100 Nasal Cannula 2.00 02/26/18 10:15 89 02/26/18 10:00 89 02/26/18 10:00 89 12 131/55 (80) 99 02/26/18 09:45 91 12 143/67 (92) 99 02/26/18 09:45 91 02/26/18 09:30 97 02/26/18 09:30 97 12 163/72 (102) 99 02/26/18 09:15 102 02/26/18 09:15 102 13 182/77 (112) 97 02/26/18 09:00 108 02/26/18 09:00 108 21 184/83 (116) 96 02/26/18 08:45 103 02/26/18 08:45 103 184/79 (114) 98 02/26/18 08:30 104 10 184/77 (112) 99 02/26/18 08:30 104 02/26/18 08:15 104 5 184/76 (112) 99 02/26/18 08:15 104 02/26/18 08:00 98.6 104 5 171/73 (105) 98 02/26/18 08:00 98 Nasal Cannula 2.00 02/26/18 08:00 104 02/26/18 06:00 86 02/26/18 04:10 98.6 89 14 112/76 (88) 100 02/26/18 04:04 22 02/26/18 04:00 89 02/26/18 04:00 100 Nasal Cannula 2.00 02/26/18 00:10 98.4 87 14 156/76 (102) 100 02/26/18 00:00 87 02/26/18 00:00 100 Nasal Cannula 2.00 02/25/18 22:00 88 02/25/18 20:10 98.7 87 12 177/81 (113) 100 02/25/18 20:00 100 Nasal Cannula 2.00 02/25/18 20:00 87 02/25/18 20:00 98.7 87 12 177/81 (113) 100 02/25/18 18:00 84 9 100 02/25/18 18:00 84 02/25/18 17:00 79 9 100 -: 02/25/18 1305 02/25/18 1305 Physical Exam General Appearance Remarks Awake, but confused, not in distress. Neck Neck Exam: Neck Supple Pulmonary Resp Exam: Breath Sounds Equal, No Distress Cardiology CV Exam: Regular, Normal Sinus Rhythm Gastrointestinal/Abdomen GI Exam: Soft, Non-Tender, Bowel Sounds Present Genitourinary Exam: Flank Non-Tender Integumentary Skin Exam: Lesion(s) Extremeties Extremities Exam: Trace Edema Neurologic Neuro Exam: Alert Assessment/Plan Discussed Condition With: Patient Assessment Summary: End Stage Renal Disease Electrolyte Assessment: Hyponatremia Problem List: (1) ESRD on peritoneal dialysis ICD Codes: N18.6 - End stage renal disease; Z99.2 - Dependence on renal dialysis Plan: ESRD on PD nightly CTA noted. Plan Patient is more responsive this morning. PD fluid is clear, WBC was 143, mainly monocytes. Continue PD nightly Continue Phoslo. ID is following, given Vanco. again on 02/26. On Cefepime. CT abd. and MRI brain results noted. D/W the at bed side. PD cultures negative so far also bC remain negative. ID is following. Continue same APD. (2) HTN (hypertension) ICD Codes: I10 - Essential (primary) hypertension Plan: Coreg and nifedipine added Clonidine 0.1 PRN (3) Dry gangrene ICD Codes: I96 - Gangrene, not elsewhere classified Status: Acute Plan: History of burn to left foot Podiatry and surgery consulted Vascular surgery consulted. Problem Qualifiers (1) HTN (hypertension): Qualified Codes: I10 - Essential (primary) hypertension Kishore Franks MD Feb 26, 2018 16:02
[2018-02-26] MEDS: LACTULOSE SYRUP 20 GM/30 ML CUP PO PRN (18:47)
[2018-02-26] MEDS: LABETALOL HCL 100 MG/20 ML VIAL IV PUSH PRN (19:02)
[2018-02-27] VITALS (18 sets, daily range): BP systolic 157–201; BP diastolic 59–92; PULSE 86–105; RESP 10–24; TEMP 97.9–98.6; O2SAT 94–98
[2018-02-27] MEDS: MORPHINE SULFATE 2 MG/ML SYRINGE IV PUSH PRN ×2 (00:08→06:12)
[2018-02-27] MEDS: cloNIDine HCL 0.1 MG TAB PO PRN ×2 (00:31→19:17)
[2018-02-27] MEDS: ACETAMINOPHEN/HYDROcodone 325 MG/5 MG TAB PO PRN ×2 (00:32→22:16)
[2018-02-27] MEDS: LABETALOL HCL 100 MG/20 ML VIAL IV PUSH PRN ×2 (00:33→06:09)
[2018-02-27] MEDS: ONDANSETRON HCL 4 MG/2 ML VIAL IVP PRN ×2 (02:20→10:17)
[2018-02-27] MEDS: CHLORHEXIDINE GLUCONATE 2 % 1 PACK (2 CLOTHS)(taper/protocol) TOPICAL SCH ×2 (04:00→22:21)
[2018-02-27] MEDS: SODIUM CHLOR 0.9% 1000 ML INJ 1,000 ML IV SCH (04:30)
[2018-02-27] MEDS: hydrALAZINE HCL 20 MG/ML VIAL IV PUSH PRN ×2 (04:31→11:25)
[2018-02-27] MEDS: INSULIN ASPART SUPPLEMENTAL SCALE SQ SCH ×4 (08:00→21:00)
--- NOTE | 2018-02-27 08:55 | HHI.FPPN ---
Subjective Remarks more alert no tremors no c/o stable per RN Objective Vitals Vital Signs Date Time Temp Pulse Resp B/P (MAP) Pulse Ox O2 Delivery O2 Flow Rate FiO2 02/27/18 06:00 105 02/27/18 04:10 98.3 86 11 157/59 (91) 95 02/27/18 04:00 90 02/27/18 04:00 97 02/27/18 02:00 96 02/27/18 00:10 98.4 101 24 182/77 (112) 96 02/27/18 00:00 100 02/27/18 00:00 98 02/26/18 22:00 96 02/26/18 21:30 97 Nasal Cannula 2.00 02/26/18 20:10 97.2 97 18 174/75 (108) 95 02/26/18 20:00 96 02/26/18 20:00 98 Nasal Cannula 2.00 02/26/18 18:12 96 02/26/18 18:00 95 02/26/18 17:00 91 16 172/74 (106) 97 02/26/18 17:00 91 02/26/18 16:00 97 Nasal Cannula 02/26/18 16:00 98.5 97 20 177/85 (115) 98 02/26/18 16:00 97 02/26/18 15:00 92 02/26/18 14:59 92 02/26/18 14:00 95 02/26/18 13:00 96 02/26/18 13:00 96 16 189/77 (114) 97 02/26/18 12:00 98.2 98 16 194/86 (122) 96 02/26/18 12:00 Nasal Cannula 2.00 02/26/18 12:00 98 02/26/18 11:20 100 Nasal Cannula 2.00 02/26/18 10:15 89 02/26/18 10:00 89 02/26/18 10:00 89 12 131/55 (80) 99 02/26/18 09:45 91 12 143/67 (92) 99 02/26/18 09:45 91 02/26/18 09:30 97 02/26/18 09:30 97 12 163/72 (102) 99 02/26/18 09:15 102 02/26/18 09:15 102 13 182/77 (112) 97 02/26/18 09:00 108 02/26/18 09:00 108 21 184/83 (116) 96 I/O 02/26/18 02/26/18 02/26/18 02/27/18 02/27/18 02/27/18 07:00 15:00 23:00 07:00 15:00 23:00 Intake Total 1070 ml 100 ml Output Total 1113 ml 450 ml 200 ml 1124 ml Balance -1113 ml 620 ml -100 ml -1124 ml Intake Oral 720 ml 100 ml IV Total 350 ml Output Urine Total 450 ml 200 ml Stool Total 0 ml Peritoneal Fluid 1113 ml 1124 ml # Bowel Movements 0 0 Result Diagram: 02/25/18 1305 02/25/18 1305 Objective Remarks GENERAL: increased overall weakness, SKIN: Warm and dry. HEAD: Atraumatic. Normocephalic. EYES: Pupils equal and round. No scleral icterus. No injection or drainage. ENT: No nasal bleeding or discharge. Mucous membranes pink and moist. NECK: Trachea midline. No JVD. CARDIOVASCULAR: Regular rate and rhythm. RESPIRATORY: No accessory muscle use. Clear to auscultation. Breath sounds equal bilaterally. GASTROINTESTINAL: Abdomen soft, non-tender, nondistended. Hepatic and splenic margins not palpable. MUSCULOSKELETAL: Extremities without clubbing, cyanosis, or edema. wounds at feet are stable. NEUROLOGICAL: Awake and alert x one. No obvious cranial nerve deficits. Motor grossly within normal limits. 1 out of 5 muscle strength in the arms and legs. Normal speech. PSYCHIATRIC: Appropriate mood and affect; insight and judgment normal. Medications and IVs Current Medications Medications (Trade) Dose Ordered Sig/Cesar Route Start Time Stop Time Status Last Admin Cefepime HCl 1000 mg/Sodium Chloride 100 ml @ 200 mls/hr DAILY IV 02/18/18 09:00 02/26/18 08:47 (NS Flush) 2 ml UNSCH PRN IV FLUSH 02/17/18 20:15 (NS Flush) 2 ml BID IV FLUSH 02/17/18 21:00 02/26/18 23:36 (Zofran Inj) 4 mg Q6H PRN IVP 02/17/18 20:15 02/27/18 02:20 (Heparin Inj) 5,000 units Q12H SQ 3/24/18 09:00 02/26/18 20:07 (Tylenol) 650 mg Q6H PRN PO 02/17/18 20:15 02/18/18 00:37 ([place] 5-325 Mg) 1 tab Q4H PRN PO 02/17/18 20:15 02/27/18 00:32 (Morphine Inj) 2 mg Q3H PRN IV PUSH 02/17/18 20:15 02/27/18 06:12 (Jacqui-Colace) 1 tab BID PO 02/17/18 21:00 02/26/18 20:07 (Milk Of Magnesia Liq) 30 ml Q12H PRN PO 02/17/18 20:15 (Senokot) 17.2 mg Q12H PRN PO 02/17/18 20:15 (Dulcolax Supp) 10 mg DAILY PRN RECTAL 02/17/18 20:15 (Lactulose Liq) 30 ml DAILY PRN PO 02/17/18 20:15 02/26/18 18:47 (Imdur) 60 mg DAILY PO 02/18/18 09:00 02/26/18 08:47 (Ativan) 1 mg BID PRN PO 02/17/18 23:15 02/25/18 20:13 (Theragran M Tab) 1 tab DAILY PO 02/18/18 09:00 02/26/18 08:47 (Ambien) 10 mg HS PRN PO 02/17/18 23:15 02/18/18 21:58 (D50w (Vial) Inj) 50 ml UNSCH PRN IV PUSH 02/18/18 00:15 (Glucagon Inj) 1 mg UNSCH PRN OTHER 02/18/18 00:15 (NovoLOG SUPPLEMENTAL SCALE) 1 ACHS SLIDING SCALE SQ 02/18/18 08:00 02/26/18 21:00 (Heparin Inj) 1,000 units WITH DIALYSIS PRN XX 02/18/18 11:00 (NS Flush) 10 ml UNSCH PRN IV FLUSH 02/18/18 11:00 (Santyl Oint) 1 applic DAILY TOPICAL 02/19/18 09:00 02/26/18 08:48 (Phoslo) 2,001 mg TID PO 02/19/18 18:00 02/26/18 17:33 (Catapres) 0.1 mg Q6H PRN PO 02/19/18 17:15 02/27/18 00:31 (Coreg) 12.5 mg BID PO 02/21/18 21:00 02/26/18 20:07 Sodium Chloride 1,000 ml @ 30 mls/hr Q24H IV 02/24/18 10:00 02/27/18 04:30 (Trandate Inj) 10 mg Q4H PRN IV PUSH 02/24/18 21:00 02/27/18 06:09 (Apresoline Inj) 20 mg Q4H PRN IV PUSH 02/24/18 21:00 02/27/18 04:31 Miscellaneous Information Patient in critical care unit? Ass... Q361D .XX 02/24/18 22:15 02/24/18 22:15 (Chlorhexidine 2% Cloth) 3 pack DAILY@04 TOPICAL 02/25/18 04:00 03/01/18 04:01 02/27/18 04:00 (Chlorhexidine 2% Cloth) 3 pack UNSCH PRN TOPICAL 02/24/18 22:15 03/01/18 22:02 Nicardipine HCl 25 mg/Sodium Chloride 250 ml @ 50 mls/hr TITRATE PRN IV 02/25/18 00:30 02/25/18 05:13 A/P Assessment and Plan Assessment and Plan- -Encephalopathy: ? uremia, sepsis -Tremors/involuntary movement -Suspected sepsis -Cellulitis around left great toe -Possible aspiration pneumonia -Possible PD catheter related peritonitis -Dry Gangrene: - s/p burn to left foot w/ necrotic wound to left great toe, blisters to left 2nd toe and dorsum of left foot. -ESRD on peritoneal dialysis -PVD -CAD status post previous CABG -Hypertension Plan: Transfer out of ICU. Neuro: Head CT without any evidence of bleed. Encephalomalacia appears to be old. EEG - abnormal secondary to metabolic encephalopathy. Neurology Dr. Don consulted for further evaluation of encephalopathy. MRI brain with no acute findings. Small area of left occipital lobe encephalomalacia. Avoid sedatives and narcotics if possible. Cardiovascular: Continue antihypertensives and cardiac medications. Pulmonary: Supplemental O2 as needed. Bronchodilators as needed. Currently protecting airway. GI/liver: advance to renal diet as tolerated. CT abdomen pelvis with no acute pathology noted Renal/: On peritoneal dialysis, being followed by nephrology-Dr. Franks. ID: Follow-up cultures. Antibiotics per ID. Foot X-ray negative for osteomyelitis. Dr. Magdaleno from podiatry following for gangrenous left great toe. Heme: Follow CBC Endocrine: SSI for glycemic control as needed. Prophylaxis: Subcutaneous heparin for DVT prophylaxis. Problem List: (1) Dry gangrene ICD Codes: I96 - Gangrene, not elsewhere classified Status: Acute (2) HTN (hypertension) ICD Codes: I10 - Essential (primary) hypertension (3) ESRD on peritoneal dialysis ICD Codes: N18.6 - End stage renal disease; Z99.2 - Dependence on renal dialysis Problem Qualifiers (1) HTN (hypertension): Qualified Codes: I10 - Essential (primary) hypertension Jarad Lin MD Feb 27, 2018 08:55
--- NOTE | 2018-02-27 09:47 | HHI.IDPN ---
Subjective Subjective Remarks is a 57 y/o CM with PMHx of ESRD on Peritoneal dialysis ( in hospital), HTN, ? Peripheral Neuropathy,CAD s/p CABG. 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 He denied any fever, chills, night sweats. He was reportedly sent to ED by wound care MD. Upon arrival to the ED patient was found to have a necrotic left 1st and 2nd toe. Podiatry (), (Vascular surgery) have been following the patient along with Nephrology (Nephrology). On arrival, BP 134/100, HR 80, O2 sat 98% on RA, Afebrile. WBC normal. ESR 49. K+ 6.5. Foot X-ray negative for Osteomyelitis. Vascular surgery did not think patient needed any surgery. Per RN patient was to be discharged but discharge held yday due to Altered Mental Status. saw patient this am and CT head was obtained which showed no new stroke or bleed just chronic encephalomalacia. EEG was ordered and is being changed to STAT by me. Patient has continued to receive PD in hospital and last session was last night. ID consulted for Evaluation and M'ment of Possible Sepsis, Pneumonia. Notes reviewed Temps ok Undergoes PD. Awake and answered my questions: Year, His name. Could not tell me where he was or other things like president of [place] etc. He sometimes repeated same answers when asked a different question. No jerky movements noted today BC negative PD fluid negative WBC normal Antibiotics Current Medications Medications (Trade) Dose Ordered Sig/Cesar Route Start Time Stop Time Status Last Admin Cefepime HCl 1000 mg/Sodium Chloride 100 ml @ 200 mls/hr DAILY IV 02/18/18 09:00 02/25/18 08:01 (NS Flush) 2 ml UNSCH PRN IV FLUSH 02/17/18 20:15 (NS Flush) 2 ml BID IV FLUSH 02/17/18 21:00 02/25/18 20:32 (Zofran Inj) 4 mg Q6H PRN IVP 02/17/18 20:15 02/25/18 00:33 (Heparin Inj) 5,000 units Q12H SQ 02/18/18 09:00 02/25/18 20:13 (Tylenol) 650 mg Q6H PRN PO 02/17/18 20:15 02/18/18 00:37 ([place] 5-325 Mg) 1 tab Q4H PRN PO 02/17/18 20:15 (Morphine Inj) 2 mg Q3H PRN IV PUSH 02/17/18 20:15 02/26/18 06:34 (Jacqui-Colace) 1 tab BID PO 02/17/18 21:00 02/25/18 20:13 (Milk Of Magnesia Liq) 30 ml Q12H PRN PO 02/17/18 20:15 (Senokot) 17.2 mg Q12H PRN PO 02/17/18 20:15 (Dulcolax Supp) 10 mg DAILY PRN RECTAL 02/17/18 20:15 (Lactulose Liq) 30 ml DAILY PRN PO 02/17/18 20:15 (Imdur) 60 mg DAILY PO 02/18/18 09:00 02/25/18 08:01 (Ativan) 1 mg BID PRN PO 02/17/18 23:15 02/25/18 20:13 (Theragran M Tab) 1 tab DAILY PO 02/18/18 09:00 02/25/18 08:01 (Ambien) 10 mg HS PRN PO 02/17/18 23:15 02/18/18 21:58 (D50w (Vial) Inj) 50 ml UNSCH PRN IV PUSH 02/18/18 00:15 (Glucagon Inj) 1 mg UNSCH PRN OTHER 02/18/18 00:15 (NovoLOG SUPPLEMENTAL SCALE) 1 ACHS SLIDING SCALE SQ 02/18/18 08:00 (Heparin Inj) 1,000 units WITH DIALYSIS PRN XX 02/18/18 11:00 (NS Flush) 10 ml UNSCH PRN IV FLUSH 02/18/18 11:00 (Santyl Oint) 1 applic DAILY TOPICAL 02/19/18 09:00 02/25/18 19:04 (Phoslo) 2,001 mg TID PO 02/19/18 18:00 02/25/18 19:07 (Catapres) 0.1 mg Q6H PRN PO 02/19/18 17:15 02/24/18 22:58 (Coreg) 12.5 mg BID PO 02/21/18 21:00 02/25/18 20:13 Sodium Chloride 1,000 ml @ 84 mls/hr [id number] IV 02/24/18 10:00 02/25/18 21:45 (Trandate Inj) 10 mg Q4H PRN IV PUSH 02/24/18 21:00 02/24/18 22:58 (Apresoline Inj) 20 mg Q4H PRN IV PUSH 02/24/18 21:00 02/26/18 06:32 Miscellaneous Information Patient in critical care unit? Ass... Q361D .XX 02/24/18 22:15 02/24/18 22:15 (Chlorhexidine 2% Cloth) 3 pack DAILY@04 TOPICAL 02/25/18 04:00 03/01/18 04:01 02/26/18 04:00 (Chlorhexidine 2% Cloth) 3 pack UNSCH PRN TOPICAL 02/24/18 22:15 03/01/18 22:02 Nicardipine HCl 25 mg/Sodium Chloride 250 ml @ 50 mls/hr TITRATE PRN IV 02/25/18 00:30 02/25/18 05:13 Lines Line no evidence of infection Past Medical History ESRD on PD HTN Past Surgical History CABG, Cholecystectomy Allergies: Coded Allergies: gabapentin (Unverified Allergy, Mild, Itching, 02/17/18) Objective . Vital Signs Date Time Temp Pulse Resp B/P (MAP) Pulse Ox O2 Delivery O2 Flow Rate FiO2 02/27/18 06:00 105 02/27/18 04:10 98.3 86 11 157/59 (91) 95 02/27/18 04:00 90 02/27/18 04:00 97 02/27/18 02:00 96 02/27/18 00:10 98.4 101 24 182/77 (112) 96 02/27/18 00:00 100 02/27/18 00:00 98 02/26/18 22:00 96 02/26/18 21:30 97 Nasal Cannula 2.00 02/26/18 20:10 97.2 97 18 174/75 (108) 95 02/26/18 20:00 96 02/26/18 20:00 98 Nasal Cannula 2.00 02/26/18 18:12 96 02/26/18 18:00 95 02/26/18 17:00 91 16 172/74 (106) 97 02/26/18 17:00 91 02/26/18 16:00 97 Nasal Cannula 02/26/18 16:00 98.5 97 20 177/85 (115) 98 02/26/18 16:00 97 02/26/18 15:00 92 02/26/18 14:59 92 02/26/18 14:00 95 02/26/18 13:00 96 02/26/18 13:00 96 16 189/77 (114) 97 02/26/18 12:00 98.2 98 16 194/86 (122) 96 02/26/18 12:00 Nasal Cannula 2.00 02/26/18 12:00 98 02/26/18 11:20 100 Nasal Cannula 2.00 02/26/18 10:15 89 02/26/18 10:00 89 02/26/18 10:00 89 12 131/55 (80) 99 02/26/18 09:45 91 12 143/67 (92) 99 02/26/18 09:45 91 02/27/18 02/27/18 02/28/18 15:00 23:00 07:00 Output Total 1124 ml Balance -1124 ml Peritoneal Fluid 1124 ml . Laboratory Tests Test 02/25/18 13:05 White Blood Count 8.2 TH/MM3 Red Blood Count 4.81 MIL/MM3 Hemoglobin 14.1 GM/DL Hematocrit 44.1 % Mean Corpuscular Volume 91.8 FL Mean Corpuscular Hemoglobin 29.4 PG Mean Corpuscular Hemoglobin Concent 32.0 % Red Cell Distribution Width 14.8 % Platelet Count 206 TH/MM3 Mean Platelet Volume 8.2 FL Neutrophils (%) (Auto) 72.5 % Lymphocytes (%) (Auto) 9.2 % Monocytes (%) (Auto) 13.8 % Eosinophils (%) (Auto) 3.2 % Basophils (%) (Auto) 1.3 % Neutrophils # (Auto) 5.9 TH/MM3 Lymphocytes # (Auto) 0.8 TH/MM3 Monocytes # (Auto) 1.1 TH/MM3 Eosinophils # (Auto) 0.3 TH/MM3 Basophils # (Auto) 0.1 TH/MM3 CBC Comment DIFF FINAL Differential Comment Laboratory Tests Test 02/25/18 13:05 Blood Urea Nitrogen 70 MG/DL Creatinine 5.99 MG/DL Random Glucose 111 MG/DL Calcium Level 8.3 MG/DL Sodium Level 130 MEQ/L Potassium Level 4.5 MEQ/L Chloride Level 97 MEQ/L Carbon Dioxide Level 22.9 MEQ/L Anion Gap 10 MEQ/L Estimat Glomerular Filtration Rate 10 ML/MIN Imaging Last Impressions Brain MRI 02/25/18 0000 Signed Impressions: Service Date/Time: Sunday, February 25, 2018 10:36 - CONCLUSION: 1. No acute hemorrhage, mass or infarction. 2. Area of apparent gliosis in the left occipital lobe with no restricted diffusion. Tio Koehler MD Abdomen/Pelvis CT 02/24/18 1159 Signed Impressions: Service Date/Time: Sunday, February 25, 2018 10:16 - CONCLUSION: 1. Peritoneal dialysis catheter in place with small amount of ascitic fluid. 2. Bilateral pleural effusions and consolidation in the posterior lower lobes. Please see chest CT for further details. 3. Unremarkable bowel gas pattern. Tio Koehler MD Head CT 02/24/18 0000 Signed Impressions: Service Date/Time: Saturday, February 24, 2018 10:38 - CONCLUSION: 1. Focal area of decreased signal in the left occipital lobe likely representing an area of encephalomalacia. 2. No acute hemorrhage or mass effect. Tio Koehler MD Chest X-Ray 02/24/18 0000 Signed Impressions: Service Date/Time: Saturday, February 24, 2018 12:03 - CONCLUSION: 1. Cardiomegaly with mild edema pattern. More focal consolidation at the left lung base could represent a superimposed bronchopneumonia. Small effusions. Ian Noyola MD Chest CT 02/24/18 0000 Signed Impressions: Service Date/Time: Sunday, February 25, 2018 10:16 - CONCLUSION: 1. Consolidation in both lower lobes left greater than right. This could represent pneumonia. 2. Bilateral pleural effusions left greater than right. 3. Status post median sternotomy with cardiomegaly and postsurgical change. Tio Koehler MD Abdomen X-Ray 02/24/18 0000 Signed Impressions: Service Date/Time: Saturday, February 24, 2018 12:07 - CONCLUSION: 1. No acute findings within the abdomen. Specifically no free air identified. Ian Noyola MD Aorta w/Runoff CTA 02/21/18 0000 Signed Impressions: Service Date/Time: Wednesday, February 21, 2018 12:39 - CONCLUSION: 1. Diffuse calcified plaque with patent inflow and outflow bilaterally. 2. Severe calcification of the trifurcation vessels bilaterally significantly limits their is evaluation. High-grade stenoses seen involving articular artery and posterior tibial artery on the left. On the right the trifurcation vessels are felt grossly patent. 3. Small left effusion with associated passive atelectasis. Elijah James Jr., MD Foot X-Ray 02/17/18 0000 Signed Impressions: Service Date/Time: Saturday, February 17, 2018 16:46 - CONCLUSION: Negative fast myelitis Gene Garcia MD FACR Physical Exam GENERAL: Awake and alert, answered my questions, follows commands, NAD SKIN: No rashes, ecchymoses or lesions. Cool and dry. HEAD: Atraumatic. Normocephalic. No temporal or scalp tenderness. EYES: Pupils equal round and reactive. No scleral icterus. No injection or drainage. ENT: Secretions pooling in oral cavity. NECK: Trachea midline. Supple, nontender, no meningeal signs. CARDIOVASCULAR: HS audible. Midline CABG scar intact. RESPIRATORY: Bilateral wheezing and basilar creps. Decreased AE bilaterally. GASTROINTESTINAL: Abdomen soft, PD cath site ok. Abdomen min tenderness, no rigidity. MUSCULOSKELETAL: Left great toe with necrotic area and surrounding erythema. NEUROLOGICAL: Awake, and alert, following commands Psych Calm and cooperative this morning IV line sites with no e.o infection. Assessment & Plan Remarks Possible Sepsis. Left great toe and 2nd toe gangrene possible cellulitis. PD cath related peritonitis possible. Possible Aspiration Pneumonia. acute metabolic encephalopathy: ? seizures, ? uremia, sepsis. - better today ESRD on PD. HTN CAD s/p CABG. Recs Continue Cefepime 1 gm IV daily. No further vanco doses. Follow peritoneal fluid studies. MRI negative. Encephalopathy and jerky movts likely metabolic. Follow cultures Monitor progress D/W RN jessica WILKINS MD and . Nichole Almonte MD Feb 27, 2018 09:47
[2018-02-27] MEDS: SODIUM CHLORIDE 0.9% FLUSH 10 ML FLUSH IV FLUSH SCH ×2 (10:04→22:19)
[2018-02-27] MEDS: HEPARIN SODIUM - SQ 10,000 UNITS/ML VIAL SQ SCH ×2 (10:19→22:15)
[2018-02-27] MEDS: CARVEDILOL 12.5 MG TAB PO SCH ×2 (10:19→22:14)
[2018-02-27] MEDS: CALCIUM ACETATE 667 MG CAP PO SCH ×3 (10:20→18:34)
[2018-02-27] MEDS: DOCUSATE SODIUM 50 MG/SENNA 8.6 MG TAB PO SCH ×2 (10:20→22:14)
[2018-02-27] MEDS: ISOSORBIDE MONONITRATE 60 MG CR TAB (IMDUR) PO SCH (10:20)
[2018-02-27] MEDS: MULTIVITAMINS/MINERALS THERAPEUTIC TAB PO SCH (10:20)
[2018-02-27] MEDS: COLLAGENASE OINT 30 GM TUBE TOPICAL SCH (10:20)
[2018-02-27] MEDS: CEFEPIME INJ 1,000 MG in SODIUM CHLORIDE 0.9% INJ 100 ML IV SCH (10:21)
--- NOTE | 2018-02-27 10:57 | HHI.CCPN ---
Subjective Remarks/Hospital Course 02/24: is a 57 y/o CM with PMHx of ESRD on Peritoneal dialysis ( in hospital), HTN, ? Peripheral Neuropathy,CAD s/p CABG. Per review of records it appears that a week OUTFITTER CABIN patient was reportedly repairing a radiator when he injured his left foot. He denied any fever, chills, night sweats. He was reportedly sent to ED by wound care MD. Upon arrival to the ED patient was found to have a necrotic left 1st and 2nd toe. Podiatry (), (Vascular surgery) have been following the patient along with Nephrology (Nephrology). On arrival, BP 134/100, HR 80, O2 sat 98% on RA, Afebrile. WBC normal. ESR 49. K+ 6.5. Foot X-ray negative for Osteomyelitis. Vascular surgery did not think patient needed any surgery. Per RN patient was to be discharged but discharge held yday due to Altered Mental Status. Patient developed altered mental status overnight. saw patient this am and CT head was obtained which showed no new stroke or bleed just chronic encephalomalacia. ID was consulted by Dr. Lin in view of concern for his worsening sepsis causing altered mental status. Patient was noted to have some twitching movements and tremors on ID evaluation and critical care consult was requested in view of concern regarding airway protection and possible etiology of seizures and concern regarding aspiration. I evaluated the patient on the floor. At that time he was completely disoriented, awake with twitching and tremors which appeared to be generalized. He was otherwise maintaining his O2 sats and was awake however not following commands. Stat EEG was started after my evaluation. History was obtained by reviewing records and discussion with nursing staff as well as ID physician. Patient to be transferred to ICU following EEG. Appeared to be protecting airway at the time of my evaluation. 02/25: Drowsy, easily arousable, disoriented. Not in any acute distress. Twitching's still present however decreased compared to yesterday. 02/26: More awake, following commands, gave me his name. Twitching/tremors appear to have improved. Still confused and disoriented. Cannot tell me where he is and cannot tell me his home address. Cannot tell me the date month or year. Laying in bed not in any acute distress. 02/27: Awake and alert. Knows his name and tells me it's 2018. Mental status gradually improving. Not in any acute distress. Denies any shortness of breath. Tolerating by mouth diet. Objective Vital Signs Date Time Temp Pulse Resp B/P (MAP) Pulse Ox O2 Delivery O2 Flow Rate FiO2 02/27/18 10:00 98 02/27/18 04:10 98.3 11 157/59 (91) 95 02/26/18 21:30 Nasal Cannula 2.00 Intake and Output 02/27/18 02/27/18 02/28/18 08:00 16:00 00:00 Intake Total 100 ml Output Total 1324 ml Balance -1224 ml Result Diagram: 02/25/18 1305 02/25/18 1305 Imaging Last Impressions Head CT 02/24/18 0000 Signed Impressions: Service Date/Time: Saturday, February 24, 2018 10:38 - CONCLUSION: 1. Focal area of decreased signal in the left occipital lobe likely representing an area of encephalomalacia. 2. No acute hemorrhage or mass effect. Tio Koehler MD Chest X-Ray 02/24/18 0000 Signed Impressions: Service Date/Time: Saturday, February 24, 2018 12:03 - CONCLUSION: 1. Cardiomegaly with mild edema pattern. More focal consolidation at the left lung base could represent a superimposed bronchopneumonia. Small effusions. Ian Noyola MD Abdomen X-Ray 02/24/18 0000 Signed Impressions: Service Date/Time: Saturday, February 24, 2018 12:07 - CONCLUSION: 1. No acute findings within the abdomen. Specifically no free air identified. Ian Noyola MD Aorta w/Runoff CTA 02/21/18 0000 Signed Impressions: Service Date/Time: Wednesday, February 21, 2018 12:39 - CONCLUSION: 1. Diffuse calcified plaque with patent inflow and outflow bilaterally. 2. Severe calcification of the trifurcation vessels bilaterally significantly limits their is evaluation. High-grade stenoses seen involving articular artery and posterior tibial artery on the left. On the right the trifurcation vessels are felt grossly patent. 3. Small left effusion with associated passive atelectasis. Elijah James Jr., MD Foot X-Ray 02/17/18 0000 Signed Impressions: Service Date/Time: Saturday, February 17, 2018 16:46 - CONCLUSION: Negative fast myelitis Gene Garcia MD FACR Objective Remarks HEENT/Neuro: Pallor present, no icterus, tongue moist, ARLIN, awake, knows his name and knows of as 2018.. No involuntary movements noted, following simple commands Neck: No JVD Chest/pulmonary: Good air entry bilaterally though decreased at bases, scattered rhonchi, no wheezing or crackles Cardiovascular: Sternotomy scar noted. S1-S2 regular no gallop or murmur GI/abdomen: Soft, vague diffuse tenderness, bowel sounds sluggish. PD catheter in place Extremities: . 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 Left foot with gangrene of the great toe with surrounding erythema A/P Assessment and Plan 57-year-old male with Encephalopathy: ? uremia, sepsis Tremors/involuntary movement Suspected sepsis Cellulitis around left great toe Possible aspiration pneumonia Possible PD catheter related peritonitis Dry Gangrene: - s/p burn to left foot w/ necrotic wound to left great toe, blisters to left 2nd toe and dorsum of left foot. ESRD on peritoneal dialysis PVD CAD status post previous CABG Hypertension Plan: Neuro: Head CT without any evidence of bleed. Encephalomalacia appears to be old. EEG with no evidence of seizure activity per discussion with the desktop technician and appears to be abnormal secondary to metabolic encephalopathy. Neurology Dr. Don consulted for further evaluation of encephalopathy. MRI brain with no acute findings. Small area of left occipital lobe encephalomalacia. Avoid sedatives and narcotics if possible. Cardiovascular: Continue antihypertensives and cardiac medications. Pulmonary: Supplemental O2 as needed. Bronchodilators as needed. Currently protecting airway. GI/liver: advance to renal diet as tolerated. CT abdomen pelvis with no acute pathology noted Renal/: On peritoneal dialysis, being followed by nephrology-Dr. Franks. ID: Follow-up cultures. ID consult requested by Dr. Lin. Antibiotics per ID. Foot X-ray negative for osteomyelitis. Dr. Magdaleno from podiatry following for gangrenous left great toe. Heme: Follow CBC Endocrine: SSI for glycemic control as needed. Prophylaxis: Subcutaneous heparin for DVT prophylaxis. Critical care will sign off at this time. Further recommendations per Dr. Lin , Podiatry and ID Elmo Almonte MD Feb 27, 2018 10:57
--- NOTE | 2018-02-27 17:58 | PD.POD ---
Subjective Pain score: 0 Remarks Patient appears to be alert awake however not making much sense, fragmented sentences that do not correlate with his medical care Past Med/Surg/Social History Past Medical History HEENT: REPORTS HX OF: Cataracts Endocrine: REPORTS HX OF: Diabetes mellitus (diet controlled) Cardiovascular: REPORTS HX OF: Hypertension, Other CV history Genitourinary: REPORTS HX OF: Kidney disease Musculoskeletal: REPORTS HX OF: Fractures (right arm, left leg, 4 fingers on left hand, 2 toes on each foot.) Psychiatric: REPORTS HX OF: Anxiety Past Surgical History Respiratory: REPORTS HX OF: Other chest surgery Gastrointestinal: REPORTS HX OF: Cholecystectomy Musculoskeletal: REPORTS HX OF: Other musculoskeletal srg (right foot) Social History Smoking Status: Never Smoker Objective Vital Signs Vital Signs Date Time Temp Pulse Resp B/P (MAP) Pulse Ox O2 Delivery O2 Flow Rate FiO2 02/27/18 16:00 98.6 95 20 201/92 (128) 96 02/27/18 12:00 98.1 97 19 189/84 (119) 94 02/27/18 10:00 98 02/27/18 10:00 98 18 191/78 (115) 96 02/27/18 09:01 97 18 157/80 (105) 97 02/27/18 08:00 94 02/27/18 08:00 98.4 94 10 158/71 (100) 95 02/27/18 07:00 96 15 179/77 (111) 95 02/27/18 06:15 91 15 170/75 (106) 95 02/27/18 06:00 105 02/27/18 06:00 105 24 02/27/18 05:49 99 17 184/76 (112) 95 02/27/18 05:00 100 19 96 02/27/18 04:10 98.3 86 11 157/59 (91) 95 02/27/18 04:00 90 02/27/18 04:00 97 02/27/18 02:00 96 02/27/18 00:10 98.4 101 24 182/77 (112) 96 02/27/18 00:00 100 02/27/18 00:00 98 02/26/18 22:00 96 02/26/18 21:30 97 Nasal Cannula 2.00 02/26/18 20:10 97.2 97 18 174/75 (108) 95 02/26/18 20:00 96 02/26/18 20:00 98 Nasal Cannula 2.00 02/26/18 18:12 96 02/26/18 18:00 95 Coded Allergies: gabapentin (Unverified Allergy, Mild, Itching, 02/17/18) Medications and IVs Administered Medications Medications (Trade) Dose Ordered Sig/Cesar Route PRN Reason Start Time Stop Time Status Last Admin Dose Admin Cefepime HCl 1000 mg/Sodium Chloride 100 ml @ 200 mls/hr DAILY IV 02/18/18 09:00 02/27/18 10:21 Sodium Chloride (NS Flush) 2 ml BID IV FLUSH 02/17/18 21:00 02/27/18 10:04 Ondansetron HCl (Zofran Inj) 4 mg Q6H PRN IVP NAUSEA OR VOMITING 02/17/18 20:15 02/27/18 10:17 Heparin Sodium (Porcine) (Heparin Inj) 5,000 units Q12H SQ 02/18/18 09:00 02/27/18 10:19 Acetaminophen (Tylenol) 650 mg Q6H PRN PO FEVER/PAIN SCALE 1 TO 2 02/17/18 20:15 02/18/18 00:37 Acetaminophen/ Hydrocodone Bitart ([place] 5-325 Mg) 1 tab Q4H PRN PO PAIN SCALE 3 TO 5 02/17/18 20:15 02/27/18 00:32 Morphine Sulfate (Morphine Inj) 2 mg Q3H PRN IV PUSH Pain 6-10 02/17/18 20:15 02/27/18 06:12 Senna/Docusate Sodium (Jacqui-Colace) 1 tab BID PO 02/17/18 21:00 02/27/18 10:20 Lactulose (Lactulose Liq) 30 ml DAILY PRN PO SEVERE CONSITIPATION 02/17/18 20:15 02/26/18 18:47 Isosorbide Mononitrate (Imdur) 60 mg DAILY PO 02/18/18 09:00 02/27/18 10:20 Lorazepam (Ativan) 1 mg BID PRN PO ANXIETY 02/17/18 23:15 02/25/18 20:13 Multivitamins/ Minerals Therapeutic (Theragran M Tab) 1 tab DAILY PO 02/18/18 09:00 02/27/18 10:20 Zolpidem Tartrate (Ambien) 10 mg HS PRN PO INSOMNIA 02/17/18 23:15 02/18/18 21:58 Insulin Aspart (NovoLOG SUPPLEMENTAL SCALE) 1 ACHS SLIDING SCALE SQ 02/18/18 08:00 02/26/18 21:00 Collagenase (Santyl Oint) 1 applic DAILY TOPICAL 02/19/18 09:00 02/27/18 10:20 Calcium Acetate (Phoslo) 2,001 mg TID PO 02/19/18 18:00 02/27/18 13:50 Clonidine (Catapres) 0.1 mg Q6H PRN PO SBP>160, DBP>90 02/19/18 17:15 02/27/18 00:31 Carvedilol (Coreg) 12.5 mg BID PO 02/21/18 21:00 02/27/18 10:19 Sodium Chloride 1,000 ml @ 30 mls/hr Q24H IV 02/24/18 10:00 02/27/18 04:30 Labetalol HCl (Trandate Inj) 10 mg Q4H PRN IV PUSH SBP>160, DBP>90 02/24/18 21:00 02/27/18 06:09 Hydralazine HCl (Apresoline Inj) 20 mg Q4H PRN IV PUSH SBP>160, DBP>90 02/24/18 21:00 02/27/18 11:25 Miscellaneous Information Patient in critical care unit? Ass... Q361D .XX 02/24/18 22:15 02/24/18 22:15 Chlorhexidine Gluconate (Chlorhexidine 2% Cloth) 3 pack DAILY@04 TOPICAL 02/25/18 04:00 03/01/18 04:01 02/27/18 04:00 Nicardipine HCl 25 mg/Sodium Chloride 250 ml @ 50 mls/hr TITRATE PRN IV Blood pressure management 02/25/18 00:30 02/25/18 05:13 Other Results Last 72 hours Impressions Brain MRI 02/25/18 0000 Signed Impressions: Service Date/Time: Sunday, February 25, 2018 10:36 - CONCLUSION: 1. No acute hemorrhage, mass or infarction. 2. Area of apparent gliosis in the left occipital lobe with no restricted diffusion. Tio Koehler MD Physical Exam General appearance: comfortable Nutritional status: normal Orientation: person Details Well-healed right transmetatarsal amputation Left foot with distal hallux dry gangrene with possible progressing wet margin no odor minimal redness localized to the hallux, dorsal half of left second digit with ischemic changes and early gangrenous changes, full-thickness fibrotic ulcer dorsal aspect of the foot measuring approximately 3 cm 2 cm, superficial eschar of the anterior ankle. The foot appears to be warm sensation intact only deep pressure light touch appears to be absent, no soft tissue emphysema minimal cellulitis noted no edema noted Assessment & Plan A/P Left hallux and second digit gangrene, dorsal foot ulcer. The patient would likely need amputation of the first and second digit with debridement of ulcer. I will discuss case with vascular before I proceed. 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 Continue wound care and antibiotics. Fermin Roldan DPM Feb 27, 2018 17:58
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
[2018-02-27] MEDS: LORazepam 1 MG TAB PO PRN (23:20)
[2018-02-28] VITALS (8 sets, daily range): BP systolic 142–222; BP diastolic 61–122; PULSE 82–100; RESP 16–21; TEMP 96.7–98; O2SAT 96–98
[2018-02-28] MEDS ORDERED: cloNIDine HCL 0.1 MG/24 HR PATCH T-DERMAL PRN (01:45)
[2018-02-28] MEDS: NITROGLYCERIN 2% OINT 1 GM PACKET TOPICAL SCH ×4 (01:46→20:20)
[2018-02-28] MEDS: INSULIN ASPART SUPPLEMENTAL SCALE SQ SCH ×5 (08:00→20:31)
[2018-02-28] MEDS: SODIUM CHLOR 0.9% 1000 ML INJ 1,000 ML IV SCH (08:12)
[2018-02-28] MEDS: SODIUM CHLORIDE 0.9% FLUSH 10 ML FLUSH IV FLUSH SCH ×2 (09:00→20:23)
[2018-02-28] MEDS: DOCUSATE SODIUM 50 MG/SENNA 8.6 MG TAB PO SCH ×2 (09:00→20:23)
[2018-02-28] MEDS: COLLAGENASE OINT 30 GM TUBE TOPICAL SCH (09:00)
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
[2018-02-28] MEDS ORDERED: LORazepam 2 MG/ML VIAL IV PUSH PRN (10:00)
[2018-02-28] MEDS: MULTIVITAMINS/MINERALS THERAPEUTIC TAB PO SCH (10:00)
[2018-02-28] MEDS: CARVEDILOL 12.5 MG TAB PO SCH ×2 (10:00→20:23)
[2018-02-28] MEDS: CALCIUM ACETATE 667 MG CAP PO SCH ×4 (10:00→17:54)
[2018-02-28] MEDS: CEFEPIME INJ 1,000 MG in SODIUM CHLORIDE 0.9% INJ 100 ML IV SCH (10:01)
[2018-02-28] MEDS: HEPARIN SODIUM - SQ 10,000 UNITS/ML VIAL SQ SCH ×2 (10:01→20:23)
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
[2018-02-28] MEDS: LORazepam 1 MG TAB PO PRN (22:07)
[2018-02-28] MEDS: cloNIDine HCL 0.1 MG TAB PO PRN (22:07)
[2018-03-01] VITALS: BP 188/77; PULSE 88; RESP 18; TEMP 98; O2SAT 97
[2018-03-01] MEDS: NITROGLYCERIN 2% OINT 1 GM PACKET TOPICAL SCH ×4 (02:35→21:30)
[2018-03-01] MEDS: CHLORHEXIDINE GLUCONATE 2 % 1 PACK (2 CLOTHS)(taper/protocol) TOPICAL SCH (02:38)
[2018-03-01 04:00] VITALS: BP_SYST 118; BP_DIAS 57; BP_DIAS 61; PULSE 62; PULSE 78; RESP 18; TEMP 97.5; TEMP 98; O2SAT 95
[2018-03-01] MEDS: INSULIN ASPART SUPPLEMENTAL SCALE SQ SCH ×4 (07:31→21:00)
[2018-03-01 07:33] LABS: AUTOMATED NEUTROPHIL # 4.2 TH/MM3 (1.8-7.7); BASOPHIL # 0.2 TH/MM3 (0-0.2); BASOPHIL % 2.7 % (0.0-2.0); EOSINOPHIL # 0.7 TH/MM3 (0-0.4); EOSINOPHIL % 8.8 % (0.0-4.0); HEMATOCRIT 38.7 % (39.0-51.0); HEMOGLOBIN 12.6 GM/DL (13.0-17.0); LYMPH % 17.3 % (9.0-44.0); LYMPHOCYTE # 1.3 TH/MM3 (1.0-4.8); MEAN CELL VOLUME 90.5 FL (80.0-100.0); MEAN CORPUSCULAR HEMOGLOBIN 29.5 PG (27.0-34.0); MEAN CORPUSCULAR HGB CONC 32.7 % (32.0-36.0); MEAN PLATELET VOLUME 8.4 FL (7.0-11.0); MONO % 14.3 % (0.0-8.0); MONOCYTE # 1.1 TH/MM3 (0-0.9); NEUT % 56.9 % (16.0-70.0); PLATELET COUNT 204 TH/MM3 (150-450); RED BLOOD COUNT 4.27 MIL/MM3 (4.50-5.90); RED CELL DISTRIBUTION WIDTH 14.5 % (11.6-17.2); WHITE BLOOD COUNT 7.5 TH/MM3 (4.0-11.0)
[2018-03-01 07:53] VITALS: BP 138/63; PULSE 91; RESP 18; TEMP 97.9; O2SAT 95
[2018-03-01 07:54] LABS: BICARBONATE 25.3 MEQ/L (21.0-32.0); CALCIUM 8.3 MG/DL (8.5-10.1); CREATININE 5.45 MG/DL (0.60-1.30); PHOSPHORUS 3.2 MG/DL (2.5-4.9)
[2018-03-01] MEDS: SODIUM CHLOR 0.9% 1000 ML INJ 1,000 ML IV SCH ×2 (07:58→08:00)
[2018-03-01] MEDS: CEFEPIME INJ 1,000 MG in SODIUM CHLORIDE 0.9% INJ 100 ML IV SCH (08:03)
[2018-03-01] MEDS: CARVEDILOL 12.5 MG TAB PO SCH ×2 (08:03→21:30)
[2018-03-01] MEDS: MULTIVITAMINS/MINERALS THERAPEUTIC TAB PO SCH (08:04)
[2018-03-01] MEDS: ISOSORBIDE MONONITRATE 30 MG CR TAB (IMDUR) PO SCH (08:04)
[2018-03-01] MEDS: HEPARIN SODIUM - SQ 10,000 UNITS/ML VIAL SQ SCH ×2 (08:04→21:31)
[2018-03-01] MEDS: DOCUSATE SODIUM 50 MG/SENNA 8.6 MG TAB PO SCH ×2 (08:04→21:30)
[2018-03-01] MEDS: SODIUM CHLORIDE 0.9% FLUSH 10 ML FLUSH IV FLUSH SCH ×2 (08:05→21:30)
[2018-03-01] MEDS: COLLAGENASE OINT 30 GM TUBE TOPICAL SCH ×2 (08:05→09:00)
[2018-03-01] MEDS: CALCIUM ACETATE 667 MG CAP PO SCH ×5 (08:05→18:21)
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
[2018-03-01 12:00] VITALS: BP 174/74; PULSE 94; RESP 18; TEMP 100; O2SAT 95
--- NOTE | 2018-03-01 14:23 | PD.CAR.PN ---
CVT Progress Note Subjective/Hospital Course: Patient seen full consult dictated Thanks J 02/22/2018 Patient with diffuse peripheral vascular disease. I reviewed the CTA with runoff. CTA with runoff confirms the clinical impression and findings. Patient has patent vessels and no hemodynamically significant stenosis in the inflow tract has a palpable pulses. Once we get to the level of the knees patient has very severe diffuse calcifications of the vessels but no hemodynamically significant stenosis with two-vessel runoff to each foot Based on the above there is no unreconstructable vascular disease present in either leg and this is simply reflection of long-standing atherosclerotic diabetic pattern 03/01/2018 Patient remains in the hospital for unrelated medical reasons As above noted patient does not have any reconstructable disease amiable to either open or endovascular approach His vascular disease is diffuse and involves all 3 vessels below the level of the knee Nothing to add to care from vascular point We will sign off at this time and if further help needed please reconsult Objective: Vital Signs Date Time Temp Pulse Resp B/P (MAP) Pulse Ox O2 Delivery O2 Flow Rate FiO2 03/01/18 12:00 100.0 94 18 174/74 (107) 95 03/01/18 07:53 97.9 91 18 138/63 (88) 95 Manual Cuff/Auscultation 03/01/18 04:00 98.0 78 18 118/57 (77) 95 03/01/18 00:00 98.0 88 18 188/77 (114) 97 02/28/18 20:19 97.3 93 16 98 192/122 (145) 02/28/18 16:00 97.7 86 20 184/78 (113) 97 Labs: Laboratory Tests Test 03/01/18 06:57 White Blood Count 7.5 TH/MM3 (4.0-11.0) Red Blood Count 4.27 MIL/MM3 (4.50-5.90) Hemoglobin 12.6 GM/DL (13.0-17.0) Hematocrit 38.7 % (39.0-51.0) Mean Corpuscular Volume 90.5 FL (80.0-100.0) Mean Corpuscular Hemoglobin 29.5 PG (27.0-34.0) Mean Corpuscular Hemoglobin Concent 32.7 % (32.0-36.0) Red Cell Distribution Width 14.5 % (11.6-17.2) Platelet Count 204 TH/MM3 (150-450) Mean Platelet Volume 8.4 FL (7.0-11.0) Neutrophils (%) (Auto) 56.9 % (16.0-70.0) Lymphocytes (%) (Auto) 17.3 % (9.0-44.0) Monocytes (%) (Auto) 14.3 % (0.0-8.0) Eosinophils (%) (Auto) 8.8 % (0.0-4.0) Basophils (%) (Auto) 2.7 % (0.0-2.0) Neutrophils # (Auto) 4.2 TH/MM3 (1.8-7.7) Lymphocytes # (Auto) 1.3 TH/MM3 (1.0-4.8) Monocytes # (Auto) 1.1 TH/MM3 (0-0.9) Eosinophils # (Auto) 0.7 TH/MM3 (0-0.4) Basophils # (Auto) 0.2 TH/MM3 (0-0.2) CBC Comment DIFF FINAL Differential Comment Blood Urea Nitrogen 53 MG/DL (7-18) Creatinine 5.45 MG/DL (0.60-1.30) Random Glucose 95 MG/DL (74-106) Calcium Level 8.3 MG/DL (8.5-10.1) Phosphorus Level 3.2 MG/DL (2.5-4.9) Sodium Level 137 MEQ/L (136-145) Potassium Level 3.8 MEQ/L (3.5-5.1) Chloride Level 104 MEQ/L (98-107) Carbon Dioxide Level 25.3 MEQ/L (21.0-32.0) Anion Gap 8 MEQ/L (5-15) Estimat Glomerular Filtration Rate 11 ML/MIN (>89) Result Diagram: 03/01/18 0657 03/01/18 0657 Sofya Junior MD Mar 01, 2018 14:23
[2018-03-01 16:00] VITALS: BP 179/72; PULSE 88; RESP 18; TEMP 99.4; O2SAT 97
[2018-03-01] MEDS ORDERED: LACTATED RINGER'S 1000 ML IV PRN (18:30)
[2018-03-01] MEDS ORDERED: POVIDONE IODINE 5% (ANTISEPSIS KIT) 4 APPLICATIONS EACH NARE PRN (18:30)
[2018-03-01] MEDS ORDERED: CHLORHEXIDINE GLUCONATE 2 % 1 PACK (2 CLOTHS) TOPICAL PRN (18:30)
[2018-03-01] MEDS ORDERED: METOPROLOL TARTRATE 25 MG TAB PO PRN (18:30)
[2018-03-01] MEDS ORDERED: SODIUM CHLORID 0.9% 500 ML IV PRN (18:30)
[2018-03-01 20:00] VITALS: BP 161/72; PULSE 92; RESP 20; TEMP 98.4; O2SAT 93
[2018-03-02] VITALS (8 sets, daily range): BP systolic 113–203; BP diastolic 63–129; PULSE 63–86; RESP 17–20; TEMP 97.3–98.2; O2SAT 94–100
[2018-03-02] MEDS: NITROGLYCERIN 2% OINT 1 GM PACKET TOPICAL SCH ×4 (03:16→22:19)
[2018-03-02] MEDS: cloNIDine HCL 0.1 MG TAB PO PRN ×2 (04:55→12:30)
[2018-03-02] MEDS: ENALAPRILAT 2.5 MG/2 ML VIAL IV PUSH PRN (06:36)
[2018-03-02] MEDS: INSULIN ASPART SUPPLEMENTAL SCALE SQ SCH ×4 (08:00→21:00)
[2018-03-02] MEDS: CALCIUM ACETATE 667 MG CAP PO SCH ×3 (08:26→11:59)
[2018-03-02] MEDS: MULTIVITAMINS/MINERALS THERAPEUTIC TAB PO SCH (08:26)
[2018-03-02] MEDS: ISOSORBIDE MONONITRATE 30 MG CR TAB (IMDUR) PO SCH (08:26)
[2018-03-02] MEDS: CARVEDILOL 12.5 MG TAB PO SCH ×2 (08:27→22:19)
[2018-03-02] MEDS: DOCUSATE SODIUM 50 MG/SENNA 8.6 MG TAB PO SCH ×2 (08:27→22:19)
[2018-03-02] MEDS: CEFEPIME INJ 1,000 MG in SODIUM CHLORIDE 0.9% INJ 100 ML IV SCH (08:27)
[2018-03-02] MEDS: SODIUM CHLOR 0.9% 1000 ML INJ 1,000 ML IV SCH ×2 (08:28→12:30)
[2018-03-02] MEDS: HEPARIN SODIUM - SQ 10,000 UNITS/ML VIAL SQ SCH ×2 (08:28→21:00)
[2018-03-02] MEDS: SODIUM CHLORIDE 0.9% FLUSH 10 ML FLUSH IV FLUSH SCH ×2 (08:28→22:19)
[2018-03-02] MEDS: COLLAGENASE OINT 30 GM TUBE TOPICAL SCH (08:29)
[2018-03-02] MEDS ORDERED: ONDANSETRON HCL 4 MG/2 ML VIAL IV ONE (12:00)
[2018-03-02] MEDS ORDERED: PHENYLEPH/NS 1000 MCG/10 ML SYR IV ONE (12:00)
[2018-03-02] MEDS ORDERED: ceFAZolin INJ 1,000 MG VIAL IV ONE ×2 (12:00→18:20)
[2018-03-02] MEDS ORDERED: PROPOFOL 200 MG/20 ML AMP IV ONE (12:00)
[2018-03-02] MEDS ORDERED: ePHEDrine/NS 25 MG/5 ML SYRINGE IV ONE (12:00)
[2018-03-02] MEDS ORDERED: ROCURONIUM INJ 50 MG/5 ML SYRINGE IV PUSH ONE (12:00)
[2018-03-02] MEDS ORDERED: LIDOCAINE HCL 1% PF 5 ML SYRINGE OTHER ONE (12:00)
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
--- NOTE | 2018-03-02 13:45 | EKG ---
Date Performed: 03/01/2018 Time Performed: 21:26:04 PTAGE: 57 years EKG: Sinus rhythm LEFT ATRIAL ENLARGEMENT POSSIBLE ANTERIOR MYOCARDIAL INFARCTION , OF INDETERMINATE AGE ABNORMAL ECG NO PREVIOUS TRACING DOCTOR: Camila Russo Interpretating Date/Time 03/02/2018 13:40:31
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
--- NOTE | 2018-03-02 16:11 | HHI.IDPN ---
Subjective Subjective Remarks Patient seen and examined with Dr. Almonte is a 57 y/o CM with PMHx of ESRD on Peritoneal dialysis ( in hospital), HTN, ? Peripheral Neuropathy,CAD s/p CABG. Per review of records it appears that a week PELT GRAD[employer] patient was reportedly repairing a radiator when he injured his left foot. He denied any fever, chills, night sweats. He was reportedly sent to ED by wound care MD. Upon arrival to the ED patient was found to have a necrotic left 1st and 2nd toe. Podiatry (), (Vascular surgery) have been following the patient along with Nephrology (Nephrology). On arrival, BP 134/100, HR 80, O2 sat 98% on RA, Afebrile. WBC normal. ESR 49. K+ 6.5. Foot X-ray negative for Osteomyelitis. Vascular surgery did not think patient needed any surgery. Per RN patient was to be discharged but discharge held yday due to Altered Mental Status. saw patient this am and CT head was obtained which showed no new stroke or bleed just chronic encephalomalacia. EEG was ordered and is being changed to STAT by me. Patient has continued to receive PD in hospital and last session was last night. ID consulted for Evaluation and management of Possible Sepsis, Pneumonia. Notes reviewed Undergoes PD Patient alert and awake. States he is waiting for his surgery. Occasional confusion noted. Denies fevers or chills Denies rash Denies cough, shortness of breath or dyspnea Denies nausea, vomiting, diarrhea, dysuria WBC within normal, latest WBC 7.5 BC negative PD fluid negative Pending OR procedure surgical excision of the toe with Dr. Roldan Antibiotics ANTIBIOTICS IV Cefepime Current Medications Medications (Trade) Dose Ordered Sig/Cesar Route Start Time Stop Time Status Last Admin Cefepime HCl 1000 mg/Sodium Chloride 100 ml @ 200 mls/hr DAILY IV 02/18/18 09:00 02/25/18 08:01 (NS Flush) 2 ml UNSCH PRN IV FLUSH 02/17/18 20:15 (NS Flush) 2 ml BID IV FLUSH 02/17/18 21:00 02/25/18 20:32 (Zofran Inj) 4 mg Q6H PRN IVP 02/17/18 20:15 02/25/18 00:33 (Heparin Inj) 5,000 units Q12H SQ 02/18/18 09:00 02/25/18 20:13 (Tylenol) 650 mg Q6H PRN PO 02/17/18 20:15 02/18/18 00:37 ([place] 5-325 Mg) 1 tab Q4H PRN PO 02/17/18 20:15 (Morphine Inj) 2 mg Q3H PRN IV PUSH 02/17/18 20:15 02/26/18 06:34 (Jacqui-Colace) 1 tab BID PO 02/17/18 21:00 02/25/18 20:13 (Milk Of Magnesia Liq) 30 ml Q12H PRN PO 02/17/18 20:15 (Senokot) 17.2 mg Q12H PRN PO 02/17/18 20:15 (Dulcolax Supp) 10 mg DAILY PRN RECTAL 02/17/18 20:15 (Lactulose Liq) 30 ml DAILY PRN PO 02/17/18 20:15 (Imdur) 60 mg DAILY PO 02/18/18 09:00 02/25/18 08:01 (Ativan) 1 mg BID PRN PO 02/17/18 23:15 02/25/18 20:13 (Theragran M Tab) 1 tab DAILY PO 02/18/18 09:00 02/25/18 08:01 (Ambien) 10 mg HS PRN PO 02/17/18 23:15 02/18/18 21:58 (D50w (Vial) Inj) 50 ml UNSCH PRN IV PUSH 02/18/18 00:15 (Glucagon Inj) 1 mg UNSCH PRN OTHER 02/18/18 00:15 (NovoLOG SUPPLEMENTAL SCALE) 1 ACHS SLIDING SCALE SQ 02/18/18 08:00 (Heparin Inj) 1,000 units WITH DIALYSIS PRN XX 02/18/18 11:00 (NS Flush) 10 ml UNSCH PRN IV FLUSH 02/18/18 11:00 (Santyl Oint) 1 applic DAILY TOPICAL 02/19/18 09:00 02/25/18 19:04 (Phoslo) 2,001 mg TID PO 02/19/18 18:00 02/25/18 19:07 (Catapres) 0.1 mg Q6H PRN PO 02/19/18 17:15 02/24/18 22:58 (Coreg) 12.5 mg BID PO 02/21/18 21:00 02/25/18 20:13 Sodium Chloride 1,000 ml @ 84 mls/hr [id number] IV 02/24/18 10:00 02/25/18 21:45 (Trandate Inj) 10 mg Q4H PRN IV PUSH 02/24/18 21:00 02/24/18 22:58 (Apresoline Inj) 20 mg Q4H PRN IV PUSH 02/24/18 21:00 02/26/18 06:32 Miscellaneous Information Patient in critical care unit? Ass... Q361D .XX 02/24/18 22:15 02/24/18 22:15 (Chlorhexidine 2% Cloth) 3 pack DAILY@04 TOPICAL 02/25/18 04:00 03/01/18 04:01 02/26/18 04:00 (Chlorhexidine 2% Cloth) 3 pack UNSCH PRN TOPICAL 02/24/18 22:15 03/01/18 22:02 Nicardipine HCl 25 mg/Sodium Chloride 250 ml @ 50 mls/hr TITRATE PRN IV 02/25/18 00:30 02/25/18 05:13 Lines Line no evidence of infection Past Medical History ESRD on PD HTN Past Surgical History CABG, Cholecystectomy (Ana Soares) Allergies: Coded Allergies: gabapentin (Unverified Allergy, Mild, Itching, 02/17/18) Objective . Vital Signs Date Time Temp Pulse Resp B/P (MAP) Pulse Ox O2 Delivery O2 Flow Rate FiO2 03/02/18 12:51 98.1 80 17 166/72 (103) 96 03/02/18 08:38 98.2 83 17 153/66 (95) 96 03/02/18 06:27 81 192/78 (116) 03/02/18 04:00 97.3 86 20 203/129 (153) 95 03/02/18 00:00 98.0 63 18 113/63 (80) 94 03/01/18 20:00 98.4 92 20 161/72 (101) 93 03/02/18 03/02/1818 15:00 23:00 07:00 Output Total 1532 ml Balance -1532 ml Peritoneal Fluid 1532 ml . Laboratory Tests Test 03/01/18 06:57 White Blood Count 7.5 TH/MM3 Red Blood Count 4.27 MIL/MM3 Hemoglobin 12.6 GM/DL Hematocrit 38.7 % Mean Corpuscular Volume 90.5 FL Mean Corpuscular Hemoglobin 29.5 PG Mean Corpuscular Hemoglobin Concent 32.7 % Red Cell Distribution Width 14.5 % Platelet Count 204 TH/MM3 Mean Platelet Volume 8.4 FL Neutrophils (%) (Auto) 56.9 % Lymphocytes (%) (Auto) 17.3 % Monocytes (%) (Auto) 14.3 % Eosinophils (%) (Auto) 8.8 % Basophils (%) (Auto) 2.7 % Neutrophils # (Auto) 4.2 TH/MM3 Lymphocytes # (Auto) 1.3 TH/MM3 Monocytes # (Auto) 1.1 TH/MM3 Eosinophils # (Auto) 0.7 TH/MM3 Basophils # (Auto) 0.2 TH/MM3 CBC Comment DIFF FINAL Differential Comment Laboratory Tests Test 03/01/18 06:57 Blood Urea Nitrogen 53 MG/DL Creatinine 5.45 MG/DL Random Glucose 95 MG/DL Calcium Level 8.3 MG/DL Phosphorus Level 3.2 MG/DL Sodium Level 137 MEQ/L Potassium Level 3.8 MEQ/L Chloride Level 104 MEQ/L Carbon Dioxide Level 25.3 MEQ/L Anion Gap 8 MEQ/L Estimat Glomerular Filtration Rate 11 ML/MIN Imaging Last Impressions Brain MRI 02/25/18 0000 Signed Impressions: Service Date/Time: Sunday, February 25, 2018 10:36 - CONCLUSION: 1. No acute hemorrhage, mass or infarction. 2. Area of apparent gliosis in the left occipital lobe with no restricted diffusion. Tio Koehler MD Abdomen/Pelvis CT 02/24/18 1159 Signed Impressions: Service Date/Time: Sunday, February 25, 2018 10:16 - CONCLUSION: 1. Peritoneal dialysis catheter in place with small amount of ascitic fluid. 2. Bilateral pleural effusions and consolidation in the posterior lower lobes. Please see chest CT for further details. 3. Unremarkable bowel gas pattern. Tio Koehler MD Head CT 02/24/18 0000 Signed Impressions: Service Date/Time: Saturday, February 24, 2018 10:38 - CONCLUSION: 1. Focal area of decreased signal in the left occipital lobe likely representing an area of encephalomalacia. 2. No acute hemorrhage or mass effect. Tio Koehler MD Chest X-Ray 02/24/18 0000 Signed Impressions: Service Date/Time: Saturday, February 24, 2018 12:03 - CONCLUSION: 1. Cardiomegaly with mild edema pattern. More focal consolidation at the left lung base could represent a superimposed bronchopneumonia. Small effusions. Ian Noyola MD Chest CT 02/24/18 0000 Signed Impressions: Service Date/Time: Sunday, February 25, 2018 10:16 - CONCLUSION: 1. Consolidation in both lower lobes left greater than right. This could represent pneumonia. 2. Bilateral pleural effusions left greater than right. 3. Status post median sternotomy with cardiomegaly and postsurgical change. Tio Koehler MD Abdomen X-Ray 02/24/18 0000 Signed Impressions: Service Date/Time: Saturday, February 24, 2018 12:07 - CONCLUSION: 1. No acute findings within the abdomen. Specifically no free air identified. Ian Noyola MD Aorta w/Runoff CTA 02/21/18 0000 Signed Impressions: Service Date/Time: Wednesday, February 21, 2018 12:39 - CONCLUSION: 1. Diffuse calcified plaque with patent inflow and outflow bilaterally. 2. Severe calcification of the trifurcation vessels bilaterally significantly limits their is evaluation. High-grade stenoses seen involving articular artery and posterior tibial artery on the left. On the right the trifurcation vessels are felt grossly patent. 3. Small left effusion with associated passive atelectasis. Elijah James Jr., MD Foot X-Ray 02/17/18 0000 Signed Impressions: Service Date/Time: Saturday, February 17, 2018 16:46 - CONCLUSION: Negative fast myelitis Gene Garcia MD FACR Last Impressions Brain MRI 02/25/18 0000 Signed Impressions: Service Date/Time: Sunday, February 25, 2018 10:36 - CONCLUSION: 1. No acute hemorrhage, mass or infarction. 2. Area of apparent gliosis in the left occipital lobe with no restricted diffusion. Tio Koehler MD Abdomen/Pelvis CT 02/24/18 1159 Signed Impressions: Service Date/Time: Sunday, February 25, 2018 10:16 - CONCLUSION: 1. Peritoneal dialysis catheter in place with small amount of ascitic fluid. 2. Bilateral pleural effusions and consolidation in the posterior lower lobes. Please see chest CT for further details. 3. Unremarkable bowel gas pattern. Tio Koehler MD Head CT 02/24/18 0000 Signed Impressions: Service Date/Time: Saturday, February 24, 2018 10:38 - CONCLUSION: 1. Focal area of decreased signal in the left occipital lobe likely representing an area of encephalomalacia. 2. No acute hemorrhage or mass effect. Tio Koehler MD Chest X-Ray 02/24/18 Signed Impressions: Service Date/Time: Saturday, February 24, 2018 12:03 - CONCLUSION: 1. Cardiomegaly with mild edema pattern. More focal consolidation at the left lung base could represent a superimposed bronchopneumonia. Small effusions. Ian Noyola MD Chest CT 02/24/18 0000 Signed Impressions: Service Date/Time: Sunday, February 25, 2018 10:16 - CONCLUSION: 1. Consolidation in both lower lobes left greater than right. This could represent pneumonia. 2. Bilateral pleural effusions left greater than right. 3. Status post median sternotomy with cardiomegaly and postsurgical change. Tio Koehler MD Abdomen X-Ray 02/24/18 0000 Signed Impressions: Service Date/Time: Saturday, February 24, 2018 12:07 - CONCLUSION: 1. No acute findings within the abdomen. Specifically no free air identified. Ian Noyola MD Aorta w/Runoff CTA 02/21/18 0000 Signed Impressions: Service Date/Time: Wednesday, February 21, 2018 12:39 - CONCLUSION: 1. Diffuse calcified plaque with patent inflow and outflow bilaterally. 2. Severe calcification of the trifurcation vessels bilaterally significantly limits their is evaluation. High-grade stenoses seen involving articular artery and posterior tibial artery on the left. On the right the trifurcation vessels are felt grossly patent. 3. Small left effusion with associated passive atelectasis. Elijah James Jr., MD Foot X-Ray 02/17/18 0000 Signed Impressions: Service Date/Time: Saturday, February 17, 2018 16:46 - CONCLUSION: Negative fast myelitis Gene Garcia MD FACR Physical Exam GENERAL: WDWN male, Awake and alert, in soft leg restraints. Oriented. SKIN: Warm and dry and dry. HEAD: Atraumatic. Normocephalic. EYES: Pupils equal round and reactive. No scleral icterus. No injection or drainage. ENT: No nasal drainage. Throat without exudate. No oral thrush. NECK: Trachea midline. Supple, nontender, no meningeal signs. CARDIOVASCULAR: HS audible. Midline CABG scar intact. NTG patch on chest. RESPIRATORY: Diminished but clear to auscultation. GASTROINTESTINAL: Abdomen soft, PD cath site with dressing C/D/I. Abdomen min tenderness to palpation, no rigidity. Bowel sounds active 4. : Condom cath in place draining clear yellow urine MUSCULOSKELETAL: Left great toe and 2nd digit with necrotic area and surrounding mild erythema. Small area of erythema noted on 3rd digit. Ulcerative lesion noted on top of left foot. No edema. NEUROLOGICAL: Awake, and alert, following commands PSYCHIATRY: Calm and cooperative. LINES: IV line sites with no e.o infection. (Ana Soares) Assessment & Plan Remarks Remarks Possible Sepsis. Left great toe and 2nd toe gangrene possible cellulitis s/p burn injury -Blood cultures no growth to date PD cath related peritonitis possible but less likely. Peritoneal fluid studies negative. Possible Aspiration Pneumonia. Bilateral pleural effusions Acute metabolic encephalopathy: ? seizures, ? uremia, sepsis. -Brain MRI showed no acute hemorrhage, mass or infarction. Area of apparent gliosis in the left occipital lobe with no restricted diffusion -Improving Suspected contact dermatitis from soft wrist restraints -Improved Hypertensive urgency ESRD on PD. HTN CAD s/p CABG. Recommendations Continue Cefepime 1 gm IV daily Recommend steroid cream for rash MRI negative. Encephalopathy and jerky movement likely metabolic. None noted today on exam Per Dr. Roldan plan on surgical excision of toe today. Will assess postoperatively. Likely will not require antibiotics postoperatively Will continue to follow (Ana Soares) Remarks The exam, history, and the medical decision-making described in the above note were completed with the assistance of the mid-level provider. I reviewed and agree with the findings presented. I attest that I had a [id number] encounter with the patient on the same day, and personally performed and documented my assessment and findings in the medical record. Will dw in am to assess if antibiotics can be stopped or changed to oral (Nichole Almonte MD) Ana Soares Mar 02, 2018 16:11 Nichole Almonte MD Mar 02, 2018 23:30
[2018-03-02] MEDS ORDERED: NEOMYCIN/POLYMYXIN 1 ML G.U. IRRIGANT ONE (17:41)
[2018-03-02] MEDS ORDERED: BUPIVACAINE HCL PF 0.5% 30 ML VIAL ONE (17:42)
[2018-03-02] MEDS ORDERED: SUGAMMADEX SODIUM 200 MG/2 ML VIAL IV PUSH ONE (17:47)
--- NOTE | 2018-03-02 18:53 | HHI.PR ---
Immediate Post Op Note Procedure Date: Mar 02, 2018 Pre Op Diagnosis: Left hallux gangrene left second digit gangrene dorsal foot ulcer Post Op Diagnosis: Same Surgeon: Fermin Schmidt Line Prep Cook(s): Scrub Procedure: Left hallux amputation, left second digit amputation sharp excisional debridement dorsal left foot ulcer Findings: Under mild sedation the patient was brought in the operating room placed in operative supine position. Following the induction of general anesthesia the patient's left lower extremity was scrubbed prepped and draped in usual aseptic fashion foot was elevated and examined. Necrotic distal aspects of the left hallux as well as second digit was noted. Full-thickness fibrotic ulcer of the dorsal aspect of the foot measuring approximately 32 cm noted sharp excisional debridement took place of the dorsal foot fibrotic tissue down to dermis without exposing tendon. Elliptical incision took place at the base of the first MPJ full-thickness down to joint capsule. Intact joint surface first metatarsal no signs of infection Bovie and ligation of neurovascular structures took place. The hallux was sharply disarticulated and passed off the field. Next a fishmouth type incision was made at the base of the second digit. Full- thickness incision down to joint capsule. The digit was sharply disarticulated and passed off the surgical field. Neurovascular structures were bovied and ligated as deemed necessary. Wounds were flushed with copious amounts of normal saline and they appeared to be viable without signs of infection. Amputation sites were coapted utilizing Vicryl and nylon. Nonadherent bandage placed of the dorsal aspect wound. Bulky bandage applied. Patient tolerated anesthesia and procedure well, minimal blood loss noted less than 25 ML's. Complications: None Specimen(s) removed: First and second digit Estimated blood loss: Less than 30 mL's Anesthesia: General Drains: None Tourniquet time (min at mmHg) No tourniquet used Patient to: PACU Patient Condition: Good Implant/Devices: SEE IMPLANT LOG (if applicable) Date/Time of Procedure: SEE SURGICAL CARE RECORD Fermin SchmidtM Mar 02, 2018 18:53
[2018-03-02] MEDS ORDERED: DO NOT ADM ANY ANTICOAGULANT DRUGS PRN (20:45)
[2018-03-03] VITALS (7 sets, daily range): BP systolic 125–212; BP diastolic 71–88; PULSE 81–91; RESP 18–22; TEMP 97.7–98.7; O2SAT 96–98
[2018-03-03] MEDS: NITROGLYCERIN 2% OINT 1 GM PACKET TOPICAL SCH ×4 (01:12→23:15)
[2018-03-03] MEDS: cloNIDine HCL 0.1 MG TAB PO PRN ×2 (01:12→13:47)
[2018-03-03] MEDS: ZOLPIDEM TARTRATE 10 MG TAB PO PRN ×2 (01:15→23:30)
[2018-03-03] MEDS: INSULIN ASPART SUPPLEMENTAL SCALE SQ SCH ×4 (08:00→21:00)
[2018-03-03] MEDS: CARVEDILOL 12.5 MG TAB PO SCH ×2 (08:21→23:15)
[2018-03-03] MEDS: ISOSORBIDE MONONITRATE 30 MG CR TAB (IMDUR) PO SCH (08:21)
[2018-03-03] MEDS: DOCUSATE SODIUM 50 MG/SENNA 8.6 MG TAB PO SCH ×2 (08:21→23:22)
[2018-03-03] MEDS: HEPARIN SODIUM - SQ 10,000 UNITS/ML VIAL SQ SCH ×2 (08:22→23:21)
[2018-03-03] MEDS: MULTIVITAMINS/MINERALS THERAPEUTIC TAB PO SCH (08:22)
[2018-03-03] MEDS: CEFEPIME INJ 1,000 MG in SODIUM CHLORIDE 0.9% INJ 100 ML IV SCH (08:23)
[2018-03-03] MEDS: COLLAGENASE OINT 30 GM TUBE TOPICAL SCH (08:23)
[2018-03-03] MEDS: SODIUM CHLORIDE 0.9% FLUSH 10 ML FLUSH IV FLUSH SCH ×2 (08:23→21:00)
[2018-03-03] MEDS: CALCIUM ACETATE 667 MG CAP PO SCH ×3 (08:24→17:26)
--- NOTE | 2018-03-03 09:05 | HHI.FPPN ---
Subjective Remarks MORE ALERT NOT AT BASELINE D/W RN Objective Vitals Vital Signs Date Time Temp Pulse Resp B/P (MAP) Pulse Ox O2 Delivery O2 Flow Rate FiO2 03/03/18 08:00 97.7 84 20 186/78 (114) 98 03/03/18 04:00 98.7 88 22 125/76 (92) 98 03/03/18 00:00 98.0 81 22 184/79 (114) 98 03/02/18 20:00 97.7 82 18 149/72 (97) 100 03/02/18 19:30 79 14 148/75 (99) 100 Nasal Cannula 2 03/02/18 19:15 79 14 152/70 (97) 100 Nasal Cannula 2 03/02/18 19:00 97.6 79 14 149/68 (95) 100 Nasal Cannula 2 03/02/18 17:59 98 21 03/02/18 16:20 98.1 81 17 150/72 (98) 98 03/02/18 12:51 98.1 80 17 166/72 (103) 96 I/O 03/02/18 03/02/18 03/02/18 03/03/18 03/03/18 03/03/18 07:00 15:00 23:00 07:00 15:00 23:00 Intake Total 500 ml Output Total 750 ml 1532 ml 430 ml 400 ml Balance -750 ml -1532 ml 70 ml -400 ml IV Total 500 ml Output Urine Total 750 ml 425 ml 400 ml Peritoneal Fluid 1532 ml Estimated Blood Loss 5 ml # Bowel Movements 0 Result Diagram: 03/01/18 0657 03/01/18 0657 Objective Remarks GENERAL: overall weakness, SKIN: Warm and dry. left gangrenous toes HEAD: Atraumatic. Normocephalic. EYES: Pupils equal and round. No scleral icterus. No injection or drainage. ENT: No nasal bleeding or discharge. Mucous membranes pink and moist. NECK: Trachea midline. No JVD. CARDIOVASCULAR: Regular rate and rhythm. RESPIRATORY: No accessory muscle use. Clear to auscultation. Breath sounds equal bilaterally. GASTROINTESTINAL: Abdomen soft, non-tender, nondistended. Hepatic and splenic margins not palpable. MUSCULOSKELETAL: Extremities without clubbing, cyanosis, or edema. wounds at feet are stable. NEUROLOGICAL: Awake and alert x one. No obvious cranial nerve deficits. Motor grossly within normal limits. 1 out of 5 muscle strength in the arms and legs. Normal speech. PSYCHIATRIC: Appropriate mood and affect; insight and judgment normal. Medications and IVs Current Medications Medications (Trade) Dose Ordered Sig/Cesar Route Start Time Stop Time Status Last Admin Cefepime HCl 1000 mg/Sodium Chloride 100 ml @ 200 mls/hr DAILY IV 02/18/18 09:00 03/03/18 08:23 (NS Flush) 2 ml UNSCH PRN IV FLUSH 02/17/18 20:15 (NS Flush) 2 ml BID IV FLUSH 02/17/18 21:00 03/03/18 08:23 (Zofran Inj) 4 mg Q6H PRN IVP 02/17/18 20:15 02/27/18 10:17 (Heparin Inj) 5,000 units Q12H SQ 02/18/18 09:00 03/03/18 08:22 (Tylenol) 650 mg Q6H PRN PO 02/17/18 20:15 02/18/18 00:37 ([place] 5-325 Mg) 1 tab Q4H PRN PO 02/17/18 20:15 02/27/18 22:16 (Morphine Inj) 2 mg Q3H PRN IV PUSH 02/17/18 20:15 02/27/18 06:12 (Jacqui-Colace) 1 tab BID PO 02/17/18 21:00 03/03/18 08:21 (Milk Of Magnesia Liq) 30 ml Q12H PRN PO 02/17/18 20:15 (Senokot) 17.2 mg Q12H PRN PO 02/17/18 20:15 (Dulcolax Supp) 10 mg DAILY PRN RECTAL 02/17/18 20:15 (Lactulose Liq) 30 ml DAILY PRN PO 02/17/18 20:15 02/26/18 18:47 (Ativan) 1 mg BID PRN PO 02/17/18 23:15 02/28/18 22:07 (Theragran M Tab) 1 tab DAILY PO 02/18/18 09:00 03/03/18 08:22 (Ambien) 10 mg HS PRN PO 02/17/18 23:15 03/03/18 01:15 (D50w (Vial) Inj) 50 ml UNSCH PRN IV PUSH 02/18/18 00:15 (Glucagon Inj) 1 mg UNSCH PRN OTHER 02/18/18 00:15 (NovoLOG SUPPLEMENTAL SCALE) 1 ACHS SLIDING SCALE SQ 02/18/18 08:00 02/26/18 21:00 (Heparin Inj) 1,000 units WITH DIALYSIS PRN XX 02/18/18 11:00 (NS Flush) 10 ml UNSCH PRN IV FLUSH 02/18/18 11:00 (Santyl Oint) 1 applic DAILY TOPICAL 02/19/18 09:00 03/03/18 08:23 (Phoslo) 2,001 mg TID PO 02/19/18 18:00 03/03/18 08:24 (Catapres) 0.1 mg Q6H PRN PO 02/19/18 17:15 03/03/18 01:12 (Coreg) 12.5 mg BID PO 02/21/18 21:00 03/03/18 08:21 Sodium Chloride 1,000 ml @ 30 mls/hr Q24H IV 02/24/18 10:00 03/02/18 12:30 (Trandate Inj) 10 mg Q4H PRN IV PUSH 02/24/18 21:00 02/27/18 06:09 (Apresoline Inj) 20 mg Q4H PRN IV PUSH 02/24/18 21:00 02/27/18 11:25 Miscellaneous Information Patient in critical care unit? Ass... Q361D .XX 02/24/18 22:15 02/24/18 22:15 Nicardipine HCl 25 mg/Sodium Chloride 250 ml @ 50 mls/hr TITRATE PRN IV 02/25/18 00:30 02/25/18 05:13 (Nitroglycerin 2% Oint) 1 inch Q6H TOPICAL 02/28/18 02:00 03/03/18 08:23 (Catapres-Tts 0.1mg Patch.7d) 1 patch Q7D PRN T-DERMAL 02/28/18 01:45 (Vasotec Inj) 2.5 mg Q4H PRN IV PUSH 02/28/18 01:45 03/02/18 06:36 (Ativan Inj) 0.5 mg Q6H PRN IV PUSH 4/3/18 10:00 02/28/18 10:21 (Imdur) 90 mg DAILY PO 03/01/18 09:00 03/03/18 08:21 (Betadine 5% Antisepsis Kit) 1 applic ASSISTANT CURATOR PRN EACH NARE 03/01/18 18:30 03/04/18 18:29 Miscellaneous Information ALL NURSING DEPARTME... UNSCH PRN .XX 03/02/18 20:45 03/03/18 20:44 A/P Assessment and Plan Assessment and Plan- -Encephalopathy: ? uremia, sepsis, htn -Tremors/involuntary movement: due to metabolic enceph -Sepsis -Peritonitis, resolved, Negative fluid culture -Left hallux gangrene left second digit gangrene dorsal foot ulcer -aspiration pneumonia -Possible PD catheter related peritonitis -Dry Gangrene: -s/p burn to left foot w/ necrotic wound to left great toe, blisters to left 2nd toe and dorsum of left foot. -ESRD on peritoneal dialysis -PVD -CAD status post previous CABG -Urgent Hypertension Plan: Monitor post amputation and continue with ID reccomendations Monitor out of ICU. Neuro: due to HTN and encephalopathy, delirium, Head CT without any evidence of bleed. Encephalomalacia appears to be old. EEG - abnormal secondary to metabolic encephalopathy. Neurology Dr. Don consulted for further evaluation of encephalopathy. MRI brain with no acute findings. Small area of left occipital lobe encephalomalacia. Avoid sedatives and narcotics if possible. Cardiovascular: ntg oint and clonidine patch, prn vasotech Pulmonary: Supplemental O2 as needed. Bronchodilators as needed. Currently protecting airway. GI/liver: advance to renal diet as tolerated. CT abdomen pelvis with no acute pathology noted Renal/: On peritoneal dialysis, being followed by nephrology-Dr. Franks. ID: Follow-up cultures. Antibiotics per ID. Foot X-ray negative for osteomyelitis. podiatry following for gangrenous left great toe. Heme: Follow CBC Endocrine: SSI for glycemic control as needed. Prophylaxis: Subcutaneous heparin for DVT prophylaxis. Problem List: (1) Dry gangrene ICD Codes: I96 - Gangrene, not elsewhere classified Status: Acute (2) HTN (hypertension) ICD Codes: I10 - Essential (primary) hypertension (3) ESRD on peritoneal dialysis ICD Codes: N18.6 - End stage renal disease; Z99.2 - Dependence on renal dialysis Problem Qualifiers (1) HTN (hypertension): Qualified Codes: I10 - Essential (primary) hypertension Jarad Lin MD Mar 03, 2018 09:04
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
[2018-03-04] VITALS (7 sets, daily range): BP systolic 146–198; BP diastolic 67–90; PULSE 87–93; RESP 16–20; TEMP 97.8–98.8; O2SAT 96–98
[2018-03-04] MEDS: NITROGLYCERIN 2% OINT 1 GM PACKET TOPICAL SCH ×4 (02:48→22:03)
[2018-03-04] MEDS: cloNIDine HCL 0.1 MG TAB PO PRN ×2 (05:09→16:52)
[2018-03-04] MEDS: CARVEDILOL 12.5 MG TAB PO SCH ×2 (08:38→22:05)
[2018-03-04] MEDS: MULTIVITAMINS/MINERALS THERAPEUTIC TAB PO SCH (08:38)
[2018-03-04] MEDS: ISOSORBIDE MONONITRATE 30 MG CR TAB (IMDUR) PO SCH (08:38)
[2018-03-04] MEDS: DOCUSATE SODIUM 50 MG/SENNA 8.6 MG TAB PO SCH ×2 (08:38→22:05)
[2018-03-04] MEDS: CALCIUM ACETATE 667 MG CAP PO SCH ×3 (08:38→18:23)
[2018-03-04] MEDS: LACTULOSE SYRUP 20 GM/30 ML CUP PO PRN (08:38)
[2018-03-04] MEDS: CEFEPIME INJ 1,000 MG in SODIUM CHLORIDE 0.9% INJ 100 ML IV SCH (08:39)
[2018-03-04] MEDS: INSULIN ASPART SUPPLEMENTAL SCALE SQ SCH ×4 (08:39→21:00)
[2018-03-04] MEDS: HEPARIN SODIUM - SQ 10,000 UNITS/ML VIAL SQ SCH ×2 (08:39→22:07)
[2018-03-04] MEDS: SODIUM CHLOR 0.9% 1000 ML INJ 1,000 ML IV SCH (08:39)
[2018-03-04] MEDS: COLLAGENASE OINT 30 GM TUBE TOPICAL SCH (08:40)
[2018-03-04] MEDS: SODIUM CHLORIDE 0.9% FLUSH 10 ML FLUSH IV FLUSH SCH ×2 (08:40→21:00)
[2018-03-04 09:07] LABS: AUTOMATED NEUTROPHIL # 7.7 TH/MM3 (1.8-7.7); BASOPHIL # 0.1 TH/MM3 (0-0.2); BASOPHIL % 0.9 % (0.0-2.0); EOSINOPHIL # 0.2 TH/MM3 (0-0.4); EOSINOPHIL % 1.8 % (0.0-4.0); HEMATOCRIT 41.2 % (39.0-51.0); HEMOGLOBIN 13.5 GM/DL (13.0-17.0); LYMPH % 8.7 % (9.0-44.0); LYMPHOCYTE # 0.9 TH/MM3 (1.0-4.8); MEAN CELL VOLUME 90.7 FL (80.0-100.0); MEAN CORPUSCULAR HEMOGLOBIN 29.7 PG (27.0-34.0); MEAN CORPUSCULAR HGB CONC 32.8 % (32.0-36.0); MEAN PLATELET VOLUME 9.2 FL (7.0-11.0); MONO % 15.1 % (0.0-8.0); MONOCYTE # 1.6 TH/MM3 (0-0.9); NEUT % 73.5 % (16.0-70.0); PLATELET COUNT 207 TH/MM3 (150-450); RED BLOOD COUNT 4.54 MIL/MM3 (4.50-5.90); WHITE BLOOD COUNT 10.5 TH/MM3 (4.0-11.0)
[2018-03-04 09:11] LABS: BICARBONATE 25.9 MEQ/L (21.0-32.0); CALCIUM 8.6 MG/DL (8.5-10.1); CREATININE 5.43 MG/DL (0.60-1.30)
[2018-03-04 09:12] LABS: PHOSPHORUS 2.4 MG/DL (2.5-4.9)
--- NOTE | 2018-03-04 11:47 | HHI.PR ---
Subjective Remarks Follow up encephalopathy, tremors, sepsis. The patient states that he is feeling good today. He is still shaky. Pain is controlled at this time. Objective Vitals Vital Signs Date Time Temp Pulse Resp B/P (MAP) Pulse Ox O2 Delivery O2 Flow Rate FiO2 03/04/18 11:36 98.1 87 20 182/76 (111) 96 03/04/18 08:14 98.0 88 20 184/79 (114) 96 182/79 (113) 03/04/18 04:00 98.1 87 16 175/79 (111) 98 03/04/18 00:00 97.8 89 18 157/70 (99) 98 03/03/18 20:00 97.8 91 18 212/88 (129) 97 03/03/18 16:00 97.9 89 18 175/71 (105) 96 03/03/18 13:09 96 03/03/18 12:00 97.9 81 18 171/76 (107) 96 I/O 03/03/18 03/03/18 03/03/18 03/04/18 03/04/18 03/04/18 07:00 15:00 23:00 07:00 15:00 23:00 Intake Total 720 ml 480 ml Output Total 400 ml 375 ml 200 ml Balance -400 ml 345 ml 280 ml Intake Oral 720 ml 480 ml Output Urine Total 400 ml 375 ml 200 ml # Bowel Movements 0 0 Result Diagram: 03/04/18 0701 03/04/18 0701 Imaging Last Impressions Brain MRI 02/25/18 0000 Signed Impressions: Service Date/Time: Sunday, February 25, 2018 10:36 - CONCLUSION: 1. No acute hemorrhage, mass or infarction. 2. Area of apparent gliosis in the left occipital lobe with no restricted diffusion. Tio Koehler MD Abdomen/Pelvis CT 02/24/18 1159 Signed Impressions: Service Date/Time: Sunday, February 25, 2018 10:16 - CONCLUSION: 1. Peritoneal dialysis catheter in place with small amount of ascitic fluid. 2. Bilateral pleural effusions and consolidation in the posterior lower lobes. Please see chest CT for further details. 3. Unremarkable bowel gas pattern. Tio Koehler MD Head CT 02/24/18 0000 Signed Impressions: Service Date/Time: Saturday, February 24, 2018 10:38 - CONCLUSION: 1. Focal area of decreased signal in the left occipital lobe likely representing an area of encephalomalacia. 2. No acute hemorrhage or mass effect. Tio Koehler MD Chest X-Ray 02/24/18 0000 Signed Impressions: Service Date/Time: Saturday, February 24, 2018 12:03 - CONCLUSION: 1. Cardiomegaly with mild edema pattern. More focal consolidation at the left lung base could represent a superimposed bronchopneumonia. Small effusions. Ian Noyola MD Chest CT 02/24/18 0000 Signed Impressions: Service Date/Time: Sunday, February 25, 2018 10:16 - CONCLUSION: 1. Consolidation in both lower lobes left greater than right. This could represent pneumonia. 2. Bilateral pleural effusions left greater than right. 3. Status post median sternotomy with cardiomegaly and postsurgical change. Tio Koehler MD Abdomen X-Ray 02/24/18 0000 Signed Impressions: Service Date/Time: Saturday, February 24, 2018 12:07 - CONCLUSION: 1. No acute findings within the abdomen. Specifically no free air identified. Ian Noyola MD Aorta w/Runoff CTA 02/21/18 0000 Signed Impressions: Service Date/Time: Wednesday, February 21, 2018 12:39 - CONCLUSION: 1. Diffuse calcified plaque with patent inflow and outflow bilaterally. 2. Severe calcification of the trifurcation vessels bilaterally significantly limits their is evaluation. High-grade stenoses seen involving articular artery and posterior tibial artery on the left. On the right the trifurcation vessels are felt grossly patent. 3. Small left effusion with associated passive atelectasis. Elijah James Jr., MD Foot X-Ray 02/17/18 0000 Signed Impressions: Service Date/Time: Saturday, February 17, 2018 16:46 - CONCLUSION: Negative fast myelitis Gene Garcia MD FACR Objective Remarks General: No acute distress. Heart: Regular rate and rhythm. No murmur. Lungs: Clear to auscultation bilaterally. No wheezes, rales, or rhonchi. Breathing is nonlabored. Abdomen: Soft, nontender, nondistended. Extremities: No lower extremity edema. Status post right midfoot amputation. Left foot bandaged. Psych: Alert, somewhat confused. Answers questions appropriately. Procedures 03/02/18 Left hallux amputation, left second digit amputation sharp excisional debridement dorsal left foot ulcer Urinary Catheter: No Vascular Central Line Catheter: No A/P Problem List: (1) Dry gangrene ICD Code: I96 - Gangrene, not elsewhere classified Status: Acute (2) HTN (hypertension) ICD Code: I10 - Essential (primary) hypertension (3) ESRD on peritoneal dialysis ICD Code: N18.6 - End stage renal disease; Z99.2 - Dependence on renal dialysis Assessment and Plan 1. Metabolic encephalopathy: Likely secondary to sepsis, uremia. Continue to monitor mental status. Improving, but apparently not yet at baseline. 2. Tremors, involuntary movements: Likely secondary to metabolic encephalopathy. Evaluated by neurology. 3. Sepsis: Secondary to cellulitis, peritonitis, pneumonia. Appreciate infectious disease recommendations. Continue antibiotics. 4. Peritonitis: Resolved. Fluid culture negative. 5. Left hallux gangrene, left second digit gangrene: Status post amputation. Management per podiatry. 6. Aspiration pneumonia: Continue antibiotics per infectious disease. 7. End-stage renal disease: On peritoneal dialysis. Appreciate nephrology recommendations. 8. Coronary artery disease: Status post previous CABG. Currently symptomatic. 9. Hypertensive urgency: Blood pressure remains elevated. Vasotec as needed. Continue carvedilol. Add hydralazine. 10. DVT prophylaxis: Heparin. Discharge Planning Pending further clinical improvement. Problem Qualifiers (1) HTN (hypertension): Qualified Codes: I10 - Essential (primary) hypertension Finesse Campos MD Mar 04, 2018 11:47
[2018-03-04] MEDS: hydrALAZINE HCL 10 MG TAB PO SCH ×2 (12:23→18:23)
--- NOTE | 2018-03-04 17:07 | PD.POD ---
Subjective Pain score: 0 Remarks Seems to be much more awake politely confused and not complaining of much foot pain Past Med/Surg/Social History Past Medical History HEENT: REPORTS HX OF: Cataracts Endocrine: REPORTS HX OF: Diabetes mellitus (diet controlled) Cardiovascular: REPORTS HX OF: Hypertension, Other CV history Genitourinary: REPORTS HX OF: Kidney disease Musculoskeletal: REPORTS HX OF: Fractures (right arm, left leg, 4 fingers on left hand, 2 toes on each foot.) Psychiatric: REPORTS HX OF: Anxiety Past Surgical History Respiratory: REPORTS HX OF: Other chest surgery Gastrointestinal: REPORTS HX OF: Cholecystectomy Musculoskeletal: REPORTS HX OF: Other musculoskeletal srg (right foot) Social History Smoking Status: Never Smoker Objective Vital Signs Vital Signs Date Time Temp Pulse Resp B/P (MAP) Pulse Ox O2 Delivery O2 Flow Rate FiO2 03/04/18 15:56 98.8 93 20 197/86 (123) 96 198/90 (126) 03/04/18 11:36 98.1 87 20 182/76 (111) 96 03/04/18 09:20 98 21 03/04/18 08:14 98.0 88 20 184/79 (114) 96 182/79 (113) 03/04/18 04:00 98.1 87 16 175/79 (111) 98 03/04/18 00:00 97.8 89 18 157/70 (99) 98 03/03/18 20:00 97.8 91 18 212/88 (129) 97 Coded Allergies: gabapentin (Unverified Allergy, Mild, Itching, 02/17/18) Medications and IVs Administered Medications Medications (Trade) Dose Ordered Sig/Cesar Route PRN Reason Start Time Stop Time Status Last Admin Dose Admin Cefepime HCl 1000 mg/Sodium Chloride 100 ml @ 200 mls/hr DAILY IV 02/18/18 09:00 03/04/18 08:39 Sodium Chloride (NS Flush) 2 ml BID IV FLUSH 02/17/18 21:00 03/04/18 08:40 Ondansetron HCl (Zofran Inj) 4 mg Q6H PRN IVP NAUSEA OR VOMITING 02/17/18 20:15 02/27/18 10:17 Heparin Sodium (Porcine) (Heparin Inj) 5,000 units Q12H SQ 02/18/18 09:00 03/04/18 08:39 Acetaminophen (Tylenol) 650 mg Q6H PRN PO FEVER/PAIN SCALE 1 TO 2 02/17/18 20:15 02/18/18 00:37 Acetaminophen/ Hydrocodone Bitart ([place] 5-325 Mg) 1 tab Q4H PRN PO PAIN SCALE 3 TO 5 02/17/18 20:15 02/27/18 22:16 Morphine Sulfate (Morphine Inj) 2 mg Q3H PRN IV PUSH Pain 6-10 02/17/18 20:15 02/27/18 06:12 Senna/Docusate Sodium (Jacqui-Colace) 1 tab BID PO 02/17/18 21:00 03/04/18 08:38 Lactulose (Lactulose Liq) 30 ml DAILY PRN PO SEVERE CONSITIPATION 02/17/18 20:15 03/04/18 08:38 Lorazepam (Ativan) 1 mg BID PRN PO ANXIETY 02/17/18 23:15 02/28/18 22:07 Multivitamins/ Minerals Therapeutic (Theragran M Tab) 1 tab DAILY PO 02/18/18 09:00 03/04/18 08:38 Zolpidem Tartrate (Ambien) 10 mg HS PRN PO INSOMNIA 02/17/18 23:15 03/03/18 23:30 Insulin Aspart (NovoLOG SUPPLEMENTAL SCALE) 1 ACHS SLIDING SCALE SQ 02/18/18 08:00 03/04/18 13:04 Collagenase (Santyl Oint) 1 applic DAILY TOPICAL 02/19/18 09:00 03/03/18 08:23 Calcium Acetate (Phoslo) 2,001 mg TID PO 02/19/18 18:00 03/04/18 13:04 Clonidine (Catapres) 0.1 mg Q6H PRN PO SBP>160, DBP>90 02/19/18 17:15 03/04/18 16:52 Carvedilol (Coreg) 12.5 mg BID PO 02/21/18 21:00 03/04/18 08:38 Sodium Chloride 1,000 ml @ 30 mls/hr Q24H IV 02/24/18 10:00 03/04/18 08:39 Labetalol HCl (Trandate Inj) 10 mg Q4H PRN IV PUSH SBP>160, DBP>90 02/24/18 21:00 02/27/18 06:09 Hydralazine HCl (Apresoline Inj) 20 mg Q4H PRN IV PUSH SBP>160, DBP>90 02/24/18 21:00 02/27/18 11:25 Miscellaneous Information Patient in critical care unit? Ass... Q361D .XX 02/24/18 22:15 02/24/18 22:15 Nicardipine HCl 25 mg/Sodium Chloride 250 ml @ 50 mls/hr TITRATE PRN IV Blood pressure management 02/25/18 00:30 02/25/18 05:13 Nitroglycerin (Nitroglycerin 2% Oint) 1 inch Q6H TOPICAL 02/28/18 02:00 03/04/18 13:04 Enalaprilat (Vasotec Inj) 2.5 mg Q4H PRN IV PUSH FOR SBP > 190 02/28/18 01:45 03/02/18 06:36 Lorazepam (Ativan Inj) 0.5 mg Q6H PRN IV PUSH AGITATION 02/28/18 10:00 02/28/18 10:21 Isosorbide Mononitrate (Imdur) 90 mg DAILY PO 03/01/18 09:00 03/04/18 08:38 Hydralazine HCl (Apresoline) 10 mg Q6HR PO 03/04/18 12:00 03/04/18 12:23 Other Results Laboratory Tests Test 03/04/18 07:01 White Blood Count 10.5 TH/MM3 Red Blood Count 4.54 MIL/MM3 Hemoglobin 13.5 GM/DL Hematocrit 41.2 % Mean Corpuscular Volume 90.7 FL Mean Corpuscular Hemoglobin 29.7 PG Mean Corpuscular Hemoglobin Concent 32.8 % Red Cell Distribution Width 15.0 % Platelet Count 207 TH/MM3 Mean Platelet Volume 9.2 FL Neutrophils (%) (Auto) 73.5 % Lymphocytes (%) (Auto) 8.7 % Monocytes (%) (Auto) 15.1 % Eosinophils (%) (Auto) 1.8 % Basophils (%) (Auto) 0.9 % Neutrophils # (Auto) 7.7 TH/MM3 Lymphocytes # (Auto) 0.9 TH/MM3 Monocytes # (Auto) 1.6 TH/MM3 Eosinophils # (Auto) 0.2 TH/MM3 Basophils # (Auto) 0.1 TH/MM3 CBC Comment DIFF FINAL Differential Comment Laboratory Tests Test 03/04/18 07:01 Blood Urea Nitrogen 53 MG/DL Creatinine 5.43 MG/DL Random Glucose 129 MG/DL Calcium Level 8.6 MG/DL Phosphorus Level 2.4 MG/DL Sodium Level 137 MEQ/L Potassium Level 3.4 MEQ/L Chloride Level 102 MEQ/L Carbon Dioxide Level 25.9 MEQ/L Anion Gap 9 MEQ/L Estimat Glomerular Filtration Rate 11 ML/MIN Exam-Podiatry Remarks Left foot amputation site well coapted minimal drainage, mild redness, no ischemic changes, no drainage, capillary fill time intact to digits 34 and 5 decreased pulses decreased sensation below ankle bilateral Dorsal left foot ulcer mixed fibrotic granular majority fibrotic, no exposed bone or tendon. Approximate measurements 3 cm 2.5 cm with 3 mm greatest depth Right foot well-healed TMA Assessment & Plan A/P Left hallux and second digit gangrene with dorsal foot ulcer Status post amputation left hallux, second digit amputation, full-thickness debridement dorsum foot. Bandage changed today, mild redness noted. Continue antibiotics for least 1 more day then okay to switch to oral antibiotics. May evaluate later on in the week for possible skin graft dorsal foot ulcer. We'll sign out Tuesday to Dr. Hernandez, orders in chart for nursing for bandage change. Fermin Roldan DPTeodora Mar 04, 2018 17:07
--- NOTE | 2018-03-04 17:50 | HHI.NPPN ---
Subjective General Problems: Anemia, Heart Disease Renal Failure: End Stage Renal Disease History of Present Illness . Patient is a 57-year-old male with history of end-stage renal disease, hypertension who is on peritoneal dialysis follows with Dr. Franks, he has a burning injury in the left foot and developed dry gangrene in toes he has been admitted for further evaluation and treatment: Outpatient is on peritoneal dialysis and follows with Yvonne. Additional Remarks Patient is alert and oriented. Denies any SOB. Rahul wrap on left lower extremity. Review of Systems Respiratory Respiratory Remarks Denies any SOB Cardiovascular Cardiac Remarks Denies any CP Gastrointestinal GI Remarks denies any abdominal pain Objective Data Data 03/04/18 03/05/18 19:00 07:00 Intake Total 100 ml Output Total 200 ml Balance -100 ml IV Total 100 ml Output Urine Total 200 ml # Bowel Movements 1 Vital Signs Date Time Temp Pulse Resp B/P (MAP) Pulse Ox O2 Delivery O2 Flow Rate FiO2 03/04/18 15:56 98.8 93 20 197/86 (123) 96 198/90 (126) 03/04/18 11:36 98.1 87 20 182/76 (111) 96 03/04/18 09:20 98 21 03/04/18 08:14 98.0 88 20 184/79 (114) 96 182/79 (113) 03/04/18 04:00 98.1 87 16 175/79 (111) 98 03/04/18 00:00 97.8 89 18 157/70 (99) 98 03/03/18 20:00 97.8 91 18 212/88 (129) 97 -: 03/04/18 0701 03/04/18 0701 Physical Exam General Appearance: No Acute Distress, Comfortable Neck Neck Exam: Neck Supple Pulmonary Resp Exam: Breath Sounds Equal, No Distress Cardiology CV Exam: Regular, Normal Sinus Rhythm Gastrointestinal/Abdomen GI Exam: Soft, Non-Tender, Bowel Sounds Present Genitourinary Exam: Flank Non-Tender Integumentary Skin Exam: Lesion(s) Extremeties Extremities Exam: Trace Edema Neurologic Neuro Exam: Alert, Awake Assessment/Plan Discussed Condition With: Patient Assessment Summary: End Stage Renal Disease Electrolyte Assessment: Hyponatremia Problem List: (1) ESRD on peritoneal dialysis ICD Codes: N18.6 - End stage renal disease; Z99.2 - Dependence on renal dialysis Plan: ESRD on PD nightly CTA noted. PD fluid is clear, WBC was 143, mainly monocytes. CT abd. and MRI brain results noted. PD cultures negative Left hallux amputation, left second digit amputation 03/02/18 Plan Continue APD Continue Phoslo. ID is following, On Cefepime Patient seen and examined, agree with above. K low KCL 16 meq ordered Doing better, discharge one cleared by Podiatry. follows with Dr. Franks (2) HTN (hypertension) ICD Codes: I10 - Essential (primary) hypertension Plan: Better controlled (3) Dry gangrene ICD Codes: I96 - Gangrene, not elsewhere classified Status: Acute Plan: History of burn to left foot POD #1 Problem Qualifiers (1) HTN (hypertension): Qualified Codes: I10 - Essential (primary) hypertension Catracho Johnson MD Mar 04, 2018 17:50
[2018-03-04] MEDS ORDERED: POTASSIUM CHLORIDE 8 MEQ CONTROLLED RELEASE TAB PO ONE (18:00)
[2018-03-05] VITALS (7 sets, daily range): BP systolic 123–223; BP diastolic 68–94; PULSE 83–93; RESP 16–20; TEMP 97.1–98.7; O2SAT 96–99
[2018-03-05] MEDS: NITROGLYCERIN 2% OINT 1 GM PACKET TOPICAL SCH ×2 (01:20→09:38)
[2018-03-05] MEDS: hydrALAZINE HCL 10 MG TAB PO SCH ×4 (01:20→17:19)
[2018-03-05] MEDS: ISOSORBIDE MONONITRATE 30 MG CR TAB (IMDUR) PO SCH (09:29)
[2018-03-05] MEDS: CARVEDILOL 12.5 MG TAB PO SCH ×2 (09:29→21:20)
[2018-03-05] MEDS: HEPARIN SODIUM - SQ 10,000 UNITS/ML VIAL SQ SCH ×2 (09:29→21:21)
[2018-03-05] MEDS: CALCIUM ACETATE 667 MG CAP PO SCH ×3 (09:29→17:19)
[2018-03-05] MEDS: CEFEPIME INJ 1,000 MG in SODIUM CHLORIDE 0.9% INJ 100 ML IV SCH (09:29)
[2018-03-05] MEDS: DOCUSATE SODIUM 50 MG/SENNA 8.6 MG TAB PO SCH ×2 (09:29→21:20)
[2018-03-05] MEDS: MULTIVITAMINS/MINERALS THERAPEUTIC TAB PO SCH (09:29)
[2018-03-05] MEDS: SODIUM CHLOR 0.9% 1000 ML INJ 1,000 ML IV SCH (09:30)
[2018-03-05] MEDS: INSULIN ASPART SUPPLEMENTAL SCALE SQ SCH ×4 (09:30→21:00)
[2018-03-05] MEDS: SODIUM CHLORIDE 0.9% FLUSH 10 ML FLUSH IV FLUSH SCH ×2 (09:30→21:00)
[2018-03-05] MEDS: COLLAGENASE OINT 30 GM TUBE TOPICAL SCH (09:30)
--- NOTE | 2018-03-05 10:16 | HHI.PR ---
Subjective Remarks Follow up sepsis, foot infection, pneumonia. Patient has no complaints at this time. Denies chest pain or dyspnea. Objective Vitals Vital Signs Date Time Temp Pulse Resp B/P (MAP) Pulse Ox O2 Delivery O2 Flow Rate FiO2 03/05/18 09:08 98.7 85 20 143/93 (110) 99 03/05/18 04:00 97.1 86 16 123/68 (86) 03/05/18 00:00 97.8 93 16 160/76 (104) 96 03/04/18 22:18 21 03/04/18 20:00 98.8 91 16 146/67 (93) 97 03/04/18 15:56 98.8 93 20 197/86 (123) 96 198/90 (126) 03/04/18 11:36 98.1 87 20 182/76 (111) 96 I/O 03/04/18 03/04/18 03/04/18 03/05/18 03/05/18 03/05/18 07:00 15:00 23:00 07:00 15:00 23:00 Intake Total 480 ml 100 ml 720 ml Output Total 200 ml 200 ml 275 ml Balance 280 ml -100 ml 445 ml Intake Oral 480 ml 720 ml IV Total 100 ml Output Urine Total 200 ml 200 ml 275 ml # Bowel Movements 0 1 2 Result Diagram: 03/04/18 0701 03/04/18 0701 Imaging Last Impressions Brain MRI 02/25/18 0000 Signed Impressions: Service Date/Time: Sunday, February 25, 2018 10:36 - CONCLUSION: 1. No acute hemorrhage, mass or infarction. 2. Area of apparent gliosis in the left occipital lobe with no restricted diffusion. Tio Koehler MD Abdomen/Pelvis CT 02/24/18 1159 Signed Impressions: Service Date/Time: Sunday, February 25, 2018 10:16 - CONCLUSION: 1. Peritoneal dialysis catheter in place with small amount of ascitic fluid. 2. Bilateral pleural effusions and consolidation in the posterior lower lobes. Please see chest CT for further details. 3. Unremarkable bowel gas pattern. Tio Koehler MD Head CT 02/24/18 0000 Signed Impressions: Service Date/Time: Saturday, February 24, 2018 10:38 - CONCLUSION: 1. Focal area of decreased signal in the left occipital lobe likely representing an area of encephalomalacia. 2. No acute hemorrhage or mass effect. Tio Koehler MD Chest X-Ray 02/24/18 0000 Signed Impressions: Service Date/Time: Saturday, February 24, 2018 12:03 - CONCLUSION: 1. Cardiomegaly with mild edema pattern. More focal consolidation at the left lung base could represent a superimposed bronchopneumonia. Small effusions. Ian Noyola MD Chest CT 02/24/18 0000 Signed Impressions: Service Date/Time: Sunday, February 25, 2018 10:16 - CONCLUSION: 1. Consolidation in both lower lobes left greater than right. This could represent pneumonia. 2. Bilateral pleural effusions left greater than right. 3. Status post median sternotomy with cardiomegaly and postsurgical change. Tio Koehler MD Abdomen X-Ray 02/24/18 0000 Signed Impressions: Service Date/Time: Saturday, February 24, 2018 12:07 - CONCLUSION: 1. No acute findings within the abdomen. Specifically no free air identified. Ian Noyola MD Aorta w/Runoff CTA 02/21/18 0000 Signed Impressions: Service Date/Time: Wednesday, February 21, 2018 12:39 - CONCLUSION: 1. Diffuse calcified plaque with patent inflow and outflow bilaterally. 2. Severe calcification of the trifurcation vessels bilaterally significantly limits their is evaluation. High-grade stenoses seen involving articular artery and posterior tibial artery on the left. On the right the trifurcation vessels are felt grossly patent. 3. Small left effusion with associated passive atelectasis. Elijah James Jr., MD Foot X-Ray 02/17/18 0000 Signed Impressions: Service Date/Time: Saturday, February 17, 2018 16:46 - CONCLUSION: Negative fast myelitis Gene Garcia MD FACR Objective Remarks General: No acute distress. Heart: Regular rate and rhythm. No murmur. Lungs: Clear to auscultation bilaterally. No wheezes, rales, or rhonchi. Breathing is nonlabored. Abdomen: Soft, nontender, nondistended. Extremities: No lower extremity edema. Status post right midfoot amputation. Left foot bandaged. Psych: Alert and oriented. Procedures 03/02/18 Left hallux amputation, left second digit amputation sharp excisional debridement dorsal left foot ulcer Urinary Catheter: No Vascular Central Line Catheter: No A/P Problem List: (1) Dry gangrene ICD Code: I96 - Gangrene, not elsewhere classified Status: Acute (2) HTN (hypertension) ICD Code: I10 - Essential (primary) hypertension (3) ESRD on peritoneal dialysis ICD Code: N18.6 - End stage renal disease; Z99.2 - Dependence on renal dialysis Assessment and Plan 1. Metabolic encephalopathy: Likely secondary to sepsis, uremia. Continue to monitor mental status. Resolved. 2. Tremors, involuntary movements: Likely secondary to metabolic encephalopathy. Evaluated by neurology. 3. Sepsis: Secondary to cellulitis, peritonitis, pneumonia. Appreciate infectious disease recommendations. Continue antibiotics. 4. Peritonitis: Resolved. Fluid culture negative. 5. Left hallux gangrene, left second digit gangrene: Status post amputation. Management per podiatry. May need skin grafts later this week. 6. Aspiration pneumonia: Continue antibiotics per infectious disease. 7. End-stage renal disease: On peritoneal dialysis. Appreciate nephrology recommendations. 8. Coronary artery disease: Status post previous CABG. Currently asymptomatic. 9. Hypertensive urgency: Continue carvedilol, hydralazine. Vasotec, clonidine as needed. 10. DVT prophylaxis: Heparin. Discharge Planning Pending further clinical improvement and clearance by podiatry. Problem Qualifiers (1) HTN (hypertension): Qualified Codes: I10 - Essential (primary) hypertension Finesse Campos MD Mar 05, 2018 10:16
[2018-03-05] MEDS: NS + KCL 20 MEQ INJ 1,000 ML IV SCH (12:17)
[2018-03-05] MEDS: cloNIDine HCL 0.1 MG TAB PO PRN (15:58)
--- NOTE | 2018-03-05 17:34 | HHI.NPPN ---
Subjective General Problems: Anemia, Heart Disease Renal Failure: End Stage Renal Disease History of Present Illness . Patient is a 57-year-old male with history of end-stage renal disease, hypertension who is on peritoneal dialysis follows with Dr. Franks, he has a burning injury in the left foot and developed dry gangrene in toes he has been admitted for further evaluation and treatment: Outpatient is on peritoneal dialysis and follows with Yvonne. Additional Remarks Patient is alert and oriented. Denies any SOB. Rahul wrap on left lower extremity. Review of Systems Respiratory Respiratory Remarks Denies any SOB Cardiovascular Cardiac Remarks Denies any CP Gastrointestinal GI Remarks denies any abdominal pain Objective Data Data 03/05/18 03/06/18 19:00 07:00 Intake Total 720 ml Balance 720 ml Intake Oral 720 ml # Voids 5 # Bowel Movements 0 Vital Signs Date Time Temp Pulse Resp B/P (MAP) Pulse Ox O2 Delivery O2 Flow Rate FiO2 03/05/18 16:41 98.2 84 20 188/79 (115) 97 03/05/18 12:21 98 21 03/05/18 11:49 98.7 87 20 217/88 (131) 96 196/94 (128) 03/05/18 09:08 98.7 85 20 143/93 (110) 99 03/05/18 04:00 97.1 86 16 123/68 (86) 03/05/18 00:00 97.8 93 16 160/76 (104) 96 03/04/18 22:18 21 03/04/18 20:00 98.8 91 16 146/67 (93) 97 -: 03/04/18 0701 03/04/18 0701 Physical Exam General Appearance: No Acute Distress, Comfortable Neck Neck Exam: Neck Supple Pulmonary Resp Exam: Breath Sounds Equal, No Distress Cardiology CV Exam: Regular, Normal Sinus Rhythm Gastrointestinal/Abdomen GI Exam: Soft, Non-Tender, Bowel Sounds Present Genitourinary Exam: Flank Non-Tender Integumentary Skin Exam: Lesion(s) Extremeties Extremities Exam: Trace Edema Neurologic Neuro Exam: Alert, Awake Assessment/Plan Discussed Condition With: Patient Assessment Summary: End Stage Renal Disease Electrolyte Assessment: Hyponatremia Problem List: (1) ESRD on peritoneal dialysis ICD Codes: N18.6 - End stage renal disease; Z99.2 - Dependence on renal dialysis Plan: ESRD on PD nightly CTA noted. PD fluid is clear, CT abd. and MRI brain results noted. PD cultures negative Left hallux amputation, left second digit amputation 03/02/18 Plan Continue CCPD Continue Phoslo. ID is following, On Cefepime Patient seen and examined, agree with above. PD machine was turned off by floor nurse Doing better, discharge one cleared by Podiatry. follows with Dr. Franks (2) HTN (hypertension) ICD Codes: I10 - Essential (primary) hypertension Plan: Better controlled (3) Dry gangrene ICD Codes: I96 - Gangrene, not elsewhere classified Status: Acute Plan: History of burn to left foot POD #1 Problem Qualifiers (1) HTN (hypertension): Qualified Codes: I10 - Essential (primary) hypertension Catracho Johnson MD Mar 05, 2018 17:34
[2018-03-06] VITALS: BP 223/81; PULSE 85; RESP 16; TEMP 98; O2SAT 95
[2018-03-06] MEDS: hydrALAZINE HCL 10 MG TAB PO SCH ×3 (00:17→12:38)
[2018-03-06] MEDS: cloNIDine HCL 0.1 MG TAB PO PRN (01:33)
[2018-03-06 04:00] VITALS: BP 162/72; PULSE 79; RESP 16; TEMP 97.5; O2SAT 98
[2018-03-06 07:47] VITALS: BP 198/81; PULSE 84; RESP 20; TEMP 98.1; O2SAT 97
[2018-03-06] MEDS: INSULIN ASPART SUPPLEMENTAL SCALE SQ SCH ×4 (08:00→21:00)
[2018-03-06] MEDS: COLLAGENASE OINT 30 GM TUBE TOPICAL SCH (09:00)
[2018-03-06] MEDS: MULTIVITAMINS/MINERALS THERAPEUTIC TAB PO SCH (09:00)
[2018-03-06] MEDS: SODIUM CHLORIDE 0.9% FLUSH 10 ML FLUSH IV FLUSH SCH ×2 (09:00→21:00)
[2018-03-06] MEDS: HEPARIN SODIUM - SQ 10,000 UNITS/ML VIAL SQ SCH ×2 (09:00→21:00)
[2018-03-06 09:06] LABS: AUTOMATED NEUTROPHIL # 5.8 TH/MM3 (1.8-7.7); BASOPHIL # 0.1 TH/MM3 (0-0.2); BASOPHIL % 1.4 % (0.0-2.0); EOSINOPHIL # 0.3 TH/MM3 (0-0.4); EOSINOPHIL % 3.3 % (0.0-4.0); HEMATOCRIT 40.7 % (39.0-51.0); HEMOGLOBIN 13.3 GM/DL (13.0-17.0); LYMPH % 14.3 % (9.0-44.0); LYMPHOCYTE # 1.3 TH/MM3 (1.0-4.8); MEAN CELL VOLUME 89.6 FL (80.0-100.0); MEAN CORPUSCULAR HEMOGLOBIN 29.4 PG (27.0-34.0); MEAN CORPUSCULAR HGB CONC 32.8 % (32.0-36.0); MEAN PLATELET VOLUME 9.2 FL (7.0-11.0); MONO % 15.5 % (0.0-8.0); MONOCYTE # 1.4 TH/MM3 (0-0.9); NEUT % 65.5 % (16.0-70.0); PLATELET COUNT 210 TH/MM3 (150-450); RED BLOOD COUNT 4.54 MIL/MM3 (4.50-5.90); WHITE BLOOD COUNT 8.9 TH/MM3 (4.0-11.0)
[2018-03-06] MEDS: CEFEPIME INJ 1,000 MG in SODIUM CHLORIDE 0.9% INJ 100 ML IV SCH (09:28)
[2018-03-06] MEDS: CARVEDILOL 12.5 MG TAB PO SCH ×2 (09:41→21:00)
[2018-03-06] MEDS: DOCUSATE SODIUM 50 MG/SENNA 8.6 MG TAB PO SCH ×2 (09:41→21:00)
[2018-03-06] MEDS: ISOSORBIDE MONONITRATE 30 MG CR TAB (IMDUR) PO SCH (09:41)
[2018-03-06] MEDS: CALCIUM ACETATE 667 MG CAP PO SCH ×3 (09:42→16:44)
[2018-03-06 09:45] LABS: BICARBONATE 26.2 MEQ/L (21.0-32.0); CALCIUM 8.4 MG/DL (8.5-10.1)
--- NOTE | 2018-03-06 09:45 | HHI.FPPN ---
Subjective Remarks MORE ALERT LOOKS BETTER ASKING FOR TREMOR MEDS PRN D/W RN Objective Vitals Vital Signs Date Time Temp Pulse Resp B/P (MAP) Pulse Ox O2 Delivery O2 Flow Rate FiO2 03/06/18 07:47 98.1 84 20 198/81 (120) 97 03/06/18 04:00 97.5 79 16 162/72 (102) 98 03/06/18 00:00 98.0 85 16 223/81 (128) 95 03/05/18 20:00 98.3 83 16 223/83 (129) 97 03/05/18 16:41 98.2 84 20 188/79 (115) 97 03/05/18 12:21 98 21 03/05/18 11:49 98.7 87 20 217/88 (131) 96 196/94 (128) I/O 03/05/18 03/05/18 03/05/18 03/06/18 03/06/18 03/06/18 07:00 15:00 23:00 07:00 15:00 23:00 Intake Total 720 ml Output Total 100 ml 2283 ml Balance 720 ml -100 ml -2283 ml Intake Oral 720 ml Output Urine Total 100 ml Hemodialysis 2283 ml # Voids 5 # Bowel Movements 0 Result Diagram: 03/06/18 0832 03/04/18 0701 Objective Remarks GENERAL: overall weakness, SKIN: Warm and dry. left gangrenous toes HEAD: Atraumatic. Normocephalic. EYES: Pupils equal and round. No scleral icterus. No injection or drainage. ENT: No nasal bleeding or discharge. Mucous membranes pink and moist. NECK: Trachea midline. No JVD. CARDIOVASCULAR: Regular rate and rhythm. RESPIRATORY: No accessory muscle use. Clear to auscultation. Breath sounds equal bilaterally. GASTROINTESTINAL: Abdomen soft, non-tender, nondistended. Hepatic and splenic margins not palpable. MUSCULOSKELETAL: Extremities without clubbing, cyanosis, or edema. wounds at feet are stable. NEUROLOGICAL: Awake and alert x one. No obvious cranial nerve deficits. Motor grossly within normal limits. 1 out of 5 muscle strength in the arms and legs. Normal speech. PSYCHIATRIC: Appropriate mood and affect; insight and judgment normal. Medications and IVs Current Medications Medications (Trade) Dose Ordered Sig/Cesar Route Start Time Stop Time Status Last Admin Cefepime HCl 1000 mg/Sodium Chloride 100 ml @ 200 mls/hr DAILY IV 02/18/18 09:00 03/06/18 09:28 (NS Flush) 2 ml UNSCH PRN IV FLUSH 02/17/18 20:15 (NS Flush) 2 ml BID IV FLUSH 02/17/18 21:00 03/05/18 21:00 (Zofran Inj) 4 mg Q6H PRN IVP 02/17/18 20:15 02/27/18 10:17 (Heparin Inj) 5,000 units Q12H SQ 02/18/18 09:00 03/06/18 09:00 (Tylenol) 650 mg Q6H PRN PO 02/17/18 20:15 02/18/18 00:37 ([place] 5-325 Mg) 1 tab Q4H PRN PO 02/17/18 20:15 02/27/18 22:16 (Morphine Inj) 2 mg Q3H PRN IV PUSH 02/17/18 20:15 02/27/18 06:12 (Jacqui-Colace) 1 tab BID PO 02/17/18 21:00 03/06/18 09:41 (Milk Of Magnesia Liq) 30 ml Q12H PRN PO 02/17/18 20:15 (Senokot) 17.2 mg Q12H PRN PO 02/17/18 20:15 (Dulcolax Supp) 10 mg DAILY PRN RECTAL 02/17/18 20:15 (Lactulose Liq) 30 ml DAILY PRN PO 02/17/18 20:15 03/04/18 08:38 (Ativan) 1 mg BID PRN PO 02/17/18 23:15 02/28/18 22:07 (Theragran M Tab) 1 tab DAILY PO 02/18/18 09:00 03/05/18 09:29 (Ambien) 10 mg HS PRN PO 02/17/18 23:15 03/03/18 23:30 (D50w (Vial) Inj) 50 ml UNSCH PRN IV PUSH 02/18/18 00:15 (Glucagon Inj) 1 mg UNSCH PRN OTHER 02/18/18 00:15 (NovoLOG SUPPLEMENTAL SCALE) 1 ACHS SLIDING SCALE SQ 02/18/18 08:00 03/04/18 13:04 (Heparin Inj) 1,000 units WITH DIALYSIS PRN XX 02/18/18 11:00 (NS Flush) 10 ml UNSCH PRN IV FLUSH 02/18/18 11:00 (Santyl Oint) 1 applic DAILY TOPICAL 02/19/18 09:00 03/03/18 08:23 (Phoslo) 2,001 mg TID PO 02/19/18 18:00 03/06/18 09:42 (Catapres) 0.1 mg Q6H PRN PO 02/19/18 17:15 03/06/18 01:33 (Coreg) 12.5 mg BID PO 02/21/18 21:00 03/06/18 09:41 (Trandate Inj) 10 mg Q4H PRN IV PUSH 02/24/18 21:00 02/27/18 06:09 (Apresoline Inj) 20 mg Q4H PRN IV PUSH 02/24/18 21:00 02/27/18 11:25 Miscellaneous Information Patient in critical care unit? Ass... Q361D .XX 02/24/18 22:15 02/24/18 22:15 (Catapres-Tts 0.1mg Patch.7d) 1 patch Q7D PRN T-DERMAL 02/28/18 01:45 (Vasotec Inj) 2.5 mg Q4H PRN IV PUSH 02/28/18 01:45 03/06/18 09:57 (Ativan Inj) 0.5 mg Q6H PRN IV PUSH 02/28/18 10:00 02/28/18 10:21 (Imdur) 90 mg DAILY PO 03/01/18 09:00 03/06/18 09:41 (Apresoline) 10 mg Q6HR PO 03/04/18 12:00 03/06/18 06:43 Potassium Chloride/Sodium Chloride 1,000 ml @ 30 mls/hr Q24H IV 03/05/18 10:00 03/05/18 12:17 A/P Assessment and Plan Assessment and Plan 1. Metabolic encephalopathy: Likely secondary to sepsis, uremia. Continue to monitor mental status. Resolved. 2. Tremors, involuntary movements: Likely secondary to metabolic encephalopathy. Evaluated by neurology. 3. Sepsis: Secondary to cellulitis, peritonitis, pneumonia. Appreciate infectious disease recommendations. Continue antibiotics. 4. Peritonitis: Resolved. Fluid culture negative. 5. Left hallux gangrene, left second digit gangrene: Status post amputation. Management per podiatry. May need skin grafts later this week. 6. Aspiration pneumonia: Continue antibiotics per infectious disease. 7. End-stage renal disease: On peritoneal dialysis. Appreciate nephrology recommendations. 8. Coronary artery disease: Status post previous CABG. Currently asymptomatic. 9. Hypertensive urgency: Continue carvedilol, hydralazine. Vasotec, clonidine as needed. 10. DVT prophylaxis: Heparin. Discharge Planning Pending further clinical improvement and clearance by podiatry. Problem List: (1) Dry gangrene ICD Codes: I96 - Gangrene, not elsewhere classified Status: Acute (2) HTN (hypertension) ICD Codes: I10 - Essential (primary) hypertension (3) ESRD on peritoneal dialysis ICD Codes: N18.6 - End stage renal disease; Z99.2 - Dependence on renal dialysis Problem Qualifiers (1) HTN (hypertension): Qualified Codes: I10 - Essential (primary) hypertension Jarad Lin MD Mar 06, 2018 09:45
[2018-03-06] MEDS: NS + KCL 20 MEQ INJ 1,000 ML IV SCH (09:46)
[2018-03-06 09:47] LABS: CREATININE 5.47 MG/DL (0.60-1.30)
[2018-03-06] MEDS: ENALAPRILAT 2.5 MG/2 ML VIAL IV PUSH PRN (09:57)
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
[2018-03-06 11:48] VITALS: BP 175/72; PULSE 84; RESP 20; TEMP 98.3; O2SAT 98
[2018-03-06] MEDS: LACTULOSE SYRUP 20 GM/30 ML CUP PO PRN (12:39)
[2018-03-06] MEDS: hydrALAZINE HCL 25 MG TAB PO SCH ×2 (16:43→23:43)
[2018-03-06] MEDS ORDERED: BISACODYL 10 MG SUPP RECTAL ONE (17:15)
--- NOTE | 2018-03-06 21:11 | HHI.PR ---
Subjective Remarks Patient seen bedside s/p left hallux and second digit amp with dorsal left foot ulcer. Denies N,V,F,CH. Objective Vital Signs Date Time Temp Pulse Resp B/P (MAP) Pulse Ox O2 Delivery O2 Flow Rate FiO2 03/06/18 11:48 98.3 84 20 175/72 (106) 98 03/06/18 07:47 98.1 84 20 198/81 (120) 97 03/06/18 04:00 97.5 79 16 162/72 (102) 98 03/06/18 00:00 98.0 85 16 223/81 (128) 95 I/O 03/05/18 03/05/18 03/05/18 03/06/18 03/06/18 03/06/18 07:00 15:00 23:00 07:00 15:00 23:00 Intake Total 720 ml 660 ml Output Total 100 ml 2283 ml Balance 720 ml -100 ml -2283 ml 660 ml Intake Oral 720 ml 660 ml Output Urine Total 100 ml Hemodialysis 2283 ml # Voids 5 3 # Bowel Movements 0 1 Result Diagram: 03/06/18 0832 03/06/18 0832 Imaging Last Impressions Brain MRI 02/25/18 0000 Signed Impressions: Service Date/Time: Sunday, February 25, 2018 10:36 - CONCLUSION: 1. No acute hemorrhage, mass or infarction. 2. Area of apparent gliosis in the left occipital lobe with no restricted diffusion. Tio Koehler MD Abdomen/Pelvis CT 02/24/18 1159 Signed Impressions: Service Date/Time: Sunday, February 25, 2018 10:16 - CONCLUSION: 1. Peritoneal dialysis catheter in place with small amount of ascitic fluid. 2. Bilateral pleural effusions and consolidation in the posterior lower lobes. Please see chest CT for further details. 3. Unremarkable bowel gas pattern. Tio Koehler MD Head CT 02/24/18 0000 Signed Impressions: Service Date/Time: Saturday, February 24, 2018 10:38 - CONCLUSION: 1. Focal area of decreased signal in the left occipital lobe likely representing an area of encephalomalacia. 2. No acute hemorrhage or mass effect. Tio Koehler MD Chest X-Ray 02/24/18 0000 Signed Impressions: Service Date/Time: Saturday, February 24, 2018 12:03 - CONCLUSION: 1. Cardiomegaly with mild edema pattern. More focal consolidation at the left lung base could represent a superimposed bronchopneumonia. Small effusions. Ian Noyola MD Chest CT 02/24/18 0000 Signed Impressions: Service Date/Time: Sunday, February 25, 2018 10:16 - CONCLUSION: 1. Consolidation in both lower lobes left greater than right. This could represent pneumonia. 2. Bilateral pleural effusions left greater than right. 3. Status post median sternotomy with cardiomegaly and postsurgical change. Tio Koehler MD Abdomen X-Ray 02/24/18 0000 Signed Impressions: Service Date/Time: Saturday, February 24, 2018 12:07 - CONCLUSION: 1. No acute findings within the abdomen. Specifically no free air identified. Ian Noyola MD Aorta w/Runoff CTA 02/21/18 0000 Signed Impressions: Service Date/Time: Wednesday, February 21, 2018 12:39 - CONCLUSION: 1. Diffuse calcified plaque with patent inflow and outflow bilaterally. 2. Severe calcification of the trifurcation vessels bilaterally significantly limits their is evaluation. High-grade stenoses seen involving articular artery and posterior tibial artery on the left. On the right the trifurcation vessels are felt grossly patent. 3. Small left effusion with associated passive atelectasis. Elijah James Jr., MD Foot X-Ray 02/17/18 0000 Signed Impressions: Service Date/Time: Saturday, February 17, 2018 16:46 - CONCLUSION: Negative fast myelitis Gene Garcia MD FACR Procedures s/p left hallux amputation s/p left second digit amputation Other Results Microbiology Date/Time Source Procedure Growth Status 02/23/18 20:16 Blood Arterial Line Aerobic Blood Culture - Final NO GROWTH IN 5 DAYS Complete 02/23/18 20:16 Blood Arterial Line Anaerobic Blood Culture - Final NO GROWTH IN 5 DAYS Complete 02/24/18 04:15 Fluid Peritoneal Fluid Gram Stain - Final Complete 02/24/18 04:15 Fluid Peritoneal Fluid Body Fluid Culture - Final NO GROWTH IN 72 HRS.--AEROBICALLY OR ... Complete Objective Remarks Sutures intact with skin well coapted to first and second metatarsal. Mild edema , erythema noted to suture line. Dorsal left foot ulcer with granular base and epithelialization noted to wound margins. ENTER[employer]IST under 3 secs to amputation site as well as 3,4,5. Medications and IVs Current Medications Medications (Trade) Dose Ordered Sig/Cesar Route Start Time Stop Time Status Last Admin Cefepime HCl 1000 mg/Sodium Chloride 100 ml @ 200 mls/hr DAILY IV 02/18/18 09:00 03/06/18 09:28 (NS Flush) 2 ml UNSCH PRN IV FLUSH 02/17/18 20:15 (NS Flush) 2 ml BID IV FLUSH 02/17/18 21:00 03/05/18 21:00 (Zofran Inj) 4 mg Q6H PRN IVP 02/17/18 20:15 02/27/18 10:17 (Heparin Inj) 5,000 units Q12H SQ 02/18/18 09:00 03/06/18 09:00 (Tylenol) 650 mg Q6H PRN PO 02/17/18 20:15 02/18/18 00:37 (Monterey 5-325 Mg) 1 tab Q4H PRN PO 02/17/18 20:15 02/27/18 22:16 (Morphine Inj) 2 mg Q3H PRN IV PUSH 02/17/18 20:15 02/27/18 06:12 (Jacqui-Colace) 1 tab BID PO 02/17/18 21:00 03/06/18 09:41 (Milk Of Magnesia Liq) 30 ml Q12H PRN PO 02/17/18 20:15 (Senokot) 17.2 mg Q12H PRN PO 02/17/18 20:15 (Dulcolax Supp) 10 mg DAILY PRN RECTAL 02/17/18 20:15 (Lactulose Liq) 30 ml DAILY PRN PO 02/17/18 20:15 03/06/18 12:39 (Ativan) 1 mg BID PRN PO 02/17/18 23:15 02/28/18 22:07 (Theragran M Tab) 1 tab DAILY PO 02/18/18 09:00 03/05/18 09:29 (Ambien) 10 mg HS PRN PO 02/17/18 23:15 03/03/18 23:30 (D50w (Vial) Inj) 50 ml UNSCH PRN IV PUSH 02/18/18 00:15 (Glucagon Inj) 1 mg UNSCH PRN OTHER 02/18/18 00:15 (NovoLOG SUPPLEMENTAL SCALE) 1 ACHS SLIDING SCALE SQ 02/18/18 08:00 03/04/18 13:04 (Heparin Inj) 1,000 units WITH DIALYSIS PRN XX 02/18/18 11:00 (NS Flush) 10 ml UNSCH PRN IV FLUSH 02/18/18 11:00 (Santyl Oint) 1 applic DAILY TOPICAL 02/19/18 09:00 03/03/18 08:23 (Phoslo) 2,001 mg TID PO 02/19/18 18:00 03/06/18 16:44 (Catapres) 0.1 mg Q6H PRN PO 02/19/18 17:15 03/06/18 01:33 (Coreg) 12.5 mg BID PO 02/21/18 21:00 03/06/18 09:41 (Trandate Inj) 10 mg Q4H PRN IV PUSH 02/24/18 21:00 02/27/18 06:09 (Apresoline Inj) 20 mg Q4H PRN IV PUSH 02/24/18 21:00 02/27/18 11:25 Miscellaneous Information Patient in critical care unit? Ass... Q361D .XX 02/24/18 22:15 02/24/18 22:15 (Catapres-Tts 0.1mg Patch.7d) 1 patch Q7D PRN T-DERMAL 02/28/18 01:45 (Vasotec Inj) 2.5 mg Q4H PRN IV PUSH 02/28/18 01:45 03/06/18 09:57 (Ativan Inj) 0.5 mg Q6H PRN IV PUSH 02/28/18 10:00 02/28/18 10:21 (Imdur) 90 mg DAILY PO 03/01/18 09:00 03/06/18 09:41 Potassium Chloride/Sodium Chloride 1,000 ml @ 30 mls/hr Q24H IV 03/05/18 10:00 03/05/18 12:17 (Apresoline) 25 mg Q6HR PO 03/06/18 18:00 03/06/18 16:43 Assessment and Plan Assessment and Plan 57-year-old male s/p left foot hallux, second digit amputation with left foot dorsal ulcer Patient examined and evaluated all questions answered Dressing changed with nurse bedside Patient ok to be discharged from podiatry standpoint Patient admits to not being strong enough to go home, he is requesting rehab until he can regain his strength Patient to be evaluated by physical therapy for rehab potential Xerform to incision and dorsal foot ulcer Please start santyl to dorsal foot ulcer María Hernandez DPM Mar 06, 2018 21:11
[2018-03-06 21:20] VITALS: BP 164/71; PULSE 79; RESP 18; TEMP 97.8; O2SAT 98
[2018-03-07] VITALS (7 sets, daily range): BP systolic 137–208; BP diastolic 74–85; PULSE 76–87; RESP 18–20; TEMP 98–98.8; O2SAT 96–99
[2018-03-07] MEDS: hydrALAZINE HCL 25 MG TAB PO SCH ×2 (06:02→12:37)
[2018-03-07] MEDS: INSULIN ASPART SUPPLEMENTAL SCALE SQ SCH ×4 (08:00→21:00)
[2018-03-07] MEDS: ISOSORBIDE MONONITRATE 30 MG CR TAB (IMDUR) PO SCH (08:48)
[2018-03-07] MEDS: SODIUM CHLORIDE 0.9% FLUSH 10 ML FLUSH IV FLUSH SCH ×2 (08:49→21:08)
[2018-03-07] MEDS: CEFEPIME INJ 1,000 MG in SODIUM CHLORIDE 0.9% INJ 100 ML IV SCH (08:49)
[2018-03-07] MEDS: MULTIVITAMINS/MINERALS THERAPEUTIC TAB PO SCH (08:49)
[2018-03-07] MEDS: CARVEDILOL 12.5 MG TAB PO SCH ×2 (08:49→21:07)
[2018-03-07] MEDS: DOCUSATE SODIUM 50 MG/SENNA 8.6 MG TAB PO SCH ×2 (08:49→21:07)
[2018-03-07] MEDS: COLLAGENASE OINT 30 GM TUBE TOPICAL SCH (08:51)
[2018-03-07] MEDS: HEPARIN SODIUM - SQ 10,000 UNITS/ML VIAL SQ SCH ×2 (08:51→21:08)
[2018-03-07] MEDS: CALCIUM ACETATE 667 MG CAP PO SCH ×3 (08:55→16:57)
--- NOTE | 2018-03-07 10:26 | HHI.DS ---
Discharge Summary Admission Date Feb 17, 2018 at 20:08 Discharge Date: Mar 07, 2018 Admitting Diagnosis HYPERKALEMIA, NECROTIC TOE (1) Dry gangrene ICD Codes: I96 - Gangrene, not elsewhere classified Status: Acute (2) HTN (hypertension) ICD Codes: I10 - Essential (primary) hypertension (3) ESRD on peritoneal dialysis ICD Codes: N18.6 - End stage renal disease; Z99.2 - Dependence on renal dialysis Procedures s/p left hallux amputation s/p left second digit amputation CBC/BMP: 03/06/18 0832 03/06/18 0832 Significant Findings Laboratory Tests Test 03/06/18 08:32 Monocytes (%) (Auto) 15.5 % (0.0-8.0) Monocytes # (Auto) 1.4 TH/MM3 (0-0.9) Blood Urea Nitrogen 61 MG/DL (7-18) Creatinine 5.47 MG/DL (0.60-1.30) Random Glucose 121 MG/DL (74-106) Calcium Level 8.4 MG/DL (8.5-10.1) Sodium Level 135 MEQ/L (136-145) Estimat Glomerular Filtration Rate 11 ML/MIN (>89) PE at Discharge GENERAL: SKIN: Warm and dry. HEAD: Atraumatic. Normocephalic. EYES: Pupils equal and round. No scleral icterus. No injection or drainage. ENT: No nasal bleeding or discharge. Mucous membranes pink and moist. NECK: Trachea midline. No JVD. CARDIOVASCULAR: Regular rate and rhythm. RESPIRATORY: No accessory muscle use. Clear to auscultation. Breath sounds equal bilaterally. GASTROINTESTINAL: Abdomen soft, non-tender, nondistended. Hepatic and splenic margins not palpable. MUSCULOSKELETAL: Extremities without clubbing, cyanosis, or edema. No obvious deformities. NEUROLOGICAL: Awake and alert. No obvious cranial nerve deficits. Motor grossly within normal limits. Five out of 5 muscle strength in the arms and legs. Normal speech. PSYCHIATRIC: Appropriate mood and affect; insight and judgment normal. Hospital Course 57 year old CM, admit with- 1. Metabolic encephalopathy: Likely secondary to sepsis, uremia. Continue to monitor mental status. Resolved. 2. Tremors, involuntary movements: Likely secondary to metabolic encephalopathy. Evaluated by neurology. 3. Sepsis: Secondary to cellulitis, peritonitis, pneumonia. Appreciate infectious disease recommendations. Continue antibiotics. 4. Peritonitis: Resolved. Fluid culture negative. 5. Left hallux gangrene, left second digit gangrene: Status post amputation. Management per podiatry. 6. Aspiration pneumonia: Continue antibiotics per infectious disease. 7. End-stage renal disease: On peritoneal dialysis. Appreciate nephrology recommendations. 8. Coronary artery disease: Status post previous CABG. Currently asymptomatic. 9. Hypertensive urgency: Continue carvedilol, hydralazine. Vasotec, clonidine as needed. DPM DR ROOT SIGNED OFF. DC TO SNF. Xerform to incision and dorsal foot ulcer Please start santyl to dorsal foot ulcer Pt Condition on Discharge: Stable Discharge Disposition: Discharge to SNF Discharge Instructions DIET: Follow Instructions for: Renal Failure Diet Activities you can perform: See Additionl Instruction Additional Activity Instructio: see podiatry recomendations Follow up Referrals: Nephrology - 2-[address] Reese PCP Follow-up - 2-[address] arnold Podiatry - 2-3 Days with Fermin Roldan DPM Continued Medications: Aspirin (Aspirin) 81 Mg Chew 81 MG CHEW DAILY, TAB 0 Refills Calcium Acetate (Phosphate Bin (Calcium Acetate) 667 Mg Cap 1 TAB PO TID Carvedilol (Coreg) 6.25 Mg Tab 6.25 MG PO BID, #60 TAB 0 Refills Isosorbide Mononitrate ER (Isosorbide Mononitrate ER) 60 Mg Tab 60 MG PO DAILY for Prevent Chest Pain, #30 TAB 0 Refills Lorazepam (Lorazepam) 1 Mg Tab 1 MG PO BID PRN for ANXIETY, #60 TAB 0 Refills (This prescription has been renewed) Multiple Vitamins W/ Minerals (Thera-M) 1 Tab 1 TAB PO DAILT for Nutritional Supplement, TAB 0 Refills Zolpidem (Ambien) 10 Mg Tab 10 MG PO HS PRN for INSOMNIA, #30 TAB 0 Refills (This prescription has been renewed) Jarad Arnold MD Mar 07, 2018 10:26
[2018-03-07] MEDS: NS + KCL 20 MEQ INJ 1,000 ML IV SCH (12:45)
[2018-03-07] MEDS: LACTULOSE SYRUP 20 GM/30 ML CUP PO PRN (14:01)
[2018-03-07] MEDS ORDERED: DOXY100C PO (15:00)
--- NOTE | 2018-03-07 16:00 | HHI.IDPN ---
Subjective Subjective Remarks is a 57 y/o CM with PMHx of ESRD on Peritoneal dialysis ( in hospital), HTN, ? Peripheral Neuropathy,CAD s/p CABG. Per review of records it appears that a week [employer] patient was reportedly repairing a radiator when he injured his left foot. He denied any fever, chills, night sweats. He was reportedly sent to ED by wound care MD. Upon arrival to the ED patient was found to have a necrotic left 1st and 2nd toe. Podiatry (), (Vascular surgery) have been following the patient along with Nephrology (Nephrology). On arrival, BP 134/100, HR 80, O2 sat 98% on RA, Afebrile. WBC normal. ESR 49. K+ 6.5. Foot X-ray negative for Osteomyelitis. Vascular surgery did not think patient needed any surgery. Per RN patient was to be discharged but discharge held yday due to Altered Mental Status. saw patient this am and CT head was obtained which showed no new stroke or bleed just chronic encephalomalacia. EEG was ordered and is being changed to STAT by me. Patient has continued to receive PD in hospital and last session was last night. ID consulted for Evaluation and management of Possible Sepsis, Pneumonia. Notes reviewed. Overnight events noted. Patient alert and awake. Status post left hallux amputation, left second digit amputation sharp excisional debridement dorsal left foot ulcer Denies fevers or chills Denies rash Denies cough, shortness of breath or dyspnea Denies nausea, vomiting, diarrhea, dysuria WBC within normal, latest WBC 7.5 BC negative Undergoing PD, PD fluid culture negative Pathology pending Antibiotics ANTIBIOTICS IV Cefepime Current Medications Medications (Trade) Dose Ordered Sig/Cesar Route Start Time Stop Time Status Last Admin Cefepime HCl 1000 mg/Sodium Chloride 100 ml @ 200 mls/hr DAILY IV 02/18/18 09:00 02/25/18 08:01 (NS Flush) 2 ml UNSCH PRN IV FLUSH 02/17/18 20:15 (NS Flush) 2 ml BID IV FLUSH 02/17/18 21:00 02/25/18 20:32 (Zofran Inj) 4 mg Q6H PRN IVP 02/17/18 20:15 02/25/18 00:33 (Heparin Inj) 5,000 units Q12H SQ 02/18/18 09:00 02/25/18 20:13 (Tylenol) 650 mg Q6H PRN PO 02/17/18 20:15 02/18/18 00:37 (Erwin 5-325 Mg) 1 tab Q4H PRN PO 02/17/18 20:15 (Morphine Inj) 2 mg Q3H PRN IV PUSH 02/17/18 20:15 02/26/18 06:34 (Jacqui-Colace) 1 tab BID PO 02/17/18 21:00 02/25/18 20:13 (Milk Of Magnesia Liq) 30 ml Q12H PRN PO 02/17/18 20:15 (Senokot) 17.2 mg Q12H PRN PO 02/17/18 20:15 (Dulcolax Supp) 10 mg DAILY PRN RECTAL 02/17/18 20:15 (Lactulose Liq) 30 ml DAILY PRN PO 02/17/18 20:15 (Imdur) 60 mg DAILY PO 02/18/18 09:00 02/25/18 08:01 (Ativan) 1 mg BID PRN PO 02/17/18 23:15 02/25/18 20:13 (Theragran M Tab) 1 tab DAILY PO 02/18/18 09:00 02/25/18 08:01 (Ambien) 10 mg HS PRN PO 02/17/18 23:15 02/18/18 21:58 (D50w (Vial) Inj) 50 ml UNSCH PRN IV PUSH 02/18/18 00:15 (Glucagon Inj) 1 mg UNSCH PRN OTHER 02/18/18 00:15 (NovoLOG SUPPLEMENTAL SCALE) 1 ACHS SLIDING SCALE SQ 02/18/18 08:00 (Heparin Inj) 1,000 units WITH DIALYSIS PRN XX 02/18/18 11:00 (NS Flush) 10 ml UNSCH PRN IV FLUSH 02/18/18 11:00 (Santyl Oint) 1 applic DAILY TOPICAL 02/19/18 09:00 02/25/18 19:04 (Phoslo) 2,001 mg TID PO 02/19/18 18:00 02/25/18 19:07 (Catapres) 0.1 mg Q6H PRN PO 02/19/18 17:15 02/24/18 22:58 (Coreg) 12.5 mg BID PO 02/21/18 21:00 02/25/18 20:13 Sodium Chloride 1,000 ml @ 84 mls/hr [id number] IV 02/24/18 10:00 02/25/18 21:45 (Trandate Inj) 10 mg Q4H PRN IV PUSH 02/24/18 21:00 02/24/18 22:58 (Apresoline Inj) 20 mg Q4H PRN IV PUSH 02/24/18 21:00 02/26/18 06:32 Miscellaneous Information Patient in critical care unit? Ass... [id number] 02/24/18 22:15 02/24/18 22:15 (Chlorhexidine 2% Cloth) 3 pack DAILY@04 TOPICAL 02/25/18 04:00 03/01/18 04:01 02/26/18 04:00 (Chlorhexidine 2% Cloth) 3 pack UNSCH PRN TOPICAL 02/24/18 22:15 03/01/18 22:02 Nicardipine HCl 25 mg/Sodium Chloride 250 ml @ 50 mls/hr TITRATE PRN IV 02/25/18 00:30 02/25/18 05:13 Lines Peripheral line, line no evidence of infection Past Medical History ESRD on PD HTN Past Surgical History CABG, Cholecystectomy Allergies: Coded Allergies: gabapentin (Unverified Allergy, Mild, Itching, 02/17/18) Objective . Vital Signs Date Time Temp Pulse Resp B/P (MAP) Pulse Ox O2 Delivery O2 Flow Rate FiO2 03/07/18 12:08 98.0 77 20 141/81 (101) 97 03/07/18 07:47 98.1 76 20 185/77 (113) 97 03/07/18 05:35 98.2 82 18 196/74 (114) 99 03/07/18 00:00 98.4 78 18 181/75 (110) 96 03/06/18 21:20 97.8 79 18 164/71 (102) 98 03/07/18 03/07/18 03/08/18 15:00 23:00 07:00 Output Total 2308 ml Balance -2308 ml Peritoneal Fluid 2308 ml . Laboratory Tests Test 03/06/18 08:32 White Blood Count 8.9 TH/MM3 Red Blood Count 4.54 MIL/MM3 Hemoglobin 13.3 GM/DL Hematocrit 40.7 % Mean Corpuscular Volume 89.6 FL Mean Corpuscular Hemoglobin 29.4 PG Mean Corpuscular Hemoglobin Concent 32.8 % Red Cell Distribution Width 15.0 % Platelet Count 210 TH/MM3 Mean Platelet Volume 9.2 FL Neutrophils (%) (Auto) 65.5 % Lymphocytes (%) (Auto) 14.3 % Monocytes (%) (Auto) 15.5 % Eosinophils (%) (Auto) 3.3 % Basophils (%) (Auto) 1.4 % Neutrophils # (Auto) 5.8 TH/MM3 Lymphocytes # (Auto) 1.3 TH/MM3 Monocytes # (Auto) 1.4 TH/MM3 Eosinophils # (Auto) 0.3 TH/MM3 Basophils # (Auto) 0.1 TH/MM3 CBC Comment DIFF FINAL Differential Comment Laboratory Tests Test 03/06/18 08:32 Blood Urea Nitrogen 61 MG/DL Creatinine 5.47 MG/DL Random Glucose 121 MG/DL Calcium Level 8.4 MG/DL Sodium Level 135 MEQ/L Potassium Level 3.5 MEQ/L Chloride Level 102 MEQ/L Carbon Dioxide Level 26.2 MEQ/L Anion Gap 7 MEQ/L Estimat Glomerular Filtration Rate 11 ML/MIN Imaging Last Impressions Brain MRI 02/25/18 0000 Signed Impressions: Service Date/Time: Sunday, February 25, 2018 10:36 - CONCLUSION: 1. No acute hemorrhage, mass or infarction. 2. Area of apparent gliosis in the left occipital lobe with no restricted diffusion. Tio Koehler MD Abdomen/Pelvis CT 02/24/18 1159 Signed Impressions: Service Date/Time: Sunday, February 25, 2018 10:16 - CONCLUSION: 1. Peritoneal dialysis catheter in place with small amount of ascitic fluid. 2. Bilateral pleural effusions and consolidation in the posterior lower lobes. Please see chest CT for further details. 3. Unremarkable bowel gas pattern. Tio Koehler MD Head CT 02/24/18 0000 Signed Impressions: Service Date/Time: Saturday, February 24, 2018 10:38 - CONCLUSION: 1. Focal area of decreased signal in the left occipital lobe likely representing an area of encephalomalacia. 2. No acute hemorrhage or mass effect. Tio Koehler MD Chest X-Ray 02/24/18 0000 Signed Impressions: Service Date/Time: Saturday, February 24, 2018 12:03 - CONCLUSION: 1. Cardiomegaly with mild edema pattern. More focal consolidation at the left lung base could represent a superimposed bronchopneumonia. Small effusions. Ian Noyola MD Chest CT 02/24/18 0000 Signed Impressions: Service Date/Time: Sunday, February 25, 2018 10:16 - CONCLUSION: 1. Consolidation in both lower lobes left greater than right. This could represent pneumonia. 2. Bilateral pleural effusions left greater than right. 3. Status post median sternotomy with cardiomegaly and postsurgical change. Tio Koehler MD Abdomen X-Ray 02/24/18 0000 Signed Impressions: Service Date/Time: Saturday, February 24, 2018 12:07 - CONCLUSION: 1. No acute findings within the abdomen. Specifically no free air identified. Ian Noyola MD Aorta w/Runoff CTA 02/21/18 0000 Signed Impressions: Service Date/Time: Wednesday, February 21, 2018 12:39 - CONCLUSION: 1. Diffuse calcified plaque with patent inflow and outflow bilaterally. 2. Severe calcification of the trifurcation vessels bilaterally significantly limits their is evaluation. High-grade stenoses seen involving articular artery and posterior tibial artery on the left. On the right the trifurcation vessels are felt grossly patent. 3. Small left effusion with associated passive atelectasis. Elijah James Jr., MD Foot X-Ray 02/17/18 0000 Signed Impressions: Service Date/Time: Saturday, February 17, 2018 16:46 - CONCLUSION: Negative fast myelitis Gene Garcia MD FACR Last Impressions Brain MRI 02/25/18 0000 Signed Impressions: Service Date/Time: Sunday, February 25, 2018 10:36 - CONCLUSION: 1. No acute hemorrhage, mass or infarction. 2. Area of apparent gliosis in the left occipital lobe with no restricted diffusion. Tio Koehler MD Abdomen/Pelvis CT 02/24/18 1159 Signed Impressions: Service Date/Time: Sunday, February 25, 2018 10:16 - CONCLUSION: 1. Peritoneal dialysis catheter in place with small amount of ascitic fluid. 2. Bilateral pleural effusions and consolidation in the posterior lower lobes. Please see chest CT for further details. 3. Unremarkable bowel gas pattern. Tio Koehler MD Head CT 02/24/18 Signed Impressions: Service Date/Time: Saturday, February 24, 2018 10:38 - CONCLUSION: 1. Focal area of decreased signal in the left occipital lobe likely representing an area of encephalomalacia. 2. No acute hemorrhage or mass effect. Tio Koehler MD Chest X-Ray 02/24/18 Signed Impressions: Service Date/Time: Saturday, February 24, 2018 12:03 - CONCLUSION: 1. Cardiomegaly with mild edema pattern. More focal consolidation at the left lung base could represent a superimposed bronchopneumonia. Small effusions. Ian Noyola MD Chest CT 02/24/18 Signed Impressions: Service Date/Time: Sunday, February 25, 2018 10:16 - CONCLUSION: 1. Consolidation in both lower lobes left greater than right. This could represent pneumonia. 2. Bilateral pleural effusions left greater than right. 3. Status post median sternotomy with cardiomegaly and postsurgical change. Tio Koehler MD Abdomen X-Ray 02/24/18 0000 Signed Impressions: Service Date/Time: Saturday, February 24, 2018 12:07 - CONCLUSION: 1. No acute findings within the abdomen. Specifically no free air identified. Ian Noyola MD Aorta w/Runoff CTA 02/21/18 0000 Signed Impressions: Service Date/Time: Wednesday, February 21, 2018 12:39 - CONCLUSION: 1. Diffuse calcified plaque with patent inflow and outflow bilaterally. 2. Severe calcification of the trifurcation vessels bilaterally significantly limits their is evaluation. High-grade stenoses seen involving articular artery and posterior tibial artery on the left. On the right the trifurcation vessels are felt grossly patent. 3. Small left effusion with associated passive atelectasis. Elijah James Jr., MD Foot X-Ray 02/17/18 0000 Signed Impressions: Service Date/Time: Saturday, February 17, 2018 16:46 - CONCLUSION: Negative fast myelitis Gene Garcia MD FACR Physical Exam GENERAL: Patient is a well-nourished, well-developed male. No acute distress. SKIN: Warm and dry and dry. HEAD: Atraumatic. Normocephalic. EYES: Pupils equal round and reactive. No scleral icterus. No injection or drainage. ENT: No nasal drainage. Throat without exudate. No oral thrush. NECK: Trachea midline. Supple, nontender, no meningeal signs. CARDIOVASCULAR: HS audible. Midline CABG scar intact. NTG patch on chest. RESPIRATORY: Diminished but clear to auscultation. GASTROINTESTINAL: Abdomen soft, PD cath site with dressing C/D/I. Abdomen no tenderness to palpation, no rigidity. Bowel sounds active 4. MUSCULOSKELETAL: Left foot in post op dressing. NEUROLOGICAL: Awake, and alert, following commands PSYCHIATRY: Calm and cooperative. LINES: IV line sites with no e.o infection. Assessment & Plan Remarks Left great toe and 2nd toe gangrene possible cellulitis. PD cath related peritonitis possible. Possible Aspiration Pneumonia. acute metabolic encephalopathy: ? seizures, ? uremia, sepsis. - better today ESRD on PD. HTN CAD s/p CABG. Recs DC IV antibiotics. Start oral doxy Dw and : the infected part of the toes was disjointed. The infected part is what was sent for path. No specimen sent for clear margins as the infected toe was disjointed. Ok to DC from ID standpoint on oral doxy for 10 days. Will sign off please call back if any change in clinical condition or questions. Nichole Almonte MD Mar 07, 2018 16:00
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
[2018-03-07] MEDS: hydrALAZINE HCL 50 MG TAB PO SCH ×2 (16:57→23:58)
[2018-03-07] MEDS: DOXYCYCLINE HYCLATE 100 MG TAB PO SCH (16:57)
[2018-03-07] MEDS: LORazepam 1 MG TAB PO PRN (21:07)
[2018-03-08] VITALS (7 sets, daily range): BP systolic 133–200; BP diastolic 65–81; PULSE 75–96; RESP 16–20; TEMP 97.8–98.6; O2SAT 97–100
[2018-03-08] MEDS: cloNIDine HCL 0.1 MG TAB PO PRN (01:45)
[2018-03-08] MEDS: DOXYCYCLINE HYCLATE 100 MG TAB PO SCH ×2 (05:10→17:14)
[2018-03-08] MEDS: hydrALAZINE HCL 50 MG TAB PO SCH ×4 (05:10→23:00)
[2018-03-08] MEDS: INSULIN ASPART SUPPLEMENTAL SCALE SQ SCH ×4 (08:00→20:18)
[2018-03-08] MEDS: CALCIUM ACETATE 667 MG CAP PO SCH ×3 (08:09→17:19)
[2018-03-08] MEDS: ISOSORBIDE MONONITRATE 30 MG CR TAB (IMDUR) PO SCH (08:09)
[2018-03-08] MEDS: HEPARIN SODIUM - SQ 10,000 UNITS/ML VIAL SQ SCH ×2 (08:10→20:15)
[2018-03-08] MEDS: CARVEDILOL 12.5 MG TAB PO SCH ×2 (08:10→20:15)
[2018-03-08] MEDS: MULTIVITAMINS/MINERALS THERAPEUTIC TAB PO SCH (08:10)
[2018-03-08] MEDS: DOCUSATE SODIUM 50 MG/SENNA 8.6 MG TAB PO SCH ×2 (08:10→20:15)
[2018-03-08] MEDS: SODIUM CHLORIDE 0.9% FLUSH 10 ML FLUSH IV FLUSH SCH ×2 (08:10→20:16)
[2018-03-08] MEDS: COLLAGENASE OINT 30 GM TUBE TOPICAL SCH (08:12)
[2018-03-08] MEDS: LORazepam 1 MG TAB PO PRN ×2 (09:55→20:15)
--- NOTE | 2018-03-08 14:26 | HHI.FPPN ---
Objective Vitals Vital Signs Date Time Temp Pulse Resp B/P (MAP) Pulse Ox O2 Delivery O2 Flow Rate FiO2 03/08/18 12:00 98.2 75 20 133/71 (91) 100 Manual Cuff/Auscultation 03/08/18 08:00 97.8 76 16 154/70 (98) 98 03/08/18 04:49 98.6 96 20 147/65 (92) 97 03/08/18 01:44 182/76 (111) 03/07/18 23:55 98.8 87 18 208/85 (126) 97 03/07/18 20:08 98.1 84 20 181/79 (113) 99 03/07/18 16:24 98.0 80 20 137/76 (96) 97 I/O 03/07/18 03/07/18 03/07/18 03/08/18 03/08/18 03/08/18 07:00 15:00 23:00 07:00 15:00 23:00 Intake Total 720 ml Output Total 200 ml 2308 ml 850 ml 1290 ml Balance -200 ml -2308 ml -130 ml -1290 ml Intake Oral 720 ml Output Urine Total 200 ml 850 ml Peritoneal Fluid 2308 ml 1290 ml # Bowel Movements 1 Result Diagram: 03/06/1832 03/06/1832 Objective Remarks GENERAL: overall weakness, SKIN: Warm and dry. left gangrenous toes HEAD: Atraumatic. Normocephalic. EYES: Pupils equal and round. No scleral icterus. No injection or drainage. ENT: No nasal bleeding or discharge. Mucous membranes pink and moist. NECK: Trachea midline. No JVD. CARDIOVASCULAR: Regular rate and rhythm. RESPIRATORY: No accessory muscle use. Clear to auscultation. Breath sounds equal bilaterally. GASTROINTESTINAL: Abdomen soft, non-tender, nondistended. Hepatic and splenic margins not palpable. MUSCULOSKELETAL: Extremities without clubbing, cyanosis, or edema. wounds at feet are stable. NEUROLOGICAL: Awake and alert x one. No obvious cranial nerve deficits. Motor grossly within normal limits. 1 out of 5 muscle strength in the arms and legs. Normal speech. PSYCHIATRIC: Appropriate mood and affect; insight and judgment normal. A/P Assessment and Plan Assessment and Plan 1. Metabolic encephalopathy: Likely secondary to sepsis, uremia. Continue to monitor mental status. Resolved. 2. Tremors, involuntary movements: Likely secondary to metabolic encephalopathy. Evaluated by neurology. 3. Sepsis: Secondary to cellulitis, peritonitis, pneumonia. Appreciate infectious disease recommendations. Continue antibiotics. 4. Peritonitis: Resolved. Fluid culture negative. 5. Left hallux gangrene, left second digit gangrene: Status post amputation. Management per podiatry. May need skin grafts later this week. 6. Aspiration pneumonia: Continue antibiotics per infectious disease. 7. End-stage renal disease: On peritoneal dialysis. Appreciate nephrology recommendations. 8. Coronary artery disease: Status post previous CABG. Currently asymptomatic. 9. Hypertensive urgency: Continue carvedilol, hydralazine. Vasotec, clonidine as needed. 10. DVT prophylaxis: Heparin. Discharge Planning Pending SNF acceptance. dc completed... Problem List: (1) Dry gangrene ICD Codes: I96 - Gangrene, not elsewhere classified Status: Acute (2) HTN (hypertension) ICD Codes: I10 - Essential (primary) hypertension (3) ESRD on peritoneal dialysis ICD Codes: N18.6 - End stage renal disease; Z99.2 - Dependence on renal dialysis Problem Qualifiers (1) HTN (hypertension): Qualified Codes: I10 - Essential (primary) hypertension Jarad Lin MD Mar 08, 2018 14:26
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
[2018-03-09] VITALS (7 sets, daily range): BP systolic 148–185; BP diastolic 67–83; PULSE 68–80; RESP 18–22; TEMP 98.1–98.6; O2SAT 97–99
[2018-03-09] MEDS: cloNIDine HCL 0.1 MG TAB PO PRN (00:03)
[2018-03-09] MEDS: hydrALAZINE HCL 50 MG TAB PO SCH ×3 (05:10→17:35)
[2018-03-09] MEDS: DOXYCYCLINE HYCLATE 100 MG TAB PO SCH ×2 (05:10→16:18)
[2018-03-09] MEDS: INSULIN ASPART SUPPLEMENTAL SCALE SQ SCH ×4 (08:00→21:00)
[2018-03-09] MEDS: COLLAGENASE OINT 30 GM TUBE TOPICAL SCH (09:00)
[2018-03-09] MEDS: SODIUM CHLORIDE 0.9% FLUSH 10 ML FLUSH IV FLUSH SCH ×2 (09:00→21:15)
[2018-03-09] MEDS: DOCUSATE SODIUM 50 MG/SENNA 8.6 MG TAB PO SCH ×2 (09:01→21:15)
[2018-03-09] MEDS: ISOSORBIDE MONONITRATE 30 MG CR TAB (IMDUR) PO SCH (09:01)
[2018-03-09] MEDS: MULTIVITAMINS/MINERALS THERAPEUTIC TAB PO SCH (09:01)
[2018-03-09] MEDS: CARVEDILOL 12.5 MG TAB PO SCH ×2 (09:01→21:15)
[2018-03-09] MEDS: CALCIUM ACETATE 667 MG CAP PO SCH ×3 (09:01→17:35)
[2018-03-09] MEDS: HEPARIN SODIUM - SQ 10,000 UNITS/ML VIAL SQ SCH ×2 (09:02→21:15)
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
[2018-03-09] MEDS: LORazepam 1 MG TAB PO PRN (12:55)
--- NOTE | 2018-03-09 15:52 | HHI.FPPN ---
Subjective Remarks c/o weakness c/o feet pain c/o cough and congestion unable to sit up d/w RN Objective Vitals Vital Signs Date Time Temp Pulse Resp B/P (MAP) Pulse Ox O2 Delivery O2 Flow Rate FiO2 03/09/18 13:05 98.3 78 22 179/74 (109) 98 03/09/18 08:57 98.2 79 18 97 171/74 (106) 03/09/18 05:09 148/67 (94) Automatic Cuff 03/09/18 05:01 98.4 79 20 185/72 (109) 97 03/09/18 01:53 150/67 (94) 03/08/18 23:58 98.1 86 18 173/74 (107) 97 03/08/18 22:52 86 200/81 (120) 03/08/18 16:00 97.8 80 20 154/74 (100) 99 I/O 03/08/18 03/08/18 03/08/18 03/09/18 03/09/18 03/09/18 07:00 15:00 23:00 07:00 15:00 23:00 Output Total 1290 ml 200 ml 1100 ml Balance -1290 ml -200 ml -1100 ml Output Urine Total 200 ml Peritoneal Fluid 1290 ml 1100 ml Result Diagram: 03/06/1832 03/06/1832 Objective Remarks GENERAL: overall weakness, SKIN: Warm and dry. left gangrenous toes HEAD: Atraumatic. Normocephalic. EYES: Pupils equal and round. No scleral icterus. No injection or drainage. ENT: No nasal bleeding or discharge. Mucous membranes pink and moist. NECK: Trachea midline. No JVD. CARDIOVASCULAR: Regular rate and rhythm. RESPIRATORY: No accessory muscle use. Clear to auscultation. Breath sounds equal bilaterally. GASTROINTESTINAL: Abdomen soft, non-tender, nondistended. Hepatic and splenic margins not palpable. MUSCULOSKELETAL: Extremities without clubbing, cyanosis, or edema. wounds at feet are stable. NEUROLOGICAL: Awake and alert x one. No obvious cranial nerve deficits. Motor grossly within normal limits. 1 out of 5 muscle strength in the arms and legs. Normal speech. PSYCHIATRIC: Appropriate mood and affect; insight and judgment normal. Medications and IVs Current Medications Medications (Trade) Dose Ordered Sig/Cesar Route Start Time Stop Time Status Last Admin (NS Flush) 2 ml UNSCH PRN IV FLUSH 02/17/18 20:15 (NS Flush) 2 ml BID IV FLUSH 02/17/18 21:00 03/09/18 09:00 (Zofran Inj) 4 mg Q6H PRN IVP 02/17/18 20:15 02/27/18 10:17 (Heparin Inj) 5,000 units Q12H SQ 02/18/18 09:00 03/09/18 09:02 (Tylenol) 650 mg Q6H PRN PO 02/17/18 20:15 02/18/18 00:37 ([place] 5-325 Mg) 1 tab Q4H PRN PO 02/17/18 20:15 02/27/18 22:16 (Morphine Inj) 2 mg Q3H PRN IV PUSH 02/17/18 20:15 02/27/18 06:12 (Jacqui-Colace) 1 tab BID PO 02/17/18 21:00 03/09/18 09:01 (Milk Of Magnesia Liq) 30 ml Q12H PRN PO 02/17/18 20:15 (Senokot) 17.2 mg Q12H PRN PO 02/17/18 20:15 (Dulcolax Supp) 10 mg DAILY PRN RECTAL 02/17/18 20:15 (Lactulose Liq) 30 ml DAILY PRN PO 02/17/18 20:15 03/07/18 14:01 (Ativan) 1 mg BID PRN PO 02/17/18 23:15 03/09/18 12:55 (Theragran M Tab) 1 tab DAILY PO 02/18/18 09:00 03/09/18 09:01 (Ambien) 10 mg HS PRN PO 02/17/18 23:15 03/03/18 23:30 (D50w (Vial) Inj) 50 ml UNSCH PRN IV PUSH 02/18/18 00:15 (Glucagon Inj) 1 mg UNSCH PRN OTHER 02/18/18 00:15 (NovoLOG SUPPLEMENTAL SCALE) 1 ACHS SLIDING SCALE SQ 02/18/18 08:00 03/06/18 21:00 (Heparin Inj) 1,000 units WITH DIALYSIS PRN XX 02/18/18 11:00 (NS Flush) 10 ml UNSCH PRN IV FLUSH 02/18/18 11:00 (Santyl Oint) 1 applic DAILY TOPICAL 02/19/18 09:00 03/08/18 08:12 (Phoslo) 2,001 mg TID PO 02/19/18 18:00 03/09/18 12:35 (Catapres) 0.1 mg Q6H PRN PO 02/19/18 17:15 03/09/18 00:03 (Coreg) 12.5 mg BID PO 02/21/18 21:00 03/09/18 09:01 (Trandate Inj) 10 mg Q4H PRN IV PUSH 02/24/18 21:00 02/27/18 06:09 (Apresoline Inj) 20 mg Q4H PRN IV PUSH 02/24/18 21:00 02/27/18 11:25 Miscellaneous Information Patient in critical care unit? Ass... Q361D .XX 02/24/18 22:15 02/24/18 22:15 (Catapres-Tts 0.1mg Patch.7d) 1 patch Q7D PRN T-DERMAL 02/28/18 01:45 (Vasotec Inj) 2.5 mg Q4H PRN IV PUSH 02/28/18 01:45 03/06/18 09:57 (Ativan Inj) 0.5 mg Q6H PRN IV PUSH 02/28/18 10:00 02/28/18 10:21 (Imdur) 90 mg DAILY PO 03/01/18 09:00 03/09/18 09:01 (Vibratab) 100 mg Q12H PO 03/07/18 16:00 03/09/18 05:10 (Apresoline) 50 mg Q6HR PO 03/07/18 18:00 03/09/18 12:35 A/P Assessment and Plan Assessment and Plan 1. Metabolic encephalopathy: Likely secondary to sepsis, uremia. Continue to monitor mental status. Resolved. 2. Tremors, involuntary movements: Likely secondary to metabolic encephalopathy. Evaluated by neurology. 3. Sepsis: Secondary to cellulitis, peritonitis, pneumonia. Appreciate infectious disease recommendations. Continue antibiotics. 4. Peritonitis: Resolved. Fluid culture negative. 5. Left hallux gangrene, left second digit gangrene: Status post amputation. Management per podiatry. May need skin grafts later this week. 6. Aspiration pneumonia: Continue antibiotics per infectious disease. 7. End-stage renal disease: On peritoneal dialysis. Appreciate nephrology recommendations. 8. Coronary artery disease: Status post previous CABG. Currently asymptomatic. 9. Hypertensive urgency: Continue carvedilol, hydralazine. Vasotec, clonidine as needed. 10. DVT prophylaxis: Heparin. Discharge Planning Pending SNF acceptance. dc completed...Maybe to [facility] if son brings in pd equipment. Problem List: (1) Dry gangrene ICD Codes: I96 - Gangrene, not elsewhere classified Status: Acute (2) HTN (hypertension) ICD Codes: I10 - Essential (primary) hypertension (3) ESRD on peritoneal dialysis ICD Codes: N18.6 - End stage renal disease; Z99.2 - Dependence on renal dialysis Problem Qualifiers (1) HTN (hypertension): Qualified Codes: I10 - Essential (primary) hypertension Jarad Lin MD Mar 09, 2018 15:52
[2018-03-10] VITALS: BP 188/65; PULSE 81; RESP 18; TEMP 98; O2SAT 96
[2018-03-10] MEDS: LORazepam 1 MG TAB PO PRN ×2 (01:26→08:25)
[2018-03-10] MEDS: hydrALAZINE HCL 50 MG TAB PO SCH ×3 (01:26→13:06)
[2018-03-10 04:00] VITALS: BP 172/71; PULSE 84; RESP 18; TEMP 97; O2SAT 97
[2018-03-10] MEDS: DOXYCYCLINE HYCLATE 100 MG TAB PO SCH (04:15)
[2018-03-10 07:50] VITALS: BP 149/65; PULSE 84; RESP 19; TEMP 98; O2SAT 98
[2018-03-10] MEDS: INSULIN ASPART SUPPLEMENTAL SCALE SQ SCH ×2 (08:00→12:00)
[2018-03-10] MEDS: MULTIVITAMINS/MINERALS THERAPEUTIC TAB PO SCH (08:21)
[2018-03-10] MEDS: CALCIUM ACETATE 667 MG CAP PO SCH ×2 (08:21→13:06)
[2018-03-10] MEDS: DOCUSATE SODIUM 50 MG/SENNA 8.6 MG TAB PO SCH (08:21)
[2018-03-10] MEDS: CARVEDILOL 12.5 MG TAB PO SCH (08:21)
[2018-03-10] MEDS: ISOSORBIDE MONONITRATE 30 MG CR TAB (IMDUR) PO SCH (08:21)
[2018-03-10] MEDS: HEPARIN SODIUM - SQ 10,000 UNITS/ML VIAL SQ SCH (08:21)
[2018-03-10] MEDS: SODIUM CHLORIDE 0.9% FLUSH 10 ML FLUSH IV FLUSH SCH (09:00)
[2018-03-10] MEDS: COLLAGENASE OINT 30 GM TUBE TOPICAL SCH (09:00)
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
--- NOTE | 2018-03-10 09:34 | HHI.FPPN ---
Objective Vitals Vital Signs Date Time Temp Pulse Resp B/P (MAP) Pulse Ox O2 Delivery O2 Flow Rate FiO2 03/10/18 07:50 98.0 84 19 149/65 (93) 98 03/10/18 04:00 97.0 84 18 172/71 (104) 97 03/10/18 00:00 98.0 81 18 188/65 (106) 96 03/09/18 20:00 98.1 80 18 179/83 (115) 99 03/09/18 17:07 98.6 68 20 166/75 (105) 98 03/09/18 13:05 98.3 78 22 179/74 (109) 98 I/O 03/09/18 03/09/18 03/09/18 03/10/18 03/10/18 03/10/18 07:00 15:00 23:00 07:00 15:00 23:00 Intake Total 240 ml Output Total 1100 ml 450 ml 2462 ml Balance -1100 ml -210 ml -2462 ml Intake Oral 240 ml Output Urine Total 450 ml Peritoneal Fluid 1100 ml 1231 ml Hemodialysis 1231 ml Result Diagram: 03/06/1832 03/06/1832 Objective Remarks GENERAL: overall weakness, SKIN: Warm and dry. left gangrenous toes HEAD: Atraumatic. Normocephalic. EYES: Pupils equal and round. No scleral icterus. No injection or drainage. ENT: No nasal bleeding or discharge. Mucous membranes pink and moist. NECK: Trachea midline. No JVD. CARDIOVASCULAR: Regular rate and rhythm. RESPIRATORY: No accessory muscle use. Clear to auscultation. Breath sounds equal bilaterally. GASTROINTESTINAL: Abdomen soft, non-tender, nondistended. Hepatic and splenic margins not palpable. MUSCULOSKELETAL: Extremities without clubbing, cyanosis, or edema. wounds at feet are stable. NEUROLOGICAL: Awake and alert x one. No obvious cranial nerve deficits. Motor grossly within normal limits. 1 out of 5 muscle strength in the arms and legs. Normal speech. PSYCHIATRIC: Appropriate mood and affect; insight and judgment normal. A/P Assessment and Plan Assessment and Plan 1. Metabolic encephalopathy: Likely secondary to sepsis, uremia. Continue to monitor mental status. Resolved. 2. Tremors, involuntary movements: Likely secondary to metabolic encephalopathy. Evaluated by neurology. 3. Sepsis: Secondary to cellulitis, peritonitis, pneumonia. Appreciate infectious disease recommendations. Continue antibiotics. 4. Peritonitis: Resolved. Fluid culture negative. 5. Left hallux gangrene, left second digit gangrene: Status post amputation. Management per podiatry. May need skin grafts later this week. 6. Aspiration pneumonia: Continue antibiotics per infectious disease. 7. End-stage renal disease: On peritoneal dialysis. Appreciate nephrology recommendations. 8. Coronary artery disease: Status post previous CABG. Currently asymptomatic. 9. Hypertensive urgency: Continue carvedilol, hydralazine. Vasotec, clonidine as needed. 10. DVT prophylaxis: Heparin. Discharge Planning Pending SNF acceptance. dc completed...Maybe to [place] if son brings in pd equipment. Problem List: (1) Dry gangrene ICD Codes: I96 - Gangrene, not elsewhere classified Status: Acute (2) HTN (hypertension) ICD Codes: I10 - Essential (primary) hypertension (3) ESRD on peritoneal dialysis ICD Codes: N18.6 - End stage renal disease; Z99.2 - Dependence on renal dialysis Problem Qualifiers (1) HTN (hypertension): Qualified Codes: I10 - Essential (primary) hypertension Jarad Lin MD Mar 10, 2018 09:34
[2018-03-10 12:03] VITALS: BP 139/65; PULSE 79; RESP 19; TEMP 98.5; O2SAT 97
--- NOTE | 2018-03-10 12:59 | HHI.DS ---
Discharge Summary Admission Date Feb 17, 2018 at 20:08 Discharge Date: Mar 10, 2018 Admitting Diagnosis HYPERKALEMIA, NECROTIC TOE (1) Dry gangrene ICD Codes: I96 - Gangrene, not elsewhere classified Status: Acute (2) HTN (hypertension) ICD Codes: I10 - Essential (primary) hypertension (3) ESRD on peritoneal dialysis ICD Codes: N18.6 - End stage renal disease; Z99.2 - Dependence on renal dialysis Procedures s/p left hallux amputation s/p left second digit amputation CBC/BMP: 03/06/18 0832 03/06/18 0832 PE at Discharge GENERAL: SKIN: Warm and dry. HEAD: Atraumatic. Normocephalic. EYES: Pupils equal and round. No scleral icterus. No injection or drainage. ENT: No nasal bleeding or discharge. Mucous membranes pink and moist. NECK: Trachea midline. No JVD. CARDIOVASCULAR: Regular rate and rhythm. RESPIRATORY: No accessory muscle use. Clear to auscultation. Breath sounds equal bilaterally. GASTROINTESTINAL: Abdomen soft, non-tender, nondistended. Hepatic and splenic margins not palpable. MUSCULOSKELETAL: Extremities without clubbing, cyanosis, or edema. No obvious deformities. NEUROLOGICAL: Awake and alert. No obvious cranial nerve deficits. Motor grossly within normal limits. Five out of 5 muscle strength in the arms and legs. Normal speech. PSYCHIATRIC: Appropriate mood and affect; insight and judgment normal. Hospital Course Hospital course and plan was - 1. Metabolic encephalopathy: Likely secondary to sepsis, uremia. Continue to monitor mental status. Resolved. 2. Tremors, involuntary movements: Likely secondary to metabolic encephalopathy. Evaluated by neurology. 3. Sepsis: Secondary to cellulitis, peritonitis, pneumonia. Appreciate infectious disease recommendations. Continue antibiotics. 4. Peritonitis: Resolved. Fluid culture negative. 5. Left hallux gangrene, left second digit gangrene: Status post amputation. Management per podiatry. May need skin grafts later this week. 6. Aspiration pneumonia: Continue antibiotics per infectious disease. 7. End-stage renal disease: On peritoneal dialysis. Appreciate nephrology recommendations. 8. Coronary artery disease: Status post previous CABG. Currently asymptomatic. 9. Hypertensive urgency: Continue carvedilol, hydralazine. Vasotec, clonidine as needed. 10. DVT prophylaxis: Heparin. Discharge to- SNF Pt Condition on Discharge: Stable Discharge Disposition: Discharge to SNF Discharge Instructions DIET: Follow Instructions for: Renal Failure Diet Activities you can perform: See Additionl Instruction Additional Activity Instructio: see podiatry recomendations Follow up Referrals: Nephrology - 2-[address] Reese PCP Follow-up - 2-[address] arnold Podiatry - 2-3 Days with Fermin Roldan DPM SNF/[facility]/ with [facility] New Medications: Doxycycline Hyclate (Doxycycline Hyclate) 100 Mg Cap 100 MG PO BID for Infection for 10 Days, #20 CAP 0 Refills Continued Medications: Aspirin (Aspirin) 81 Mg Chew 81 MG CHEW DAILY, TAB 0 Refills Calcium Acetate (Phosphate Bin (Calcium Acetate) 667 Mg Cap 1 TAB PO TID Carvedilol (Coreg) 6.25 Mg Tab 6.25 MG PO BID, #60 TAB 0 Refills Isosorbide Mononitrate ER (Isosorbide Mononitrate ER) 60 Mg Tab 60 MG PO DAILY for Prevent Chest Pain, #30 TAB 0 Refills Lorazepam (Lorazepam) 1 Mg Tab 1 MG PO BID PRN for ANXIETY, #60 TAB 0 Refills (This prescription has been renewed) Multiple Vitamins W/ Minerals (Thera-M) 1 Tab 1 TAB PO DAILT for Nutritional Supplement, TAB 0 Refills Zolpidem (Ambien) 10 Mg Tab 10 MG PO HS PRN for INSOMNIA, #30 TAB 0 Refills (This prescription has been renewed) Jarad Arnold MD Mar 10, 2018 12:59
== END 2018-03-10 15:14 | DRG 255 ==
LOC: NEPD 14:40 → NEDA 20:08 → N07A 22:30 → HIMW 02-24 14:00 → N05A 02-27 11:38
PROVIDERS: ADMIT Family Medicine; ATTEND Family Medicine
PROC: 3E1M39Z Irrigation of Peritoneal Cavity using Dialysate, Percutaneous Approach (ICD-10-PCS; 2018-02-18)
PROC: 0Y6S0Z0 Detachment at Left 2nd Toe, Complete, Open Approach (ICD-10-PCS; 2018-03-02)
PROC: 0JBR0ZZ Excision of Left Foot Subcutaneous Tissue and Fascia, Open Approach (ICD-10-PCS; 2018-03-02)
PROC: 0Y6Q0Z0 Detachment at Left 1st Toe, Complete, Open Approach (ICD-10-PCS; principal; 2018-03-02 17:41)
DX: E11.52 Type 2 diabetes mellitus with diabetic peripheral angiopathy with gangrene (principal); N18.6 End stage renal disease; J69.0 Pneumonitis due to inhalation of food and vomit; G93.41 Metabolic encephalopathy; A41.9 Sepsis, unspecified organism; K65.8 Other peritonitis; J90 Pleural effusion, not elsewhere classified; I12.0 Hypertensive chronic kidney disease with stage 5 chronic kidney disease or end stage renal disease; E87.1 Hypo-osmolality and hyponatremia; T85.71XA Infection and inflammatory reaction due to peritoneal dialysis catheter, initial encounter; E11.40 Type 2 diabetes mellitus with diabetic neuropathy, unspecified; Z99.2 Dependence on renal dialysis; E11.621 Type 2 diabetes mellitus with foot ulcer; L97.529 Non-pressure chronic ulcer of other part of left foot with unspecified severity; E87.6 Hypokalemia; L03.032 Cellulitis of left toe; I25.10 Atherosclerotic heart disease of native coronary artery without angina pectoris; I16.0 Hypertensive urgency; T25.222D Burn of second degree of left foot, subsequent encounter; T31.0 Burns involving less than 10% of body surface; R25.1 Tremor, unspecified; E11.22 Type 2 diabetes mellitus with diabetic chronic kidney disease; E87.5 Hyperkalemia; K59.00 Constipation, unspecified; Z88.8 Allergy status to other drugs, medicaments and biological substances; Z95.1 Presence of aortocoronary bypass graft
CPT/HCPCS: 10060; 11730; 11732; 36600; 70450; 70551; 71045; 71260; 73630; 74019; 74177; 75635; 76937; 80048; 80053; 80202; 82140; 82805; 82948; 83605; 83735; 83986; 84100; 84132; 84157; 85025; 85027; 85652; 86140; 86403; 87040; 87070; 87176; 87205; 87641; 88305; 88311; 89051; 90935; 93005; 93923; 94664; 95819; 96365; 99212; G0463; J0360; J0690; J0692; J1644; J1815; J2060; J2270; J2370; J2405; J2543; J3010; J3370; J3480; J7030; J7050; J7611; L3260; Q9963; Q9967